=== PATIENT | female | born 1940 | race African-American/Black ===

== ENCOUNTER 2021-08-10 16:58 | Inpatient (IN) | payer MEDICARE ==
[~2021-08-10] VITALS: Ht 160 cm; Wt 44.8 kg
[2021-08-10] MEDS ORDERED: IV NORMAL SALINE 1000ML BAG 1,000 ML IV ONE (17:15)
--- NOTE | 2021-08-10 17:32 | PHYS DOC ---
Past Medical History Past Medical History: Bronchitis, Hypertension (SUSAN ALLRED APRN) Smoking Status: Never Smoker (SUSAN ALLRED APRN) General Adult EDM: Chief Complaint: WEAKNESS/GENERALIZED HPI: HPI: Patient is an 81-year-old female that presents today via [facility] for weakness. Patient states for about 1 week she has been having increased weakness. Patient states that she has had some nausea vomiting but unable to elaborate on that. Patient states that she denies chest pain she does have shortness of breath, does have some abdominal pain currently her oxygenation le molina is 88%, her heart rate is currently 132 sinus tach. Patient denies taking any anticoagulation therapy, she does states she takes an aspirin a day. Patient states she did have the Covid vaccine Monty & Monty but has not had any booster or influenza vaccine. Patient has never been to [facility]. (SUSAN ALLRED APRN) HPI: This patient was initially picked up by the nurse practitioner. I assumed care. The nurse practitioner had initially not ordered a portable chest x-ray or plain film, but rather ordered a CT angiogram of the chest abdomen pel pelvis secondary to the patient complaining of shortness of breath and having tachycardia. I personally took my own history, examined the patient myself. The patient reports at least 2 weeks of cough, yellow sputum, progressively worsening shortness of breath, wheezing. She denies hemoptysis. She denies any known sick contacts, denies travel history, denies recent hospitalization within the last 90 days. She reports that last year she received a Monty & Monty COVID vaccine, but she not received a booster. She smokes tobacco, though she reports that she has been trying to quit smoking, only over the last week or so. She is unaware of having had a previous chest x-ray, denies any known history of chronic pulmonary disease, though she does report that "I have bronchitis." She denies lower extremity pain or swelling. She denies any worsening dyspnea with exertion. She reports that she has previously used inhalers, but she has not been using them recently. She has had some generalized fatigue and malaise over the last few days. She has had subjective fevers and chills. (NALLELY ARCE DO) Review of Systems: Review of Systems: Constitutional: Denies fever or chills. [] Eyes: Denies change in visual acuity. [] HENT: Denies nasal congestion or sore throat. [] Respiratory: Shortness of air denies cough. [] Cardiovascular: Denies chest pain or edema. [] GI: Abdominal pain, nausea, vomiting denies bloody stools or diarrhea. [] : Denies dysuria. [] Musculoskeletal: Denies back pain or joint pain. [] Integument: Denies rash. [] Neurologic: Denies headache, focal weakness or sensory changes. [] Endocrine: Denies polyuria or polydipsia. [] Lymphatic: Denies swollen glands. [] Psychiatric: Denies depression or anxiety. [] (SUSAN ALLRED APRN) Heart Score: C/O Chest Pain: N/A Risk Factors: Risk Factors: DM, Current or recent (<one month) smoker, HTN, HLP, family history of CAD, obesity. Risk Scores: Score 0 - 3: 2.5% MACE over next 6 weeks - Discharge Home Score 4 - 6: 20.3% MACE over next 6 weeks - Admit for Clinical Observation Score 7 - 10: 72.7% MACE over next 6 weeks - Early Invasive Strategies (SUSAN ALLRED APRN) C/O Chest Pain: No (YAZMIN,NALLELY M DO) Current Medications: Current Medications Medications (Trade) Dose Ordered Sig/Leo Start Time Stop Time Status Last Admin Dose Admin Sodium Chloride 1,000 ml @ 999 mls/hr 1X ONCE 08/10/21 17:15 08/10/21 18:15 UNV (SUSAN ALLRED APRN) Physical Exam: PE: Constitutional: Well developed, well nourished, moderate distress, non-toxic appearance. [] HENT: Normocephalic, atraumatic, bilateral external ears normal, oropharynx moist, no oral exudates, nose normal. [] Eyes: PERRLA, EOMI, conjunctiva normal, no discharge. [] Neck: Normal range of motion, no tenderness, supple, no stridor. [] Cardiovascular: classroom monitor shows sinus tachycardia, no murmur Lungs & Thorax: Diminished breath sounds on the left, clear breath sounds on the right, increased work of breathing noted Abdomen: Bowel sounds normal, soft, no tenderness, no masses, no pulsatile masses. [] Skin: Warm, dry, no erythema, no rash. [] Back: No tenderness, no CVA tenderness. [] Extremities: No tenderness, no cyanosis, no clubbing, ROM intact, no edema, 1+ peripheral pulses Neurologic: Alert and oriented X 3, normal motor function, normal sensory function, no focal deficits noted. [] Psychologic: Affect normal, judgement normal, mood normal. [] (SUSAN ALLRED APRN) PE: On exam, the patient demonstrates mild to moderate respiratory distress, tachypnea. She is audibly wheezing. Lung exam shows markedly decreased/diminis hed breath sounds in the left chest. Diffuse expiratory wheezing bilaterally. No nasal flaring, no retractions. No cyanosis. She speaks in full and clear sentences. Heart demonstrates mild tachycardia in the low 110s, regular. +2 radial and +2 posterior tibial pulses bilaterally. No peripheral edema noted. No calf tenderness. Abdomen is soft, nondistended, nontender to palpation. No evidence of chest wall trauma or injury noted. Equal chest rise. Abdomen demonstrates no ascites or fluid wave. No contusions or abrasions of the chest, thorax or abdomen. (NALLELY ARCE DO) Current Patient Data: Labs: Laboratory Tests Test 08/10/21 18:25 White Blood Count 7.6 x10^3/uL Red Blood Count 3.72 x10^6/uL Hemoglobin 10.2 g/dL Hematocrit 32.0 % Mean Corpuscular Volume 86 fL Mean Corpuscular Hemoglobin 27 pg Mean Corpuscular Hemoglobin Concent 32 g/dL Red Cell Distribution Width 15.7 % Platelet Count 302 x10^3/uL Neutrophils (%) (Auto) 84 % Lymphocytes (%) (Auto) 2 % Monocytes (%) (Auto) 13 % Eosinophils (%) (Auto) 0 % Basophils (%) (Auto) 0 % Neutrophils # (Auto) 6.4 x10^3/uL Lymphocytes # (Auto) 0.2 x10^3/uL Monocytes # (Auto) 1.0 x10^3/uL Eosinophils # (Auto) 0.0 x10^3/uL Basophils # (Auto) 0.0 x10^3/uL Segmented Neutrophils % 84 % Band Neutrophils % 3 % Lymphocytes % 4 % Monocytes % 9 % Platelet Estimate Adequate Sodium Level 144 mmol/L Potassium Level 4.6 mmol/L Chloride Level 105 mmol/L Carbon Dioxide Level 25 mmol/L Anion Gap 14 Blood Urea Nitrogen 79 mg/dL Creatinine 1.7 mg/dL Estimated GFR (Cockcroft-Gault) 34.7 BUN/Creatinine Ratio 46 Glucose Level 129 mg/dL Lactic Acid Level 2.0 mmol/L Calcium Level 8.8 mg/dL Total Bilirubin 0.6 mg/dL Aspartate Amino Transf (AST/SGOT) 32 U/L Alanine Aminotransferase (ALT/SGPT) 36 U/L Alkaline Phosphatase 87 U/L Troponin I High Sensitivity 11 ng/L PL-Mhp-Y-Type Natriuretic Peptide 1464 pg/mL Total Protein 7.1 g/dL Albumin 2.6 g/dL Albumin/Globulin Ratio 0.6 Current Medications Medications (Trade) Dose Ordered Sig/Leo Route PRN Reason Start Time Stop Time Status Last Admin Dose Admin Sodium Chloride 1,000 ml @ 999 mls/hr 1X ONCE IV 08/10/21 17:15 08/10/21 18:15 DC 08/10/21 18:05 Methylprednisolone Sodium Succinate (SOLU-Medrol 125MG VIAL) 125 mg 1X ONCE IV 08/10/21 19:30 08/10/21 19:31 DC 08/10/21 19:32 Albuterol/ Ipratropium (Duoneb) 3 ml 1X ONCE NEB 08/10/21 19:30 08/10/21 19:31 DC Vital Signs Vital Signs: Vital Signs Date Time Temp Pulse Resp B/P (MAP) Pulse Ox O2 Delivery O2 Flow Rate FiO2 08/10/21 17:00 97.7 138 28 140/80 (100) 98 Nasal Cannula 2.0 97.7 (SERGEI ALLREDEN BULB WEEDER) EKG: EKG: [] (SUSAN ALLRED BULB WEEDER) EKG: EKG was interpreted by Dr. Walker at 1729 I reviewed the EKG myself as well Rhythm is sinus tachycardia Rate is 130 bpm marked artifact No obvious STEMI (NALLELY ARCE DO) Radiology/Procedures: Radiology/Procedures: [] (SUSAN ALLRED BULB WEEDER) Radiology/Procedures: IMAGING REPORT Signed PATIENT: RAUL ALLEN ACCOUNT: [id number] : 1940 LOCATION: [address] [place] [address] AGE: 81 SEX: F EXAM STATUS: ADM IN ORD. PHYSICIAN: NALLELY ARCE DO REASON: cough, dyspnea, wheezing PROCEDURE: PORTABLE CHEST 1V Exam: Chest one view INDICATION: Cough, dyspnea TECHNIQUE: Frontal view of the chest Comparisons: None FINDINGS: The cardiomediastinal silhouette and pulmonary vessels are within normal limits. Opacification of the left hemithorax. IMPRESSION: Opacification left hemithorax, likely related to large pleural effusion. Electronically signed by: Josefa Vicente MD (08/10/2021 10:12 PM) [facility] DICTATED and SIGNED BY: JOSEFA VICENTE MD DATE: 08/10/210 0 IMAGING REPORT Signed PATIENT: RAUL ALLEN ACCOUNT: [id number] : 1940 LOCATION: [address] [place] [address] AGE: 81 SEX: F EXAM STATUS: ADM IN ORD. PHYSICIAN: NALLELY ARCE DO REASON: large left pleural effusion, OMNI 300 60 ML IV PROCEDURE: CT CHEST W/CONTRAST Exam: CT of chest with contrast INDICATION: Large left pleural effusion TECHNIQUE: Sequential axial images through the chest obtained following the administration of 60 mL of Isovue-370 IV contrast. Sagittal and coronal reformatted images were reconstructed from the axial data and reviewed. 3-D reformatted images were reconstructed from the axial data and reviewed. Exposure: One or more of the following in the visualized dose reduction techniques were utilized for this examination: 1. Automated exposure control 2. Adjustment of the MA and/or KV according to patient size 3. Use of iterative of reconstructive technique Comparisons: Chest x-ray same day FINDINGS: Utilized portions of the thyroid are unremarkable. No enlarged mediastinal lymph nodes. Heart size is normal. No pericardial effusion. 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 Pulmonary artery is not enlarged. Airways are patent. There is a large left pleural effusion with complete atelectasis of the left lung. Cavitary lesion in the right upper lobe series 2 image 17 measuring 1.9 cm in long axis with asymmetrically thick rim of soft tissue. No internal fluid component is seen. Visualized upper abdomen is unremarkable. No suspicious osseous lesions or acute fractures. IMPRESSION: 1. Large left pleural effusion causing complete atelectasis of the left lung. 2. Cavitary lesion at the right upper lobe with peripheral soft tissue attenuation. This may represent emphysema with adjacent airspace disease versus cavitating infectious process. Attention on continued follow-up imaging is recommended Electronically signed by: Josefa Vicente MD (08/10/2021 9:15 PM) [facility] DICTATED and SIGNED BY: JOSEFA VICENTE MD DATE: 08/10/21 [id number] (NALLELY ARCE DO) Course & Med Decision Making: Course & Med Decision Making Pertinent Labs and Imaging studies reviewed. (See chart for details) 1956 I discussed this case with Dr. Arce and she has agreed to take over this patient's care at this time. (SUSAN ALLRED APRN) Course & Med Decision Making The patient is placed on supplemental oxygen. On nasal cannula oxygen, she is saturating in the mid 90s. DuoNeb is ordered, IV Solu-Medrol empirically ordered. Covid swab returned as positive. Blood cultures and lactate are ordered. I ordered a portable chest x-ray. There is significant atelectasis and large left-sided pleural effusion. I ordered a CT with contrast of the ch est. There is a large pulmonary lesion concerning for possible developing infectious process or malignancy. I do suspect high likelihood of malignant effusion. The patient reports feeling much better. She is resting comfortably tachypnea is improved, tachycardia is improved. She denies chest pain. I empirically ordered IV doxycycline for her. I explained that she needs to be admitted to the hospital, she will need to see pulmonology, possibly infectious disease. She will require thoracentesis and fluid sampling. She is not manifesting evidence of significant distress at this time, hemodynamically stable, no evidence of hypoxia with supplemental oxygen. She is comfortable with the plan of care. She is excepted for admission by her primary care doct or, Dr. Durbin. (NALLELY ARCE DO) Dragon Disclaimer: Dragon Disclaimer: This electronic medical record was generated, in whole or in part, using a voice recognition dictation system. (SUSAN ALLRED APRN) Departure Departure Impression: Primary Impression: Pleural effusion, left Additional Impressions: Mass of left lung COVID-19 Respiratory failure with hypoxia Qualified Codes: J96.91 - Respiratory failure, unspecified with hypoxia Disposition: ADMITTED INPATIENT Admitting Physician: Chitra Durbin (NALLELY ARCE DO) Condition: GUARDED SUSAN ALLRED APRN Aug 10, 2021 17:32 NALLELY ARCE DO Aug 10, 2021 21:21
[2021-08-10 18:37] LABS: BASO % 0 % (0-3); EOS % 0 % (0-3); HEMOGLOBIN 10.2 g/dL (12.0-15.5); LYMPH # 0.2 x10^3/uL (1.0-4.8); LYMPH % 2 % (24-48); MEAN CORPUSCULAR HEMOGLOBIN 27 pg (25-35); MEAN CORPUSCULAR HGB CONC 32 g/dL (31-37); MEAN CORPUSCULAR VOLUME 86 fL (79-100); MONO % 13 % (0-9); NEUT # 6.4 x10^3/uL (1.8-7.7); NEUT % 84 % (31-73); PLATELET COUNT 302 x10^3/uL (140-400); RED BLOOD COUNT 3.72 x10^6/uL (3.50-5.40); RED CELL DISTRIBUTION WIDTH 15.7 % (11.5-14.5); WHITE BLOOD COUNT 7.6 x10^3/uL (4.0-11.0)
[2021-08-10 18:52] LABS: CALCIUM 8.8 mg/dL (8.5-10.1); CREATININE 1.7 mg/dL (0.6-1.0); GFR 34.7; POTASSIUM 4.6 mmol/L (3.5-5.1)
[2021-08-10 19:06] LABS: ALBUMIN 2.6 g/dL (3.4-5.0); ALBUMIN/GLOBULIN RATIO 0.6 (1.0-1.7); TOTAL BILIRUBIN 0.6 mg/dL (0.2-1.0); TOTAL PROTEIN 7.1 g/dL (6.4-8.2)
[2021-08-10] MEDS ORDERED: methylPREDNISolone SOD SUCC PF 125 MG/2 ML VIAL. IV ONE (19:30)
[2021-08-10] MEDS ORDERED: IPRATRPIUM/ALBUTEROL 0.5/2.5MG 3 ML NEBU. NEB ONE (19:30)
[2021-08-10 19:37] LABS: % BANDS 3 % (0-9); % LYMPHS 4 % (24-48); % MONOS 9 % (0-10); % SEGS 84 % (35-66); PLT ESTIMATE ADEQUATE (ADEQUATE)
[2021-08-10 19:58] LABS: INFLUENZA A PATIENT NEGATIVE (NEGATIVE); INFLUENZA B PATIENT NEGATIVE (NEGATIVE)
[2021-08-10] MEDS ORDERED: IOHEXOL 300 MG/ML 100ML VIAL. IV ONE (21:00)
--- NOTE | 2021-08-10 21:18 | RAD ---
Exam: CT of chest with contrast INDICATION: Large left pleural effusion TECHNIQUE: Sequential axial images through the chest obtained following the administration of 60 mL o f Isovue-370 IV contrast. Sagittal and coronal reformatted images were reconstructed from the axial d vincent and reviewed. 3-D reformatted images were reconstructed from the axial data and reviewed. Exposure: One or more of the following in the visualized dose reduction techniques were utilized for this examination: 1. Automated exposure control 2. Adjustment of the MA and/or KV according to patient size 3. Use of iterative of reconstructive technique Comparisons: Chest x-ray same day FINDINGS: Utilized portions of the thyroid are unremarkable. No enlarged mediastinal lymph nodes. Heart size is normal. No pericardial effusion. Ectatic dilatation of the descending thoracic aorta me asuring up to 3.8 cm in diameter with ulcerated plaque circumferentially. Pulmonary artery is not enl arged. Airways are patent. There is a large left pleural effusion with complete atelectasis of the left lung . Cavitary lesion in the right upper lobe series 2 image 17 measuring 1.9 cm in long axis with asymme trically thick rim of soft tissue. No internal fluid component is seen. Visualized upper abdomen is unremarkable. No suspicious osseous lesions or acute fractures. IMPRESSION: 1. Large left pleural effusion causing complete atelectasis of the left lung. 2. Cavitary lesion at the right upper lobe with peripheral soft tissue attenuation. This may represe nt emphysema with adjacent airspace disease versus cavitating infectious process. Attention on contin ued follow-up imaging is recommended Electronically signed by: Josefa Bunch MD (08/10/2021 9:15 PM) [facility]
[2021-08-10 21:30] LABS: BILIRUBIN,URINE NEGATIVE (NEG); CLARITY,URINE CLEAR; COLOR,URINE YELLOW; PH,URINE 5.5 (<5.0-8.0); PROTEIN,URINE TRACE mg/dL (NEG-TRACE)
[2021-08-10 21:31] LABS: NITRITE,URINE NEGATIVE (NEG); UROBILINOGEN,URINE 0.2 mg/dL (0.2 mg/dL)
[2021-08-10 21:33] LABS: HYALINE CASTS, URINE FEW /HPF
[2021-08-10 21:34] LABS: GRANULAR CASTS,URINE OCCASIONAL /HPF
[2021-08-10 21:35] LABS: RBC,URINE 0 /HPF (0-2); WBC,URINE OCC /HPF (0-4)
[2021-08-10 21:36] LABS: BACTERIA,URINE FEW /HPF (0-FEW)
[2021-08-10 22:00] VITALS: BP 156/74
[2021-08-10] MEDS ORDERED: DOXYCYCLINE HYCLATE 100 MG in IV DEXTROSE 5% 100ML 100 ML IV ONE (22:00)
--- NOTE | 2021-08-10 22:15 | RAD ---
Exam: Chest one view INDICATION: Cough, dyspnea TECHNIQUE: Frontal view of the chest Comparisons: None FINDINGS: The cardiomediastinal silhouette and pulmonary vessels are within normal limits. Opacification of the left hemithorax. IMPRESSION: Opacification left hemithorax, likely related to large pleural effusion. Electronically signed by: Josefa Bunch MD (08/10/2021 10:12 PM) SERGIO
[2021-08-10] MEDS ORDERED: ACET500T33 PO (23:39)
[2021-08-10] MEDS ORDERED: ASPI-886 PO (23:40)
[2021-08-10] MEDS ORDERED: DIPH25CA58 PO (23:40)
[2021-08-11] MEDS ORDERED: OMEG1CAP68 PO (00:13)
[2021-08-11] MEDS ORDERED: ASCO500C PO (00:13)
[2021-08-11] MEDS: diphenhydrAMINE HCL 25 MG CAPSULE PO PRN ×2 (00:22→21:28)
[2021-08-11] MEDS: ACETAMINOPHEN 325 MG TABLET. PO PRN ×2 (00:22→21:28)
--- NOTE | 2021-08-11 01:40 | EKG ---
[facility] [address] [place] [address] Test Date: 2021-08-10 Test Time: 17:26:52 Pat Name: RAUL ALLEN Department: Room: [facility] Gender: F Climate Change Risk Assessor: : 1940 Requested By: SUSAN ALLRED Order Number: [id number] Reading MD: Damian Clements Measurements Intervals Cooter Rate: 130 P: -88 AK: 90 QRS: 39 QRSD: 80 T: 119 QT: 272 QTc: 406 Interpretive Statements SINUS TACHYCARDIA LEFT ATRIAL ABNORMALITY NON SPECIFIC ST-T WAVE CHANGES Electronically Signed On 08-12-2021 17:56:30 [employer] TEAM MEMBER by Damian Clements
--- NOTE | 2021-08-11 02:00 | NUR ---
The patient, RAUL ALLEN, 81 y/o, F admitted by ODETTE MILIAN MD, was given written information regarding hospital policies, unit procedures and mine surveyor HISTORY COMPLETED WELL CAN BE. CALLED HER DAUGHTER AND OBTAINED A SMALL PART OF HER HISTORY LIKE CURRENT ACTIVITY. MEDS NOT KNOWN. UP UNTIL THIS ILLNESS PT HAD BEEN DOING HER OWN THING. SHE DRIVES HERSELF AROUND. Valuables were checked and DOCUMENTED IN EMR. ALL SHE BROUGHT WAS A PAIR OF SOCKS..
[2021-08-11 03:26] VITALS: BP 96/64
[2021-08-11] MEDS ORDERED: ONDANSETRON PF 4 MG/2 ML VIAL. IVP PRN (06:30)
[2021-08-11 07:00] VITALS: BP 117/57
[2021-08-11] MEDS ORDERED: methylPREDNISolone SOD SUCC PF 40 MG/ML VIAL. IV ONE (08:00)
[2021-08-11] MEDS ORDERED: DEXAMETHASONE 4 MG TABLET PO SCH (08:00)
--- NOTE | 2021-08-11 08:27 | CONS ---
DATE OF CONSULTATION: 08/11/2021 REASON FOR CONSULTATION: I was asked to see this 81-year-old lady for abnormal chest x-ray. HISTORY OF PRESENT ILLNESS: She does have history of [id number] smoking, continues to smoke. She presented to Emergency Room via EMS for weakness. She is a poor historian. She has had weakness for the past week. She does have mild shortness of breath. She has a cough. She has had some nausea and vomiting. She denies chest pain. On 4 liters of oxygen, her O2 saturation is 100%. She is tired. She had Monty and Monty vaccine last year. She did not have booster. Her COVID-19 testing is positive. PAST MEDICAL HISTORY: COPD, hypertension. ALLERGIES: No known drug allergies. MEDICATIONS: The patient was given Solu-Medrol and doxycycline in the Emergency Room. SOCIAL HISTORY: History of [id number] smoking, continues to smoke. FAMILY HISTORY: Hypertension. REVIEW OF SYSTEMS: As mentioned as above, other systems otherwise negative. PHYSICAL EXAMINATION: GENERAL: This is a malnourished lady. She is not in distress. VITAL SIGNS: Her O2 saturation on 4 liters of oxygen is 100%, respiratory rate 16, heart rate 100, blood pressure 96/64, temperature 98.1. HEENT: Normocephalic, atraumatic. CARDIOVASCULAR: Regular rate and rhythm. CHEST: Inspection is normal. There is no accessory muscle use. ABDOMEN: There is no paradoxical abdominal motion. EXTREMITIES: There is no cyanosis. SKIN: There is no rash. NEUROLOGICAL: Alert. LABORATORY DATA: I reviewed the following lab data: CT of the chest showed a large left pleural effusion. There is a cavitary lesion, 1.9 cm in right upper lobe area, this may represent emphysema with adjacent airspace disease versus cavitary lesion. WBC 7.6, hemoglobin 10.2, platelet 302. COVID rapid testing positive. Influenza A and B negative. Sodium 144, potassium 4.6, chloride 105, CO2 of 25, BUN 79, creatinine 1.7. BNP 1464, total bilirubin 0.6, AST 32, ALT 36, alkaline phosphatase 87. IMPRESSION: 1. Acute hypoxemic respiratory failure, multifactorial in etiology. 2. Abnormal chest x-ray with large left pleural effusion. I suspect we are dealing with malignancy and this fluid is accumulated gradually as the patient is not in distress. 3. Right upper lobe lesion, emphysema with adjacent airspace disease versus cavitary lesion. 4. Chronic obstructive pulmonary disease with acute exacerbation. 5. Smoker. 6. COVID-19. 7. Hypertension. PLAN AND RECOMMENDATIONS: 1. Titrate FiO2 to keep O2 saturation 92%. 2. Start Solu-Medrol 40 mg IV every 8 hours. 3. Start Rocephin. 4. I will ask IR to place a chest tube, send pleural fluid for pH cytology, cell count, LDH, total protein, glucose, AFB smear with culture, fungal smear with culture, Gram stain and culture. 5. May repeat a CT of the chest after chest tube was placed. 6. Bronchodilator. 7. I have advised her to stop smoking forever. prognosis poor Thank you very much for allowing me to participate in care of this very nice lady. MIHAI DR: Chapis TID: [id number] JOHN
[2021-08-11] MEDS: cefTRIAXone IV Push 1 GM VIAL. IVP SCH (08:37)
[2021-08-11 11:00] VITALS: BP 142/74
--- NOTE | 2021-08-11 12:39 | PDOC ---
Provider Note Date of Service: DATE: 08/11/21 TIME: 12:37 Provider Note Pt seen .H&P dictated.# [id number]. spoke with pts daughter DPOA. poor prognosis. Justifications for Admission Other Justification ODETTE MILIAN MD Aug 11, 2021 12:39
[2021-08-11] MEDS: IV NORMAL SALINE 1000ML BAG 1,000 ML IV SCH (13:20)
[2021-08-11] MEDS: methylPREDNISolone SOD SUCC PF 40 MG/ML VIAL. IV SCH ×2 (14:29→19:29)
[2021-08-11 15:00] VITALS: BP 129/65
--- NOTE | 2021-08-11 15:20 | HP ---
DATE OF SERVICE: 08/11/2021 ADMIT DATE: 08/10/2021 MEDICAL HISTORY AND PHYSICAL REASON FOR ADMISSION TO THE HOSPITAL: Shortness of breath, large left pleural effusion. HISTORY OF PRESENT ILLNESS: The patient is an 81-year-old female. The patient has been not feeling well. She has been weak and she has been losing weight, was brought to the hospital. She was COVID positive. X-ray shows complete whiteout of the left lung, had a CT chest, which shows large pleural effusion, completely collapsed in the left lung. The patient was admitted to the hospital and Pulmonary was consulted. PAST MEDICAL HISTORY: As per the family, last time she was in the hospital was at 3-4 years ago when she broke her hip. Family also said that they found a lump in the breast and then she refused further investigation and treatment, this was 1 year ago. She has a history of COPD, hypertension. ALLERGIES: No known drug allergies. SOCIAL HISTORY: Sixty-pack years, continues to smoke. Denies alcohol. Lives at home. FAMILY HISTORY: Unremarkable and the patient had one J and J vaccination a month ago for COVID. REVIEW OF SYMPTOMS: Feels weak, tired, short of breath. MEDICATIONS AT HOME: Tylenol, aspirin, Benadryl, vitamin C, fish oil, mostly gbxr-zfi-aadhezi medicines. PHYSICAL EXAMINATION: GENERAL: The patient is cachectic. Weight 45 kg, BMI 17. VITAL SIGNS: At the time of exam shows temperature 98, pulse 138, respirations 28, blood pressure 140/80, 98% on 2 liters. HEENT: Head is atraumatic. Pupils equal. Oral cavity, dentures. NECK: Supple. CHEST: Symmetrical. LUNGS: Diminished breath sounds, left lung. CARDIOVASCULAR: S1, S2. ABDOMEN: Soft. No mass palpable. EXTERNAL GENITALIA: No Jackson. RECTUM: Deferred. EXTREMITIES: No calf tenderness, no edema. NEUROLOGIC: No focal deficits. Moving all extremities. LABORATORY DATA: Shows a white count of 7, hemoglobin 10, platelets are 302. Electrolytes show sodium 144, potassium 4.6, chloride 105, bicarbonate 25, BUN 79, creatinine 1.7, glucose 129. LFTs normal. BNP 1464. Urine negative. Serology: COVID test positive. Influenza negative. Chest x-ray shows opacification of the left hemithorax and CT of the chest shows a large left pleural effusion with complete atelectasis of the left lung, some cavitary lesion at the right upper lobe. FINAL IMPRESSION: 1. Large pleural effusion, most probably underlying lung cancer. 2. Some cavitary lesion in the right upper lobe. 3. COVID positive, only got 1 J and J a month ago. 4. Chronic obstructive pulmonary disease and smoker, 60-pack years. 5. Family says she had a breast lump and they did not want to pursue further investigations, that could be also maybe the source of malignant pleural effusion. PLAN: At this time, Pulmonary is consulted. Interventional Radiology is consulted. Needs a chest tube. Send fluid for cytology, cultures. In the meantime, broad-spectrum antibiotic, Rocephin and Solu-Medrol. Discussed with the patient's daughter. The patient's daughter expressed that she did not want much things done because of her age, refused treatment for breast lump in the past and they wanted to talk about themselves about code status. ANTONIETA DR: Adiel TID: [id number]
--- NOTE | 2021-08-11 16:31 | NUR ---
SPOKE WITH INTERVENTIONAL RADIOLOGIST BY PHONE. HE FEELS CHEST TUBE CAN WAIT UNTIL FRIDAY MORNING. HE STATES THAT IF CONDITION WORSENS, HE IS WILLING TO PLACE IT SOONER.
[2021-08-11 18:39] VITALS: BP 145/80
[2021-08-11 23:05] VITALS: BP 140/73
[2021-08-12] VITALS (9 sets, daily range): BP systolic 82–148; BP diastolic 51–79
[2021-08-12] MEDS: IV NORMAL SALINE 1000ML BAG 1,000 ML IV SCH ×3 (02:20→21:37)
[2021-08-12] MEDS: methylPREDNISolone SOD SUCC PF 40 MG/ML VIAL. IV SCH ×3 (05:40→21:35)
--- NOTE | 2021-08-12 07:31 | PDOC ---
PULMONARY PROGRESS NOTES DATE: 08/12/21 TIME: 07:29 Subjective on 02 3lpm is tired Vitals Vital Signs Date Time Temp Pulse Resp B/P (MAP) Pulse Ox O2 Delivery O2 Flow Rate FiO2 08/12/21 06:30 97.2 112 22 129/59 (82) 98 Nasal Cannula 3.0 97.2 ROS: No Nausea General: Alert Lungs: Other (l diminished bs percussion dull ) Cardiovascular: S1, S2 Abdomen: Soft Neuro Exam: Alert Skin: Warm Labs Laboratory Tests Test 08/10/21 18:25 08/10/21 19:17 08/10/21 21:22 White Blood Count 7.6 x10^3/uL (4.0-11.0) Red Blood Count 3.72 x10^6/uL (3.50-5.40) Hemoglobin 10.2 g/dL (12.0-15.5) Hematocrit 32.0 % (36.0-47.0) Mean Corpuscular Volume 86 fL (79-100) Mean Corpuscular Hemoglobin 27 pg (25-35) Mean Corpuscular Hemoglobin Concent 32 g/dL (31-37) Red Cell Distribution Width 15.7 % (11.5-14.5) Platelet Count 302 x10^3/uL (140-400) Neutrophils (%) (Auto) 84 % (31-73) Lymphocytes (%) (Auto) 2 % (24-48) Monocytes (%) (Auto) 13 % (0-9) Eosinophils (%) (Auto) 0 % (0-3) Basophils (%) (Auto) 0 % (0-3) Neutrophils # (Auto) 6.4 x10^3/uL (1.8-7.7) Lymphocytes # (Auto) 0.2 x10^3/uL (1.0-4.8) Monocytes # (Auto) 1.0 x10^3/uL (0.0-1.1) Eosinophils # (Auto) 0.0 x10^3/uL (0.0-0.7) Basophils # (Auto) 0.0 x10^3/uL (0.0-0.2) Segmented Neutrophils % 84 % (35-66) Band Neutrophils % 3 % (0-9) Lymphocytes % 4 % (24-48) Monocytes % 9 % (0-10) Platelet Estimate Adequate (ADEQUATE) Sodium Level 144 mmol/L (136-145) Potassium Level 4.6 mmol/L (3.5-5.1) Chloride Level 105 mmol/L (98-107) Carbon Dioxide Level 25 mmol/L (21-32) Anion Gap 14 (6-14) Blood Urea Nitrogen 79 mg/dL (7-20) Creatinine 1.7 mg/dL (0.6-1.0) Estimated GFR (Cockcroft-Gault) 34.7 BUN/Creatinine Ratio 46 (6-20) Glucose Level 129 mg/dL (70-99) Lactic Acid Level 2.0 mmol/L (0.4-2.0) Calcium Level 8.8 mg/dL (8.5-10.1) Total Bilirubin 0.6 mg/dL (0.2-1.0) Aspartate Amino Transf (AST/SGOT) 32 U/L (15-37) Alanine Aminotransferase (ALT/SGPT) 36 U/L (14-59) Alkaline Phosphatase 87 U/L (46-116) Troponin I High Sensitivity 11 ng/L (4-50) RW-Qgr-N-Type Natriuretic Peptide 1464 pg/mL (0-449) Total Protein 7.1 g/dL (6.4-8.2) Albumin 2.6 g/dL (3.4-5.0) Albumin/Globulin Ratio 0.6 (1.0-1.7) Influenza Type A Antigen Negative (NEGATIVE) Influenza Type B Antigen Negative (NEGATIVE) SARS-CoV-2 Antigen (Rapid) Positive (NEGATIVE) Urine Collection Type U cath Urine Color Yellow Urine Clarity Clear Urine pH 5.5 (<5.0-8.0) Urine Specific [place] 1.025 (1.000-1.030) Urine Protein Trace mg/dL (NEG-TRACE) Urine Glucose (UA) Negative mg/dL (NEG) Urine Ketones (Stick) Negative mg/dL (NEG) Urine Blood Negative (NEG) Urine Nitrite Negative (NEG) Urine Bilirubin Negative (NEG) Urine Urobilinogen Dipstick 0.2 mg/dL (0.2 mg/dL) Urine Leukocyte Esterase Negative (NEG) Urine RBC 0 /HPF (0-2) Urine WBC Occ /HPF (0-4) Urine Renal Epithelial Cells Few /LPF Urine Bacteria Few /HPF (0-FEW) Urine Hyaline Casts Few /HPF Urine Granular Casts Occasional /HPF Urine Mucus Mod /LPF Medications Active Scripts Medications Dose Route/Sig Max Daily Dose Days Date Category Fish Oil 500 Mg Softgel ([place]-3/Dha/Epa/Fish Oil) 1 Each Capsule 1 Cap PO DAILY 30 08/11/21 Reported Vitamin C (Ascorbic Acid) 500 Mg Capsule.er 500 Mg PO DAILY 08/11/21 Reported Aspirin Ec (Aspirin) 81 Mg Tablet.dr 81 Mg PO DAILY08 08/10/21 Reported Benadryl (Diphenhydramine Hcl) 25 Mg Capsule 1 Cap PO QHS 30 08/10/21 Reported Tylenol Extra Strength (Acetaminophen) 500 Mg Tablet 500 Mg PO PRN Q4HRS PRN 08/10/21 Reported Impression . IMPRESSION: 1. Acute hypoxemic respiratory failure, multifactorial in etiology. 2. Abnormal chest x-ray with large left pleural effusion. I suspect we are dealing with malignancy and this fluid is accumulated gradually as the patient is not in distress. 3. Right upper lobe lesion, emphysema with adjacent airspace disease versus cavitary lesion. 4. Chronic obstructive pulmonary disease with acute exacerbation. 5. Smoker. 6. COVID-19 testing +. 7. Hypertension. Plan . PLAN AND RECOMMENDATIONS: 1. Titrate FiO2 to keep O2 saturation 90%. 2. Solu-Medrol 40 mg IV every 8 hours. 3. Rocephin. 4. IR consulted to place a chest tube, send pleural fluid for pH cytology, cell count, LDH, total protein, glucose, AFB smear with culture, fungal smear with culture, Gram stain and culture. 5. repeat a CT of the chest after chest tube was placed. 6. Bronchodilator. 7. stop smoking forever. prognosis poor GAYLA ROJAS MD Aug 12, 2021 07:31
[2021-08-12 09:26] LABS: CALCIUM 9.2 mg/dL (8.5-10.1); CREATININE 1.9 mg/dL (0.6-1.0); GFR 30.5
[2021-08-12] MEDS: cefTRIAXone IV Push 1 GM VIAL. IVP SCH (09:26)
[2021-08-12 09:30] LABS: TOTAL PROTEIN 7.5 g/dL (6.4-8.2)
--- NOTE | 2021-08-12 09:58 | PDOC ---
IM PROGRESS NOTES- Subjective Subjective Complaints of pain. She is a poor historian. Unable to do full systems review. Objective Vitals/I&O Vital Signs Date Time Temp Pulse Resp B/P (MAP) Pulse Ox O2 Delivery O2 Flow Rate FiO2 08/12/21 06:30 97.2 112 22 129/59 (82) 98 Nasal Cannula 3.0 97.2 I & O 08/11/21 08/11/21 08/12/21 15:00 23:00 07:00 Intake Total 0 ml 100 ml 50 ml Output Total 200 ml 1050 ml Balance -200 ml 100 ml -1000 ml Physical Exam Physical Exam General Appearance - alert and in mild distress She is thin, forgetful and chronically ill. Chest - decreased breath sounds at bases, coarse breath sounds Heart - S1 and S2 normal Abdomen - soft, non tender Neurological - alert and forgetful Musculoskeletal - generalized weakness Extremities - no edema Labs Laboratory Tests Test 08/12/21 08:20 Sodium Level 144 mmol/L (136-145) Potassium Level 5.0 mmol/L (3.5-5.1) Chloride Level 107 mmol/L (98-107) Carbon Dioxide Level 25 mmol/L (21-32) Anion Gap 12 (6-14) Blood Urea Nitrogen 100 mg/dL (7-20) H Creatinine 1.9 mg/dL (0.6-1.0) H Estimated GFR (Cockcroft-Gault) 30.5 Glucose Level 156 mg/dL (70-99) H Calcium Level 9.2 mg/dL (8.5-10.1) Lactate Dehydrogenase 157 U/L (81-234) Total Protein 7.5 g/dL (6.4-8.2) Laboratory Tests 08/12/21 08:20 Meds Current Medications Medications (Trade) Dose Ordered Sig/Leo Route PRN Reason Start Time Stop Time Status Last Admin Dose Admin Methylprednisolone Sodium Succinate (SOLU-Medrol 40MG VIAL) 40 mg Q8HRS IV 08/11/21 14:00 08/12/21 05:40 Sodium Chloride 1,000 ml @ 75 mls/hr [id number] IV 08/11/21 13:00 08/12/21 02:20 Assessment Assessment 1. Large pleural effusion, most probably underlying lung cancer. 2. Some cavitary lesion in the right upper lobe. 3. COVID positive, only got 1 J and J a month ago. 4. Chronic obstructive pulmonary disease and smoker, 60-pack years. 5. Family says she had a breast lump and they did not want to pursue further investigations, that could be also maybe the source of malignant pleural effusion. PLAN: At this time, Pulmonary is consulted. Interventional Radiology is consulted. Needs a chest tube. Send fluid for cytology, cultures. In the meantime, broad-spectrum antibiotic, Rocephin and Solu-Medrol. Discussed with the patient's daughter. The patient's daughter expressed that she did not want much things done because of her age, refused treatment for breast lump in the past and they wanted to talk about themselves about code status. Check labs in a.m. Acute renal failure-BUN is 100, creatinine 1.9. Increase normal saline 200 c c/h. Consult Dr. Pope for nephrology evaluation and management. Recheck labs in a.m. Prognosis of this patient is very poor due to her multiple medical problems. Start DVT prophylaxis with subcu heparin. Plan Plan For more details regarding further plans, please refer to the orders. Justifications for Admission Other Justification ISABELLE SU MD Aug 12, 2021 09:58
[2021-08-12] MEDS: HEPARIN for SUB-Q USE 5,000 UNIT/ML VIAL. SQ SCH ×2 (10:36→21:36)
[2021-08-12] MEDS: ACETAMINOPHEN 325 MG TABLET. PO PRN (10:37)
[2021-08-12] MEDS: INSULIN LISPRO 300 UNITS/3 ML VIAL. SQ SCH ×2 (11:30→16:30)
--- NOTE | 2021-08-12 11:42 | NUR ---
PT REPORTED HEADACHE, REQUESTED PAIN MEDICATION. OFFERED TYLENOL, DECLINED. EDUCATED THAT IN ORDER TO MAKE A CASE FOR NEEDING SOMETHING STRONGER, WOULD NEED TO TAKE THIS DOSE, AND NOTE LACK OF IMPROVEMENT. PT CONTINUES TO DECLINE AT THIS TIME.
[2021-08-12 12:04] LABS: BILIRUBIN,URINE NEGATIVE (NEG); CLARITY,URINE CLEAR; COLOR,URINE YELLOW; NITRITE,URINE NEGATIVE (NEG); PH,URINE 5.5 (<5.0-8.0); PROTEIN,URINE TRACE mg/dL (NEG-TRACE); UROBILINOGEN,URINE 0.2 mg/dL (0.2 mg/dL)
[2021-08-12 12:05] LABS: BACTERIA,URINE MODERATE /HPF (0-FEW); HYALINE CASTS, URINE OCCASIONAL /HPF
[2021-08-12 12:06] LABS: AMORPHOUS SEDIMENT,UR PRESENT /HPF
--- NOTE | 2021-08-12 12:13 | NUR ---
PT HAS VERY POOR APPETITE. SHOWS NO INTEREST IN EATING LUNCH PROVIDED, NOR WILL TAKE ANY ADDITIONAL SNACKS OFFERED BY NURSING. INSULIN HELD AT THIS TIME 2/2 PT NOT EATING.
--- NOTE | 2021-08-12 13:46 | PDOC2 ---
CONSULT Date of Consult Date of Consult DATE: 08/12/21 TIME: 13:43 Reason for Consult Reason for Consult: Acute Renal failure Source Source: Chart review History of Present Illness Reason for Visit: Patient is an 81-year-old female admitted with c/o not been not feeling well, Shortness of breath, She has been weak and she has been losing weight, No F/C. Denies N/V . No Urinary complaints Found to be COVID positive. X-ray shows complete whiteout of the left lung, had a CT chest, which shows large pleural effusion, completely collapsed in the left lung. Past Medical History Past Medical History As per the family, last time she was in the hospital was at 3-4 years ago when she broke her hip. Family also said that they found a lump in the breast and then she refused further investigation and treatment, this was 1 year ago. She has a history of COPD, hypertension. Family History Family History Non Contributory Social History Social History Sixty-pack years, continues to smoke. Denies alcohol. Lives at home. Current Problem List Problem List Problems Medical Problems: (1) COVID-19 Status: Acute (2) Mass of left lung Status: Acute (3) Pleural effusion, left Status: Acute (4) Respiratory failure with hypoxia Status: Acute Current Medications Current Medications Current Medications Sodium Chloride 1,000 ml @ 999 mls/hr 1X ONCE IV Last administered on 08/10/21at 18:05; Start 08/10/21 at 17:15; Stop 08/10/21 at 18:15; Status DC Methylprednisolone Sodium Succinate (SOLU-Medrol 125MG VIAL) 125 mg 1X ONCE IV Last administered on 08/10/21at 19:32; Start 08/10/21 at 19:30; Stop 08/10/21 at 19:31; Status DC Albuterol/ Ipratropium (Duoneb) 3 ml 1X ONCE NEB Last administered on 08/10/21at 19:30; Start 08/10/21 at 19:30; Stop 08/10/21 at 19:31; Status DC Iohexol (Omnipaque 300 Mg/ml) 60 ml 1X ONCE IV Last administered on 08/10/21at 20:58; Start 08/10/21 at 21:00; Stop 08/10/21 at 21:01; Status DC Doxycycline Hyclate 100 mg/ Dextrose 100 ml @ 50 mls/hr 1X ONCE IV Last administered on 08/10/21at 23:02; Start 08/10/21 at 22:00; Stop 08/10/21 at 23:59; Status DC Acetaminophen (Tylenol) 650 mg PRN Q6HRS PRN PO MILD PAIN / TEMP > 100.3'F Last administered on 08/11/21at 21:28; Start 08/11/21 at 00:00 Diphenhydramine HCl (Benadryl) 25 mg PRN QHS PRN PO INSOMNIA Last administered on 08/11/21at 21:28; Start 08/11/21 at 00:00 Ondansetron HCl (Zofran) 4 mg PRN Q8HRS PRN IVP NAUSEA/VOMITING 1ST CHOICE; Start 08/11/21 at 06:30; Stop 08/12/21 at 06:29; Status DC Dexamethasone (Decadron) 6 mg DAILYWBKFT PO ; Start 08/11/21 at 08:00; Stop 08/11/21 at 07:23; Status DC Methylprednisolone Sodium Succinate (SOLU-Medrol 40MG VIAL) 40 mg Q8HRS IV Last administered on 08/12/21at 05:40; Start 08/11/21 at 14:00 Methylprednisolone Sodium Succinate (SOLU-Medrol 40MG VIAL) 40 mg 1X ONCE IV Last administered on 08/11/21at 08:37; Start 08/11/21 at 08:00; Stop 08/11/21 at 08:01; Status DC Ceftriaxone Sodium (Rocephin) 1 gm Q24H IVP Last administered on 08/12/21at 09:26; Start 08/11/21 at 09:00 Sodium Chloride 1,000 ml @ 100 mls/hr Q10H IV Last administered on 08/12/21at 02:20; Start 08/11/21 at 13:00 Insulin Human Lispro (HumaLOG) 0-8 UNITS TIDBFRMEAL SQ ; Start 08/12/21 at 11:30 Heparin Sodium (Porcine) (Heparin Sodium) 5,000 unit Q12HR SQ Last administered on 08/12/21at 10:36; Start 08/12/21 at 11:00 Active Scripts Active Reported Fish Oil 500 Mg Softgel ([place]-3/Dha/Epa/Fish Oil) 1 Each Capsule 1 Cap PO DAILY 30 Days Vitamin C (Ascorbic Acid) 500 Mg Capsule.er 500 Mg PO DAILY Aspirin Ec (Aspirin) 81 Mg Tablet.dr 81 Mg PO DAILY08 Benadryl (Diphenhydramine Hcl) 25 Mg Capsule 1 Cap PO QHS 30 Days Tylenol Extra Strength (Acetaminophen) 500 Mg Tablet 500 Mg PO PRN Q4HRS PRN Allergies Allergies: Coded Allergies: No Known Drug Allergies (Unverified , 08/10/21) ROS Review of System As per HPI, rest of the ROS is negative Physical Exam Physical Exam GENERAL: cachectic HEENT: OM mildly dry NECK: Supple. LUNGS: Diminished breath sounds left lung. CARDIOVASCULAR: S1, S2. ABDOMEN: Soft. Not tender EXTREMITIES: no edema. NEUROLOGIC: No focal deficits. Moving all extremities No [place], No CVA r SP tenderness Vital Signs Vital Signs Date Time Temp Pulse Resp B/P (MAP) Pulse Ox O2 Delivery O2 Flow Rate FiO2 08/12/21 11:00 98.3 120 19 148/71 (96) 92 Nasal Cannula 3.0 98.3 Assessment & Plan LEONEL - ATN/ Non Oliguric , baseline renal function unknown to me . BUN high - steroids probably contributing, E-lytes stable . Supportive care, Maintain Hydration . Avoid Nephrotoxins , strict I/O . Bladder scan prn Acute hypoxemic respiratory failure- On o2 by NC Large pleural effusion, probably underlying lung cancer- Plan for Chest tube per pulmonary Cavitary lesion in the right upper lobe. COVID 19 positive, only got 1 dose of J and J a month ago. Chronic obstructive pulmonary disease and smoker, 60-pack years. Hx of breast lump and she did not want to pursue further investigations, that could be also maybe the source of malignant pleural effusion. Poor prognosis Labs Labs Laboratory Tests Test 08/10/21 18:25 08/10/21 19:17 08/10/21 21:22 08/12/21 08:20 White Blood Count 7.6 x10^3/uL (4.0-11.0) Red Blood Count 3.72 x10^6/uL (3.50-5.40) Hemoglobin 10.2 g/dL (12.0-15.5) Hematocrit 32.0 % (36.0-47.0) Mean Corpuscular Volume 86 fL (79-100) Mean Corpuscular Hemoglobin 27 pg (25-35) Mean Corpuscular Hemoglobin Concent 32 g/dL (31-37) Red Cell Distribution Width 15.7 % (11.5-14.5) Platelet Count 302 x10^3/uL (140-400) Neutrophils (%) (Auto) 84 % (31-73) Lymphocytes (%) (Auto) 2 % (24-48) Monocytes (%) (Auto) 13 % (0-9) Eosinophils (%) (Auto) 0 % (0-3) Basophils (%) (Auto) 0 % (0-3) Neutrophils # (Auto) 6.4 x10^3/uL (1.8-7.7) Lymphocytes # (Auto) 0.2 x10^3/uL (1.0-4.8) Monocytes # (Auto) 1.0 x10^3/uL (0.0-1.1) Eosinophils # (Auto) 0.0 x10^3/uL (0.0-0.7) Basophils # (Auto) 0.0 x10^3/uL (0.0-0.2) Segmented Neutrophils % 84 % (35-66) Band Neutrophils % 3 % (0-9) Lymphocytes % 4 % (24-48) Monocytes % 9 % (0-10) Platelet Estimate Adequate (ADEQUATE) Sodium Level 144 mmol/L (136-145) 144 mmol/L (136-145) Potassium Level 4.6 mmol/L (3.5-5.1) 5.0 mmol/L (3.5-5.1) Chloride Level 105 mmol/L (98-107) 107 mmol/L (98-107) Carbon Dioxide Level 25 mmol/L (21-32) 25 mmol/L (21-32) Anion Gap 14 (6-14) 12 (6-14) Blood Urea Nitrogen 79 mg/dL (7-20) 100 mg/dL (7-20) Creatinine 1.7 mg/dL (0.6-1.0) 1.9 mg/dL (0.6-1.0) Estimated GFR (Cockcroft-Gault) 34.7 30.5 BUN/Creatinine Ratio 46 (6-20) Glucose Level 129 mg/dL (70-99) 156 mg/dL (70-99) Lactic Acid Level 2.0 mmol/L (0.4-2.0) Calcium Level 8.8 mg/dL (8.5-10.1) 9.2 mg/dL (8.5-10.1) Total Bilirubin 0.6 mg/dL (0.2-1.0) Aspartate Amino Transf (AST/SGOT) 32 U/L (15-37) Alanine Aminotransferase (ALT/SGPT) 36 U/L (14-59) Alkaline Phosphatase 87 U/L (46-116) Troponin I High Sensitivity 11 ng/L (4-50) ME-Jzs-Y-Type Natriuretic Peptide 1464 pg/mL (0-449) Total Protein 7.1 g/dL (6.4-8.2) 7.5 g/dL (6.4-8.2) Albumin 2.6 g/dL (3.4-5.0) Albumin/Globulin Ratio 0.6 (1.0-1.7) Influenza Type A Antigen Negative (NEGATIVE) Influenza Type B Antigen Negative (NEGATIVE) SARS-CoV-2 Antigen (Rapid) Positive (NEGATIVE) Urine Collection Type U cath Urine Color Yellow Urine Clarity Clear Urine pH 5.5 (<5.0-8.0) Urine Specific [place] 1.025 (1.000-1.030) Urine Protein Trace mg/dL (NEG-TRACE) Urine Glucose (UA) Negative mg/dL (NEG) Urine Ketones (Stick) Negative mg/dL (NEG) Urine Blood Negative (NEG) Urine Nitrite Negative (NEG) Urine Bilirubin Negative (NEG) Urine Urobilinogen Dipstick 0.2 mg/dL (0.2 mg/dL) Urine Leukocyte Esterase Negative (NEG) Urine RBC 0 /HPF (0-2) Urine WBC Occ /HPF (0-4) Urine Renal Epithelial Cells Few /LPF Urine Bacteria Few /HPF (0-FEW) Urine Hyaline Casts Few /HPF Urine Granular Casts Occasional /HPF Urine Mucus Mod /LPF Lactate Dehydrogenase 157 U/L (81-234) Test 08/12/21 11:34 08/12/21 12:09 Urine Collection Type Unknown Urine Color Yellow Urine Clarity Clear Urine pH 5.5 (<5.0-8.0) Urine Specific [place] 1.025 (1.000-1.030) Urine Protein Trace mg/dL (NEG-TRACE) Urine Glucose (UA) Negative mg/dL (NEG) Urine Ketones (Stick) Negative mg/dL (NEG) Urine Blood Small (NEG) Urine Nitrite Negative (NEG) Urine Bilirubin Negative (NEG) Urine Urobilinogen Dipstick 0.2 mg/dL (0.2 mg/dL) Urine Leukocyte Esterase Trace (NEG) Urine RBC 3-5 /HPF (0-2) Urine WBC 5-10 /HPF (0-4) Urine Squamous Epithelial Cells Many /LPF Urine Amorphous Sediment Present /HPF Urine Bacteria Moderate /HPF (0-FEW) Urine Hyaline Casts Occasional /HPF Glucose (Fingerstick) 159 mg/dL (70-99) Laboratory Tests Test 08/12/21 08:20 08/12/21 11:34 08/12/21 12:09 Sodium Level 144 mmol/L (136-145) Potassium Level 5.0 mmol/L (3.5-5.1) Chloride Level 107 mmol/L (98-107) Carbon Dioxide Level 25 mmol/L (21-32) Anion Gap 12 (6-14) Blood Urea Nitrogen 100 mg/dL (7-20) Creatinine 1.9 mg/dL (0.6-1.0) Estimated GFR (Cockcroft-Gault) 30.5 Glucose Level 156 mg/dL (70-99) Calcium Level 9.2 mg/dL (8.5-10.1) Lactate Dehydrogenase 157 U/L (81-234) Total Protein 7.5 g/dL (6.4-8.2) Urine Collection Type Unknown Urine Color Yellow Urine Clarity Clear Urine pH 5.5 (<5.0-8.0) Urine Specific [place] 1.025 (1.000-1.030) Urine Protein Trace mg/dL (NEG-TRACE) Urine Glucose (UA) Negative mg/dL (NEG) Urine Ketones (Stick) Negative mg/dL (NEG) Urine Blood Small (NEG) Urine Nitrite Negative (NEG) Urine Bilirubin Negative (NEG) Urine Urobilinogen Dipstick 0.2 mg/dL (0.2 mg/dL) Urine Leukocyte Esterase Trace (NEG) Urine RBC 3-5 /HPF (0-2) Urine WBC 5-10 /HPF (0-4) Urine Squamous Epithelial Cells Many /LPF Urine Amorphous Sediment Present /HPF Urine Bacteria Moderate /HPF (0-FEW) Urine Hyaline Casts Occasional /HPF Glucose (Fingerstick) 159 mg/dL (70-99) Review All relevant outside records, renal labs, imaging studies, telemetry/EKG's were reviewed. Images Images Exam: Chest one view INDICATION: Cough, dyspnea TECHNIQUE: Frontal view of the chest Comparisons: None FINDINGS: The cardiomediastinal silhouette and pulmonary vessels are within normal limits. Opacification of the left hemithorax. IMPRESSION: Opacification left hemithorax, likely related to large pleural effusion. Exam: CT of chest with contrast INDICATION: Large left pleural effusion TECHNIQUE: Sequential axial images through the chest obtained following the administration of 60 mL of Isovue-370 IV contrast. Sagittal and coronal reformatted images were reconstructed from the axial data and reviewed. 3-D reformatted images were reconstructed from the axial data and reviewed. Exposure: One or more of the following in the visualized dose reduction techniques were utilized for this examination: 1. Automated exposure control 2. Adjustment of the MA and/or KV according to patient size 3. Use of iterative of reconstructive technique Comparisons: Chest x-ray same day FINDINGS: Utilized portions of the thyroid are unremarkable. No enlarged mediastinal lymph nodes. Heart size is normal. No pericardial effusion. Ectatic dilatation of the descending thoracic aorta measuring up to 3.8 cm in diameter with ulcerated plaque circumferentially. Pulmonary artery is not enlarged. Airways are patent. There is a large left pleural effusion with complete ate lectasis of the left lung. Cavitary lesion in the right upper lobe series 2 image 17 measuring 1.9 cm in long axis with asymmetrically thick rim of soft tissue. No internal fluid component is seen. Visualized upper abdomen is unremarkable. No suspicious osseous lesions or acute fractures. IMPRESSION: 1. Large left pleural effusion causing complete atelectasis of the left lung. 2. Cavitary lesion at the right upper lobe with peripheral soft tissue attenuation. This may represent emphysema with adjacent airspace disease versus cavitating infectious process. Attention on continued follow-up imaging is recommended JODI ESPINOZA MD Aug 12, 2021 13:46
--- NOTE | 2021-08-12 21:41 | RAD ---
XR CHEST 1V Clinical History: Reason: change in respir pattern / Spl. Instructions: / History: Technique: AP view of the chest was obtained at 08/12/2021 9:36 PM. Comparison: August 10, 2021. Findings: There is opacification of the left hemithorax. There is deviation of the heart and mediastinal conten ts to the right. Pulmonary vessels appear normal. This reticular opacities on the right which are lik cary chronic pulmonary fibrosis. The heart size is difficult to assess. Impression: Opacification of the left hemithorax is likely largely due to a large effusion. No change. Electronically signed by: Luis F Ramesh III, MD (08/12/2021 9:39 PM) [facility]
[2021-08-12 21:45] LABS: BASE EXCESS ABG -10 mmol/L (-3-3); HCO3 ABG 21 mmol/L (21-28); PO2 ABG 109 mmHg (65-108); SAT O2 ABG 96 % (92-99)
[2021-08-12 21:46] LABS: PCO2 ABG 78 mmHg (35-46)
[2021-08-12 21:47] LABS: FIO2 ABG 100
--- NOTE | 2021-08-12 22:03 | NUR ---
shift leader RN was pulling meds when hot metal charger called attention to pt. Per hot metal charger, pt's O2 was reading 52% and pt was exhibiting irregular pattern of breathing. Upon re-assessing pt, it was noted that breath sounds were absent on the left side and breathing pattern was almost agonal. Rapid response called at 2015, pt placed on NRB and then ambu-bag use initiated by RT. ABG obtained and results called to Dr. Nick at 2037. Orders obtained for transfer to ICU and initiation of biPAP. While ambu bag was in use, pt became more active, eye opening, moving extremities. Pt's family called and updated on pt condition and transfer to ICU. night RN, ICU hot metal charger, and RT transferred pt to room 113, nurse exchange report given at bedside. care transferred.
--- NOTE | 2021-08-12 22:06 | NUR ---
This nurse responded to a rapid response called on this patient at 2023 related to decrease in LOC, shallow respirations and unable to get an accurate O2 sat reading on monitor. Upon arrival patient lethargic but opens eyes to sternal rub. Respirations 12 and shallow on 100% NRB. Left side very diminished. Unable to get an O2 sat reading. Patient bagged with Ambu bag and ABG obtained. Dr. vazquez called with change in patient condition and ABG results. New orders received. Patient transferred to ICU for Bipap.
[2021-08-12] MEDS ORDERED: ATROPINE 0.5 MG/5 ML DISP.SYRINGE. IV PRN (22:30)
[2021-08-12] MEDS ORDERED: IV NORMAL SALINE 500ML BAG 500 ML IV PRN (22:30)
[2021-08-12] MEDS ORDERED: DEXMEDETOMIDINE 400 MCG in IV NORMAL SALINE 100ML 96 ML IV PRN (22:30)
--- NOTE | 2021-08-12 22:51 | NUR ---
Pt transferred to room [address] [place] [address] abed at 2100. Pt placed on bipap by RT. Respirations are even with a rate around 25. Unable to brass pickler O2 sat consistently but when it does brass pickler it reads 95-100%. Pt very restless and continuously moving in bed. Family notified of condition change and move to ICU. Family expresses wishes to intubate pt if need be.
[2021-08-13] VITALS (24 sets, daily range): BP systolic 94–149; BP diastolic 48–103
[2021-08-13 01:24] LABS: HCO3 ABG 20 mmol/L (21-28); PCO2 ABG 59 mmHg (35-46); PO2 ABG 141 mmHg (65-108)
[2021-08-13 01:25] LABS: BASE EXCESS ABG -9 mmol/L (-3-3)
[2021-08-13 01:26] LABS: SAT O2 ABG 98 % (92-99)
[2021-08-13 01:33] LABS: FIO2 ABG 100 18/6 18 100%
[2021-08-13] MEDS: methylPREDNISolone SOD SUCC PF 40 MG/ML VIAL. IV SCH ×3 (05:43→21:34)
[2021-08-13 06:06] LABS: BASO % 0 % (0-3); EOS % 0 % (0-3); HEMATOCRIT 33.3 % (36.0-47.0); HEMOGLOBIN 9.8 g/dL (12.0-15.5); LYMPH # 0.1 x10^3/uL (1.0-4.8); LYMPH % 1 % (24-48); MEAN CORPUSCULAR HEMOGLOBIN 26 pg (25-35); MEAN CORPUSCULAR HGB CONC 29 g/dL (31-37); MEAN CORPUSCULAR VOLUME 90 fL (79-100); MONO # 0.8 x10^3/uL (0.0-1.1); MONO % 4 % (0-9); NEUT # 16.9 x10^3/uL (1.8-7.7); NEUT % 95 % (31-73); PLATELET COUNT 265 x10^3/uL (140-400); RED BLOOD COUNT 3.71 x10^6/uL (3.50-5.40); WHITE BLOOD COUNT 17.8 x10^3/uL (4.0-11.0)
[2021-08-13 06:20] LABS: ALBUMIN 2.4 g/dL (3.4-5.0); ALBUMIN/GLOBULIN RATIO 0.5 (1.0-1.7); CALCIUM 8.4 mg/dL (8.5-10.1); CREATININE 2.5 mg/dL (0.6-1.0); GFR 22.3; POTASSIUM 5.7 mmol/L (3.5-5.1); TOTAL BILIRUBIN 0.6 mg/dL (0.2-1.0)
[2021-08-13] MEDS: INSULIN LISPRO 300 UNITS/3 ML VIAL. SQ SCH ×3 (07:30→16:30)
[2021-08-13 08:34] LABS: BASE EXCESS ABG -9 mmol/L (-3-3); HCO3 ABG 20 mmol/L (21-28); PCO2 ABG 58 mmHg (35-46); PO2 ABG 81 mmHg (65-108); SAT O2 ABG 93 % (92-99)
[2021-08-13 08:35] LABS: FIO2 ABG 60
--- NOTE | 2021-08-13 08:58 | PDOC ---
PULMONARY PROGRESS NOTES DATE: 08/13/21 TIME: 08:57 Subjective Patient currently on BiPAP Undergoing chest tube placement Vitals Vital Signs Date Time Temp Pulse Resp B/P (MAP) Pulse Ox O2 Delivery O2 Flow Rate FiO2 08/13/21 08:14 98 BiPAP/CPAP 08/13/21 08:00 97.3 114 118/60 (79) 97.3 08/13/21 06:00 20 08/13/21 04:00 15.0 Comments Unable to obtain, currently on BiPAP Cardiovascular: S1, S2 Abdomen: Soft Extremities: Other (Edema) Skin: Warm Labs Laboratory Tests Test 08/12/21 08:20 08/12/21 08:26 08/12/21 11:34 08/12/21 12:09 Sodium Level 144 mmol/L (136-145) Potassium Level 5.0 mmol/L (3.5-5.1) Chloride Level 107 mmol/L (98-107) Carbon Dioxide Level 25 mmol/L (21-32) Anion Gap 12 (6-14) Blood Urea Nitrogen 100 mg/dL (7-20) Creatinine 1.9 mg/dL (0.6-1.0) Estimated GFR (Cockcroft-Gault) 30.5 Glucose Level 156 mg/dL (70-99) Calcium Level 9.2 mg/dL (8.5-10.1) Lactate Dehydrogenase 157 U/L (81-234) Total Protein 7.5 g/dL (6.4-8.2) O2 Saturation 96 % (92-99) Arterial Blood pH 7.04 (7.35-7.45) Arterial Blood pCO2 at Patient Temp 78 mmHg (35-46) Arterial Blood pO2 at Patient Temp 109 mmHg (65-108) Arterial Blood HCO3 21 mmol/L (21-28) Arterial Blood Base Excess -10 mmol/L (-3-3) FiO2 100 Urine Collection Type Unknown Urine Color Yellow Urine Clarity Clear Urine pH 5.5 (<5.0-8.0) Urine Specific [place] 1.025 (1.000-1.030) Urine Protein Trace mg/dL (NEG-TRACE) Urine Glucose (UA) Negative mg/dL (NEG) Urine Ketones (Stick) Negative mg/dL (NEG) Urine Blood Small (NEG) Urine Nitrite Negative (NEG) Urine Bilirubin Negative (NEG) Urine Urobilinogen Dipstick 0.2 mg/dL (0.2 mg/dL) Urine Leukocyte Esterase Trace (NEG) Urine RBC 3-5 /HPF (0-2) Urine WBC 5-10 /HPF (0-4) Urine Squamous Epithelial Cells Many /LPF Urine Amorphous Sediment Present /HPF Urine Bacteria Moderate /HPF (0-FEW) Urine Hyaline Casts Occasional /HPF Glucose (Fingerstick) 159 mg/dL (70-99) Test 08/12/21 17:09 08/13/21 00:05 08/13/21 05:10 08/13/21 08:00 Glucose (Fingerstick) 148 mg/dL (70-99) O2 Saturation 98 % (92-99) 93 % (92-99) Arterial Blood pH 7.15 (7.35-7.45) 7.15 (7.35-7.45) Arterial Blood pCO2 at Patient Temp 59 mmHg (35-46) 58 mmHg (35-46) Arterial Blood pO2 at Patient Temp 141 mmHg (65-108) 81 mmHg (65-108) Arterial Blood HCO3 20 mmol/L (21-28) 20 mmol/L (21-28) Arterial Blood Base Excess -9 mmol/L (-3-3) -9 mmol/L (-3-3) FiO2 100 18/6 18 100% 60 White Blood Count 17.8 x10^3/uL (4.0-11.0) Red Blood Count 3.71 x10^6/uL (3.50-5.40) Hemoglobin 9.8 g/dL (12.0-15.5) Hematocrit 33.3 % (36.0-47.0) Mean Corpuscular Volume 90 fL (79-100) Mean Corpuscular Hemoglobin 26 pg (25-35) Mean Corpuscular Hemoglobin Concent 29 g/dL (31-37) Red Cell Distribution Width 16.0 % (11.5-14.5) Platelet Count 265 x10^3/uL (140-400) Neutrophils (%) (Auto) 95 % (31-73) Lymphocytes (%) (Auto) 1 % (24-48) Monocytes (%) (Auto) 4 % (0-9) Eosinophils (%) (Auto) 0 % (0-3) Basophils (%) (Auto) 0 % (0-3) Neutrophils # (Auto) 16.9 x10^3/uL (1.8-7.7) Lymphocytes # (Auto) 0.1 x10^3/uL (1.0-4.8) Monocytes # (Auto) 0.8 x10^3/uL (0.0-1.1) Eosinophils # (Auto) 0.0 x10^3/uL (0.0-0.7) Basophils # (Auto) 0.0 x10^3/uL (0.0-0.2) Sodium Level 151 mmol/L (136-145) Potassium Level 5.7 mmol/L (3.5-5.1) Chloride Level 112 mmol/L (98-107) Carbon Dioxide Level 22 mmol/L (21-32) Anion Gap 17 (6-14) Blood Urea Nitrogen 118 mg/dL (7-20) Creatinine 2.5 mg/dL (0.6-1.0) Estimated GFR (Cockcroft-Gault) 22.3 BUN/Creatinine Ratio 47 (6-20) Glucose Level 134 mg/dL (70-99) Calcium Level 8.4 mg/dL (8.5-10.1) Total Bilirubin 0.6 mg/dL (0.2-1.0) Aspartate Amino Transf (AST/SGOT) 1374 U/L (15-37) Alanine Aminotransferase (ALT/SGPT) 925 U/L (14-59) Alkaline Phosphatase 66 U/L (46-116) Total Protein 7.0 g/dL (6.4-8.2) Albumin 2.4 g/dL (3.4-5.0) Albumin/Globulin Ratio 0.5 (1.0-1.7) Laboratory Tests Test 08/12/21 11:34 08/12/21 12:09 08/12/21 17:09 08/13/21 00:05 Urine Collection Type Unknown Urine Color Yellow Urine Clarity Clear Urine pH 5.5 (<5.0-8.0) Urine Specific [place] 1.025 (1.000-1.030) Urine Protein Trace mg/dL (NEG-TRACE) Urine Glucose (UA) Negative mg/dL (NEG) Urine Ketones (Stick) Negative mg/dL (NEG) Urine Blood Small (NEG) Urine Nitrite Negative (NEG) Urine Bilirubin Negative (NEG) Urine Urobilinogen Dipstick 0.2 mg/dL (0.2 mg/dL) Urine Leukocyte Esterase Trace (NEG) Urine RBC 3-5 /HPF (0-2) Urine WBC 5-10 /HPF (0-4) Urine Squamous Epithelial Cells Many /LPF Urine Amorphous Sediment Present /HPF Urine Bacteria Moderate /HPF (0-FEW) Urine Hyaline Casts Occasional /HPF Glucose (Fingerstick) 159 mg/dL (70-99) 148 mg/dL (70-99) O2 Saturation 98 % (92-99) Arterial Blood pH 7.15 (7.35-7.45) Arterial Blood pCO2 at Patient Temp 59 mmHg (35-46) Arterial Blood pO2 at Patient Temp 141 mmHg (65-108) Arterial Blood HCO3 20 mmol/L (21-28) Arterial Blood Base Excess -9 mmol/L (-3-3) FiO2 100 18/6 18 100% Test 08/13/21 05:10 08/13/21 08:00 White Blood Count 17.8 x10^3/uL (4.0-11.0) Red Blood Count 3.71 x10^6/uL (3.50-5.40) Hemoglobin 9.8 g/dL (12.0-15.5) Hematocrit 33.3 % (36.0-47.0) Mean Corpuscular Volume 90 fL (79-100) Mean Corpuscular Hemoglobin 26 pg (25-35) Mean Corpuscular Hemoglobin Concent 29 g/dL (31-37) Red Cell Distribution Width 16.0 % (11.5-14.5) Platelet Count 265 x10^3/uL (140-400) Neutrophils (%) (Auto) 95 % (31-73) Lymphocytes (%) (Auto) 1 % (24-48) Monocytes (%) (Auto) 4 % (0-9) Eosinophils (%) (Auto) 0 % (0-3) Basophils (%) (Auto) 0 % (0-3) Neutrophils # (Auto) 16.9 x10^3/uL (1.8-7.7) Lymphocytes # (Auto) 0.1 x10^3/uL (1.0-4.8) Monocytes # (Auto) 0.8 x10^3/uL (0.0-1.1) Eosinophils # (Auto) 0.0 x10^3/uL (0.0-0.7) Basophils # (Auto) 0.0 x10^3/uL (0.0-0.2) Sodium Level 151 mmol/L (136-145) Potassium Level 5.7 mmol/L (3.5-5.1) Chloride Level 112 mmol/L (98-107) Carbon Dioxide Level 22 mmol/L (21-32) Anion Gap 17 (6-14) Blood Urea Nitrogen 118 mg/dL (7-20) Creatinine 2.5 mg/dL (0.6-1.0) Estimated GFR (Cockcroft-Gault) 22.3 BUN/Creatinine Ratio 47 (6-20) Glucose Level 134 mg/dL (70-99) Calcium Level 8.4 mg/dL (8.5-10.1) Total Bilirubin 0.6 mg/dL (0.2-1.0) Aspartate Amino Transf (AST/SGOT) 1374 U/L (15-37) Alanine Aminotransferase (ALT/SGPT) 925 U/L (14-59) Alkaline Phosphatase 66 U/L (46-116) Total Protein 7.0 g/dL (6.4-8.2) Albumin 2.4 g/dL (3.4-5.0) Albumin/Globulin Ratio 0.5 (1.0-1.7) O2 Saturation 93 % (92-99) Arterial Blood pH 7.15 (7.35-7.45) Arterial Blood pCO2 at Patient Temp 58 mmHg (35-46) Arterial Blood pO2 at Patient Temp 81 mmHg (65-108) Arterial Blood HCO3 20 mmol/L (21-28) Arterial Blood Base Excess -9 mmol/L (-3-3) FiO2 60 Medications Active Scripts Medications Dose Route/Sig Max Daily Dose Days Date Category Fish Oil 500 Mg Softgel (Alburtis-3/Dha/Epa/Fish Oil) 1 Each Capsule 1 Cap PO DAILY 30 08/11/21 Reported Vitamin C (Ascorbic Acid) 500 Mg Capsule.er 500 Mg PO DAILY 08/11/21 Reported Aspirin Ec (Aspirin) 81 Mg Tablet.dr 81 Mg PO DAILY08 08/10/21 Reported Benadryl (Diphenhydramine Hcl) 25 Mg Capsule 1 Cap PO QHS 30 08/10/21 Reported Tylenol Extra Strength (Acetaminophen) 500 Mg Tablet 500 Mg PO PRN Q4HRS PRN 08/10/21 Reported Impression . IMPRESSION: 1. Acute hypoxemic respiratory failure, multifactorial in etiology. 2. Abnormal chest x-ray with large left pleural effusion. Status post thoracentesis 3. Right upper lobe lesion, cavitary lesion possible malignancy 4. Chronic obstructive pulmonary disease with acute exacerbation. 5. Smoker. 6. COVID-19 testing +. 7. Hypertension. 8. Acute renal failure 9. Positive for SARS-CoV-2 possible COVID-19 viral pneumonia Plan . Updated 08/13 Family wishes to be aggressive with hemodialysis intubation if needed Oncology has been consulted, patient with a history of breast lump declined work-up in the past Follow up on thoracentesis analysis Empiric antibiotics Follow nephrology input As needed sedation Overall prognosis is poor, CCT 30 minutes discussed with RT and RN PLAN AND RECOMMENDATIONS: 1. Titrate FiO2 to keep O2 saturation 90%. 2. Solu-Medrol 40 mg IV every 8 hours. 3. Rocephin. 4. IR consulted to place a chest tube, send pleural fluid for pH cytology, cell count, LDH, total protein, glucose, AFB smear with culture, fungal smear with culture, Gram stain and culture. 5. repeat a CT of the chest after chest tube was placed. 6. Bronchodilator. 7. stop smoking forever. prognosis poor DARRICK BROWN MD Aug 13, 2021 08:58
--- NOTE | 2021-08-13 09:20 | PDOC ---
PROGRESS NOTES Date of Service: DATE: 08/13/21 TIME: 09:15 Subjective Subjective Pt moved to ICU, on BIPAP Objective Objective Vital Signs Date Time Temp Pulse Resp B/P (MAP) Pulse Ox O2 Delivery O2 Flow Rate FiO2 08/13/21 08:14 98 BiPAP/CPAP 08/13/21 08:00 97.3 114 118/60 (79) 97.3 08/13/21 06:00 20 08/13/21 04:00 15.0 Intake and Output 08/13/21 07:00 Intake Total 830 ml Output Total 330 ml Balance 500 ml Intake Oral 0 ml IV Total 830 ml Output Urine Total 330 ml Physical Exam Abdomen: Soft Heart: Other (tachycardia) Extremities: No cyanosis General: moderate distress Lungs: Other (dec blood flow) Neck: No JVD Skin: No breakdown Diagnosis Problem List Problems Medical Problems: (1) COVID-19 Status: Acute (2) Mass of left lung Status: Acute (3) Pleural effusion, left Status: Acute (4) Respiratory failure with hypoxia Status: Acute Assessment Assessment 1. Large pleural effusion, most probably underlying lung cancer. 2. Some cavitary lesion in the right upper lobe. 3. COVID positive, only got 1 J and J a month ago. 4. Chronic obstructive pulmonary disease and smoker, 60-pack years. 5. Family says she had a breast lump and they did not want to pursue further investigations, that could be also maybe the source of malignant pleural effusion. PLAN: hypoxia with met acidosis Ac kidney failure,bun 120 cr 2.5, renal consult schocked liver LFT in 1000 range . large pleural effusion,needing chest tube. Ph 7.01. poor prognosis will consult oncology also. spoke with RN central line today.. Critical care 32 mts coordinating care. At this time, Pulmonary is consulted. Interventional Radiology is consulted. Needs a chest tube. Send fluid for cytology, cultures. In the meantime, broad-spectrum antibiotic, Rocephin and Solu-Medrol. Discussed with the patient's daughter. The patient's daughter expressed that she did not want much things done because of her age, refused treatment for breast lump in the past and they wanted to talk about themselves about code status. Check labs in a.m. Acute renal failure-BUN is 100, creatinine 1.9. Increase normal saline 200 cc/h. Consult Dr. Pope for nephrology evaluation and management. Recheck labs in a.m. Prognosis of this patient is very poor due to her multiple medical problems. Start DVT prophylaxis with subcu heparin. Plan Plan of Care Problems Medical Problems: (1) COVID-19 Status: Acute (2) Mass of left lung Status: Acute (3) Pleural effusion, left Status: Acute (4) Respiratory failure with hypoxia Status: Acute Comment Review of Relevant I have reviewed the following items ambrocio (where applicable) has been applied. Labs Laboratory Tests Test 08/12/21 11:34 08/12/21 12:09 08/12/21 17:09 08/13/21 00:05 Urine Collection Type Unknown Urine Color Yellow Urine Clarity Clear Urine pH 5.5 (<5.0-8.0) Urine Specific [place] 1.025 (1.000-1.030) Urine Protein Trace mg/dL (NEG-TRACE) Urine Glucose (UA) Negative mg/dL (NEG) Urine Ketones (Stick) Negative mg/dL (NEG) Urine Blood Small (NEG) Urine Nitrite Negative (NEG) Urine Bilirubin Negative (NEG) Urine Urobilinogen Dipstick 0.2 mg/dL (0.2 mg/dL) Urine Leukocyte Esterase Trace (NEG) Urine RBC 3-5 /HPF (0-2) Urine WBC 5-10 /HPF (0-4) Urine Squamous Epithelial Cells Many /LPF Urine Amorphous Sediment Present /HPF Urine Bacteria Moderate /HPF (0-FEW) Urine Hyaline Casts Occasional /HPF Glucose (Fingerstick) 159 mg/dL (70-99) 148 mg/dL (70-99) O2 Saturation 98 % (92-99) Arterial Blood pH 7.15 (7.35-7.45) Arterial Blood pCO2 at Patient Temp 59 mmHg (35-46) Arterial Blood pO2 at Patient Temp 141 mmHg (65-108) Arterial Blood HCO3 20 mmol/L (21-28) Arterial Blood Base Excess -9 mmol/L (-3-3) FiO2 100 18/6 18 100% Test 08/13/21 05:10 08/13/21 08:00 White Blood Count 17.8 x10^3/uL (4.0-11.0) Red Blood Count 3.71 x10^6/uL (3.50-5.40) Hemoglobin 9.8 g/dL (12.0-15.5) Hematocrit 33.3 % (36.0-47.0) Mean Corpuscular Volume 90 fL (79-100) Mean Corpuscular Hemoglobin 26 pg (25-35) Mean Corpuscular Hemoglobin Concent 29 g/dL (31-37) Red Cell Distribution Width 16.0 % (11.5-14.5) Platelet Count 265 x10^3/uL (140-400) Neutrophils (%) (Auto) 95 % (31-73) Lymphocytes (%) (Auto) 1 % (24-48) Monocytes (%) (Auto) 4 % (0-9) Eosinophils (%) (Auto) 0 % (0-3) Basophils (%) (Auto) 0 % (0-3) Neutrophils # (Auto) 16.9 x10^3/uL (1.8-7.7) Lymphocytes # (Auto) 0.1 x10^3/uL (1.0-4.8) Monocytes # (Auto) 0.8 x10^3/uL (0.0-1.1) Eosinophils # (Auto) 0.0 x10^3/uL (0.0-0.7) Basophils # (Auto) 0.0 x10^3/uL (0.0-0.2) Sodium Level 151 mmol/L (136-145) Potassium Level 5.7 mmol/L (3.5-5.1) Chloride Level 112 mmol/L (98-107) Carbon Dioxide Level 22 mmol/L (21-32) Anion Gap 17 (6-14) Blood Urea Nitrogen 118 mg/dL (7-20) Creatinine 2.5 mg/dL (0.6-1.0) Estimated GFR (Cockcroft-Gault) 22.3 BUN/Creatinine Ratio 47 (6-20) Glucose Level 134 mg/dL (70-99) Calcium Level 8.4 mg/dL (8.5-10.1) Total Bilirubin 0.6 mg/dL (0.2-1.0) Aspartate Amino Transf (AST/SGOT) 1374 U/L (15-37) Alanine Aminotransferase (ALT/SGPT) 925 U/L (14-59) Alkaline Phosphatase 66 U/L (46-116) Total Protein 7.0 g/dL (6.4-8.2) Albumin 2.4 g/dL (3.4-5.0) Albumin/Globulin Ratio 0.5 (1.0-1.7) O2 Saturation 93 % (92-99) Arterial Blood pH 7.15 (7.35-7.45) Arterial Blood pCO2 at Patient Temp 58 mmHg (35-46) Arterial Blood pO2 at Patient Temp 81 mmHg (65-108) Arterial Blood HCO3 20 mmol/L (21-28) Arterial Blood Base Excess -9 mmol/L (-3-3) FiO2 60 Microbiology 08/10/21 Blood Culture - Preliminary, Resulted NO GROWTH AFTER 2 DAYS Medications Current Medications Atropine Sulfate (ATROPINE 0.5mg SYRINGE) 0.5 mg PRN Q5MIN PRN IV SEE COMMENTS; Start 08/12/21 at 22:30 Dexmedetomidine HCl 400 mcg/ Sodium Chloride 100 ml @ 2.345 mls/ hr CONT PRN IV PER PROTOCOL; Start 08/12/21 at 22:30 Heparin Sodium (Porcine) (Heparin Sodium) 5,000 unit Q12HR SQ Last administered on 08/12/21at 21:36; Start 08/12/21 at 11:00 Insulin Human Lispro (HumaLOG) 0-8 UNITS TIDBFRMEAL SQ ; Start 08/12/21 at 11:30 Sodium Chloride 500 ml @ 500 mls/hr 1X PRN PRN IV SEE COMMENTS; Start 08/12/21 at 22:30 Vitals/I & O Vital Sign - Last 24 Hours 08/12/21 08/12/21 08/12/21 08/12/21 11:00 15:00 18:43 19:50 Temp 98.3 98.0 96.2 98.3 98.0 96.2 Pulse 120 122 120 Resp 19 20 20 B/P (MAP) 148/71 (96) 144/66 (92) 125/62 (83) Pulse Ox 92 92 97 O2 Delivery Nasal Cannula Nasal Cannula Nasal Cannula Nasal Cannula O2 Flow Rate 3.0 3.0 4.0 3.0 08/12/21 08/12/21 08/12/21 08/12/21 20:10 20:26 21:00 21:10 Temp 97.5 97.5 Pulse 120 Resp 22 B/P (MAP) O2 Delivery Non-Rebreather Bag Valve Mask BiPAP/CPAP BiPAP/CPAP O2 Flow Rate 15.0 15.0 08/12/21 08/12/21 08/12/21 08/12/21 21:15 21:15 21:30 22:00 Pulse 122 118 121 Resp B/P (MAP) 82/52 (62) 99/51 (67) 115/56 (75) O2 Delivery BiPAP/CPAP Bi-pap BiPAP/CPAP BiPAP/CPAP 08/12/21 08/13/21 08/13/21 08/13/21 23:00 00:00 00:00 00:20 Temp 97.3 97.3 Pulse 119 115 Resp B/P (MAP) 117/54 (75) 118/55 (76) Pulse Ox 95 100 95 O2 Delivery BiPAP/CPAP BiPAP/CPAP BiPAP/CPAP O2 Flow Rate 15.0 08/13/21 08/13/21 08/13/21 08/13/21 01:00 02:00 03:00 03:45 Pulse 117 116 122 Resp B/P (MAP) 104/59 (74) 115/63 (80) 114/74 (87) Pulse Ox 100 98 98 96 O2 Delivery BiPAP/CPAP BiPAP/CPAP BiPAP/CPAP BiPAP/CPAP 08/13/21 08/13/21 08/13/21 08/13/21 04:00 04:00 05:00 06:00 Temp 97.5 97.5 Pulse 118 118 118 Resp B/P (MAP) 123/67 (85) 116/57 (76) 124/64 (84) Pulse Ox 98 97 97 O2 Delivery BiPAP/CPAP BiPAP/CPAP BiPAP/CPAP O2 Flow Rate 15.0 08/13/21 08/13/21 08/13/21 07:00 08:00 08:14 Temp 97.3 97.3 Pulse 116 114 B/P (MAP) 101/76 (84) 118/60 (79) Pulse Ox 94 86 98 O2 Delivery BiPAP/CPAP BiPAP/CPAP BiPAP/CPAP Intake and Output 08/12/21 08/12/21 08/13/21 15:00 23:00 07:00 Intake Total 0 ml 0 ml 830 ml Output Total 150 ml 180 ml Balance 0 ml -150 ml 650 ml Justifications for Admission Other Justification ODETTE MILIAN MD Aug 13, 2021 09:20
--- NOTE | 2021-08-13 11:38 | PDOC ---
Renal-Progress Notes Subjective Notes Notes NONE ON THE VENT History of Present Illness Hx of present illness ON THE VENT Vitals Vitals Vital Signs Date Time Temp Pulse Resp B/P (MAP) Pulse Ox O2 Delivery O2 Flow Rate FiO2 08/13/21 08:14 98 BiPAP/CPAP 08/13/21 08:00 97.3 114 118/60 (79) 97.3 08/13/21 06:00 20 08/13/21 04:00 15.0 Weight Weight [ ] I.O. Intake and Output Intake and Output 08/13/21 07:00 Intake Total 830 ml Output Total 330 ml Balance 500 ml Intake Oral 0 ml IV Total 830 ml Output Urine Total 330 ml Labs Labs Laboratory Tests Test 08/12/21 11:34 08/12/21 12:09 08/12/21 17:09 08/13/21 00:05 Urine Collection Type Unknown Urine Color Yellow Urine Clarity Clear Urine pH 5.5 (<5.0-8.0) Urine Specific [place] 1.025 (1.000-1.030) Urine Protein Trace mg/dL (NEG-TRACE) Urine Glucose (UA) Negative mg/dL (NEG) Urine Ketones (Stick) Negative mg/dL (NEG) Urine Blood Small (NEG) Urine Nitrite Negative (NEG) Urine Bilirubin Negative (NEG) Urine Urobilinogen Dipstick 0.2 mg/dL (0.2 mg/dL) Urine Leukocyte Esterase Trace (NEG) Urine RBC 3-5 /HPF (0-2) Urine WBC 5-10 /HPF (0-4) Urine Squamous Epithelial Cells Many /LPF Urine Amorphous Sediment Present /HPF Urine Bacteria Moderate /HPF (0-FEW) Urine Hyaline Casts Occasional /HPF Glucose (Fingerstick) 159 mg/dL (70-99) 148 mg/dL (70-99) O2 Saturation 98 % (92-99) Arterial Blood pH 7.15 (7.35-7.45) Arterial Blood pCO2 at Patient Temp 59 mmHg (35-46) Arterial Blood pO2 at Patient Temp 141 mmHg (65-108) Arterial Blood HCO3 20 mmol/L (21-28) Arterial Blood Base Excess -9 mmol/L (-3-3) FiO2 100 18/6 18 100% Test 08/13/21 05:10 08/13/21 08:00 White Blood Count 17.8 x10^3/uL (4.0-11.0) Red Blood Count 3.71 x10^6/uL (3.50-5.40) Hemoglobin 9.8 g/dL (12.0-15.5) Hematocrit 33.3 % (36.0-47.0) Mean Corpuscular Volume 90 fL (79-100) Mean Corpuscular Hemoglobin 26 pg (25-35) Mean Corpuscular Hemoglobin Concent 29 g/dL (31-37) Red Cell Distribution Width 16.0 % (11.5-14.5) Platelet Count 265 x10^3/uL (140-400) Neutrophils (%) (Auto) 95 % (31-73) Lymphocytes (%) (Auto) 1 % (24-48) Monocytes (%) (Auto) 4 % (0-9) Eosinophils (%) (Auto) 0 % (0-3) Basophils (%) (Auto) 0 % (0-3) Neutrophils # (Auto) 16.9 x10^3/uL (1.8-7.7) Lymphocytes # (Auto) 0.1 x10^3/uL (1.0-4.8) Monocytes # (Auto) 0.8 x10^3/uL (0.0-1.1) Eosinophils # (Auto) 0.0 x10^3/uL (0.0-0.7) Basophils # (Auto) 0.0 x10^3/uL (0.0-0.2) Sodium Level 151 mmol/L (136-145) Potassium Level 5.7 mmol/L (3.5-5.1) Chloride Level 112 mmol/L (98-107) Carbon Dioxide Level 22 mmol/L (21-32) Anion Gap 17 (6-14) Blood Urea Nitrogen 118 mg/dL (7-20) Creatinine 2.5 mg/dL (0.6-1.0) Estimated GFR (Cockcroft-Gault) 22.3 BUN/Creatinine Ratio 47 (6-20) Glucose Level 134 mg/dL (70-99) Calcium Level 8.4 mg/dL (8.5-10.1) Total Bilirubin 0.6 mg/dL (0.2-1.0) Aspartate Amino Transf (AST/SGOT) 1374 U/L (15-37) Alanine Aminotransferase (ALT/SGPT) 925 U/L (14-59) Alkaline Phosphatase 66 U/L (46-116) Total Protein 7.0 g/dL (6.4-8.2) Albumin 2.4 g/dL (3.4-5.0) Albumin/Globulin Ratio 0.5 (1.0-1.7) O2 Saturation 93 % (92-99) Arterial Blood pH 7.15 (7.35-7.45) Arterial Blood pCO2 at Patient Temp 58 mmHg (35-46) Arterial Blood pO2 at Patient Temp 81 mmHg (65-108) Arterial Blood HCO3 20 mmol/L (21-28) Arterial Blood Base Excess -9 mmol/L (-3-3) FiO2 60 Micro Micro Microbiology 08/10/21 Blood Culture - Preliminary, Resulted NO GROWTH AFTER 2 DAYS Review of Systems Constitutional: yes: unresponsive Physical Exam General Appearance: no apparent distress Skin: warm Respiratory: decreased breath sounds, other (NO AIR FLOW LEFT SIDE) Heart: S1S2 Abdomen: bowel sounds present Genitourinary: bladder flat Extremities: pulses present, atrophy Neurology: other (SEDATED) Assessment Assessment IMP [id number] HYPERKALEMIA HYPERNATREMIA MET AND RESP ACIDOSIS ACUTE HYPOXIC RESP FAILURE LARGE LEFT PLEURAL EFFUSION RIGHT UPPER LOVER CAVITARY LESION COPD WITH AECOPD COVID 19 POS ELEVATED LFT'S LEUCOCYTOSIS-DEMARGINATION MOST LIKELY PLAN VENT SUPPORT INCREASE MV IF POSSIBLE HCO3 GTT ANTIBIOTICS NEEDS THORACENTESIS PROGNOSIS VERY POOR D/W DAUGHTER THE NEED FOR HD IF TO CONTINUE WITH AGGRESSIVE CARE RECOMMENDED TO DAUGHTER YANG WITHDRAWAL OF CARE AND NO DIALYSIS SHE IS PLANNING ON D/W HER SIBLINGS AND WILL GET BACK TO [place] SEAN MARTINS MD Aug 13, 2021 11:38
[2021-08-13] MEDS ORDERED: SODIUM BICARBONATE VIAL 150 MEQ in IV DEXTROSE 5% 1,000 ML IV ONE (12:00)
[2021-08-13] MEDS: cefTRIAXone IV Push 1 GM VIAL. IVP SCH (12:34)
[2021-08-13] MEDS: HEPARIN for SUB-Q USE 5,000 UNIT/ML VIAL. SQ SCH ×2 (12:35→21:35)
[2021-08-13] MEDS ORDERED: DIALYSIS PATIENT. MC PRN (12:45)
[2021-08-13] MEDS ORDERED: HEPARIN for IV BOLUS 10,000 UNIT/10 ML VIAL. ONE (13:18)
--- NOTE | 2021-08-13 15:13 | RAD ---
Portable chest x-ray compared to similar exam dated 08/12/2021 for status post line placement. FINDINGS: There is a new left basilar chest tube. There is partial reexpansion of left lung, though l arge pleural effusion remains. New patchy perihilar and right lower lung infiltrates. Right IJ centra l line and temporary hemodialysis catheters are both new and appropriately positioned suitable for us e. Dense atherosclerotic calcification of the aorta. Osteopenia. IMPRESSION: 1. Large left pleural effusion with interval placement of chest tube and partial reexpansion of the l hugo. 2. New perihilar and right lower lobe parenchymal infiltrates. 3. Right IJ central line and temporary hemodialysis catheters appropriately positioned suitable for u se. Electronically signed by: Sushant Taylor MD (08/13/2021 3:10 PM) [id number]
--- NOTE | 2021-08-13 15:16 | RAD ---
Procedure: Ultrasound-guided right IJ temporary hemodialysis catheter placement, ultrasound-guided ri ght IJ central line placement, and ultrasound-guided left chest tube placement. Clinical Indication: covid positive, large left pleural effusion Sedation: None Antibiotics: None Sterility: All elements of maximal sterile barrier technique including the use of a cap, mask, steril e gown, sterile gloves, large sterile sheet, appropriate hand hygiene, and 2% chlorhexidine for cutan eous antisepsis (or acceptable alternative antiseptic per current guidelines) were followed for this procedure. Consent: The procedure was explained in its entirety to the patient or the patients designated repres entative by a member of the treatment team, including a discussion of the risks, benefits and commonl y accepted alternatives to the procedure, as well as the expected consequences of not performing the procedure. Discussion of the risks included, but was not limited to, those that are most frequent an d those that are rare but possibly severe or life-threatening, as well as the possibility of unforese en complications. Time Out: Immediately prior to initiation a procedural pause was conducted in the presence of the mem bers of the treatment team to verify correct patient identity, correct procedure, correct side if richard licable, correct patient position, availability of specialized equipment, review of patients allergie s, and assessment of current level of consciousness and arousability. Technique and Findings: Following informed consent, the patient was prepped and draped in usual steri le fashion. Ultrasound interrogation of the right neck revealed patency and compressibility of the ri ght internal jugular vein. A hardcopy ultrasound image was recorded as a 21-gauge micropuncture needl e was used to gain access to this vein. The needle was exchanged over wire for a 20 cm temporary hemo dialysis catheter. Manual flow rates were assessed and found be excellent. Both lumens were flushed, packed with heparin, capped, and the catheter was sutured the skin. Ultrasound interrogation of the r ight neck above the level of the temporary hemodialysis catheter was then performed and demonstrated patency and compressibility of this high internal jugular vein. A hardcopy ultrasound image was recor ded once again as a 21-gauge micropuncture needle was used to gain access to this vein in any locatio n. The needle was exchanged over wire for a triple lumen central line. All 3 lm flush and aspirated w ith ease. This catheter was sutured the skin and capped. Attention was then turned to the left chest wall, which was prepped and draped in usual sterile fashi on. Ultrasound interrogation revealed a large left pleural effusion. 1 percent lidocaine was used to achieve local anesthesia. A hardcopy ultrasound image was recorded as an 18-gauge sheath needle was a dvanced into the pleural space. The sheath was exchanged over wire for a 14 Kinyarwanda pigtail drainage c atheter which was sutured the skin and placed to Pleur-evac drainage. Specimen of 80 cc of maday bloo d was sent for microbiologic analysis. Complications: No immediate Impression: 1. Ultrasound-guided right temporal hemodialysis catheter placement. 2. Ultrasound-guided right IJ central line placement. 3. Ultrasound-guided left chest tube placement. Electronically signed by: Sushant Taylor MD (08/13/2021 3:14 PM) [id number]
[2021-08-13] MEDS ORDERED: ALBUMIN HUMAN 25% 100 ML IV ONE (15:30)
--- NOTE | 2021-08-13 16:04 | NUR ---
SS following for discharge planning. SS reviewed pt chart and discussed with pt RN. Pt is from home and is currently on the BIPAP at 60%. COVID19 positive. Pt on Levophed and Bicarb drip. Pt on IV Rocephin and IV Solu-Medrol. Chest tube in place. Pt's family wanting full aggressive care. Pt had dialysis cath placed today. Hemodialysis today. Not stable. SS will continue to follow for discharge planning.
[2021-08-13] MEDS ORDERED: IV NORMAL SALINE 500ML BAG 500 ML IV PRN (16:15)
[2021-08-13] MEDS ORDERED: ATROPINE 0.5 MG/5 ML DISP.SYRINGE. IV PRN (16:15)
--- NOTE | 2021-08-13 19:44 | NUR ---
[id number] Conversation w daughter Arlene -patient status. Permission for chest tube placement and placement of TLC obtained. Patient w periods of restlessness alternating w periods sleep. Dr Pope in -spoke to daughter ;guarded prognosis. Informed of renal Fx; dialysis as option . Daughter to call back "after family discussion.". Decision to do everything including CPR,intubation as well as dialysis. IR informed of additional line placement as well as family decision for dialysis.Dr Pope informed RN of pending 3 H run.. Low dose levo started at beginning of dialysis. 0.2 Kg removal only. Communication w 3 different family members concerning status. Calmer after start low dose precedex. HR slowed to 90s around 1800 tonight from 110-118. Sat improved. Continue POC
[2021-08-13 20:29] LABS: BF CLARITY TURBID; BF COLOR RED; BF SOURCE PLEURAL
[2021-08-13 20:30] LABS: BF RBC COUNT 427301 /cmm (Not Established); BF WBC COUNT 1399 /cmm (Not Established)
[2021-08-13 20:31] LABS: BF MON % 20 %; BF PMN % 36 %
[2021-08-13 20:38] LABS: BF OTHER % 44 %
[2021-08-14] VITALS (31 sets, daily range): BP systolic 76–163; BP diastolic 44–85
[2021-08-14] MEDS: NOREPINEPHRINE VIAL 8 MG in IV DEXTROSE 5% 250 ML IV PRN (02:27)
[2021-08-14] MEDS: DEXMEDETOMIDINE 400 MCG in IV NORMAL SALINE 100ML 96 ML IV PRN (02:28)
[2021-08-14] MEDS: methylPREDNISolone SOD SUCC PF 40 MG/ML VIAL. IV SCH ×3 (05:39→21:48)
[2021-08-14 06:01] LABS: BASO # 0.1 x10^3/uL (0.0-0.2); BASO % 0 % (0-3); EOS % 0 % (0-3); HEMATOCRIT 23.6 % (36.0-47.0); HEMOGLOBIN 7.4 g/dL (12.0-15.5); LYMPH # 0.1 x10^3/uL (1.0-4.8); LYMPH % 0 % (24-48); MEAN CORPUSCULAR HEMOGLOBIN 26 pg (25-35); MEAN CORPUSCULAR HGB CONC 31 g/dL (31-37); MEAN CORPUSCULAR VOLUME 83 fL (79-100); MONO # 0.4 x10^3/uL (0.0-1.1); MONO % 3 % (0-9); NEUT # 12.5 x10^3/uL (1.8-7.7); NEUT % 96 % (31-73); PLATELET COUNT 129 x10^3/uL (140-400); RED BLOOD COUNT 2.85 x10^6/uL (3.50-5.40); RED CELL DISTRIBUTION WIDTH 15.3 % (11.5-14.5)
[2021-08-14 06:17] LABS: CALCIUM 7.3 mg/dL (8.5-10.1); CREATININE 1.8 mg/dL (0.6-1.0); GFR 32.5; MAGNESIUM 2.4 mg/dL (1.8-2.4); PHOSPHORUS 4.7 mg/dL (2.6-4.7); POTASSIUM 4.2 mmol/L (3.5-5.1)
[2021-08-14] MEDS: INSULIN LISPRO 300 UNITS/3 ML VIAL. SQ SCH ×3 (07:30→16:30)
[2021-08-14 08:20] LABS: BASE EXCESS ABG 10 mmol/L (-3-3); HCO3 ABG 37 mmol/L (21-28); PO2 ABG 142 mmHg (65-108); SAT O2 ABG 98 % (92-99)
[2021-08-14 08:43] LABS: PCO2 ABG 68 mmHg (35-46)
[2021-08-14 08:44] LABS: FIO2 ABG 60% 18/6 R 24
--- NOTE | 2021-08-14 09:39 | PDOC ---
PROGRESS NOTES Date of Service: DATE: 08/14/21 TIME: 09:39 Subjective Subjective seen in ICU, on BIPAP Objective Objective Vital Signs Date Time Temp Pulse Resp B/P (MAP) Pulse Ox O2 Delivery O2 Flow Rate FiO2 08/14/21 07:28 100 BiPAP/CPAP 08/14/21 06:00 76 23 104/55 (71) 08/14/21 04:00 98.2 98.2 Intake and Output 08/14/21 07:00 Intake Total 1278 ml Output Total 3050 ml Balance -1772 ml Intake Oral 0 ml IV Total 1278 ml Output Urine Total 1050 ml Chest Tube Drainage Total 2000 ml Physical Exam Abdomen: Soft Heart: Other (tachycardia) Extremities: No cyanosis General: moderate distress Lungs: Other (dec blood flow) Neck: No JVD Skin: No breakdown COMMENT golf ball seize rt breast lump,?cancer Diagnosis Problem List Problems Medical Problems: (1) COVID-19 Status: Acute (2) Mass of left lung Status: Acute (3) Pleural effusion, left Status: Acute (4) Respiratory failure with hypoxia Status: Acute Assessment Assessment 1. Large pleural effusion, most probably underlying lung cancer. 2. Some cavitary lesion in the right upper lobe. 3. COVID positive, only got 1 J and J a month ago. 4. Chronic obstructive pulmonary disease and smoker, 60-pack years. 5. Family says she had a breast lump and they did not want to pursue further investigations, that could be also maybe the source of malignant pleural effusion. PLAN:spoke with pts daughter,wishes DNR hypoxia with met acidosis on BIPAP Ac kidney failure ,started on emergency dialysis schocked liver LFT in 1000 range . large pleural effusion, left chest tube.2L drianed spoke with Pulmonary poor prognosis will consult oncology also. spoke with RN central line placed. Critical care 30 mts coordinating care. At this time, Pulmonary is consulted. Interventional Radiology is consulted. Needs a chest tube. Send fluid for cytology, cultures. In the meantime, broad-spectrum antibiotic, Rocephin and Solu-Medrol. Discussed with the patient's daughter. The patient's daughter expressed that she did not want much things done because of her age, refused treatment for breast lump in the past and they wanted to talk about themselves about code status. Check labs in a.m. Acute renal failure-BUN is 100, creatinine 1.9. Increase normal saline 200 cc/h. Consult Dr. Pope for nephrology evaluation and management. Recheck labs in a.m. Prognosis of this patient is very poor due to her multiple medical problems. Start DVT prophylaxis with subcu heparin. Plan Plan of Care Problems Medical Problems: (1) COVID-19 Status: Acute (2) Mass of left lung Status: Acute (3) Pleural effusion, left Status: Acute (4) Respiratory failure with hypoxia Status: Acute Comment Review of Relevant I have reviewed the following items ambrocio (where applicable) has been applied. Labs Laboratory Tests Test 08/13/21 14:45 08/13/21 17:03 08/14/21 05:40 08/14/21 08:10 Body Fluid Source Pleural Body Fluid Color Red Body Fluid Clarity Turbid Body Fluid pH 6.97 Body Fluid Nucleated Cells 1399 /cmm (Not Established) Body Fluid Mononuclear WBCs (%) 20 % Body Fluid Polymorphonuclear Cells 36 % Body Fluid Total RBCs Counted 547160 /cmm (Not Body Fluid Other Cells (%) 44 % Glucose (Fingerstick) 120 mg/dL (70-99) White Blood Count 13.0 x10^3/uL (4.0-11.0) Red Blood Count 2.85 x10^6/uL (3.50-5.40) Hemoglobin 7.4 g/dL (12.0-15.5) Hematocrit 23.6 % (36.0-47.0) Mean Corpuscular Volume 83 fL (79-100) Mean Corpuscular Hemoglobin 26 pg (25-35) Mean Corpuscular Hemoglobin Concent 31 g/dL (31-37) Red Cell Distribution Width 15.3 % (11.5-14.5) Platelet Count 129 x10^3/uL (140-400) Neutrophils (%) (Auto) 96 % (31-73) Lymphocytes (%) (Auto) 0 % (24-48) Monocytes (%) (Auto) 3 % (0-9) Eosinophils (%) (Auto) 0 % (0-3) Basophils (%) (Auto) 0 % (0-3) Neutrophils # (Auto) 12.5 x10^3/uL (1.8-7.7) Lymphocytes # (Auto) 0.1 x10^3/uL (1.0-4.8) Monocytes # (Auto) 0.4 x10^3/uL (0.0-1.1) Eosinophils # (Auto) 0.0 x10^3/uL (0.0-0.7) Basophils # (Auto) 0.1 x10^3/uL (0.0-0.2) Sodium Level 137 mmol/L (136-145) Potassium Level 4.2 mmol/L (3.5-5.1) Chloride Level 97 mmol/L (98-107) Carbon Dioxide Level 37 mmol/L (21-32) Anion Gap 3 (6-14) Blood Urea Nitrogen 57 mg/dL (7-20) Creatinine 1.8 mg/dL (0.6-1.0) Estimated GFR (Cockcroft-Gault) 32.5 Glucose Level 206 mg/dL (70-99) Calcium Level 7.3 mg/dL (8.5-10.1) Phosphorus Level 4.7 mg/dL (2.6-4.7) Magnesium Level 2.4 mg/dL (1.8-2.4) O2 Saturation 98 % (92-99) Arterial Blood pH 7.36 (7.35-7.45) Arterial Blood pCO2 at Patient Temp 68 mmHg (35-46) Arterial Blood pO2 at Patient Temp 142 mmHg (65-108) Arterial Blood HCO3 37 mmol/L (21-28) Arterial Blood Base Excess 10 mmol/L (-3-3) FiO2 60% 18/6 r 24 Test 08/14/21 08:33 Glucose (Fingerstick) 174 mg/dL (70-99) Microbiology 08/12/21 Urine Culture - Final, Complete 08/10/21 Blood Culture - Preliminary, Resulted NO GROWTH AFTER 3 DAYS Medications Current Medications Albumin Human 100 ml @ 0 mls/hr PRN Q1HR ONCE IV Last administered on 08/13/21at 16:05; Start 08/13/21 at 15:30; Stop 08/13/21 at 15:33; Status DC Atropine Sulfate (ATROPINE 0.5mg SYRINGE) 0.5 mg PRN Q5MIN PRN IV SEE COMMENTS; Start 08/13/21 at 16:15 Dexmedetomidine HCl 400 mcg/ Sodium Chloride 100 ml @ 2.29 mls/hr CONT PRN IV PER PROTOCOL Last administered on 08/14/21at 02:28; Start 08/13/21 at 16:15 Heparin Sodium (Porcine) (Heparin Sodium) 2,500 unit 1X ONCE INT CAT Last administered on 08/13/21at 15:12; Start 08/13/21 at 15:00; Stop 08/13/21 at 15:01; Status DC Heparin Sodium (Porcine) (Heparin Sodium) 10,000 unit STK-MED ONCE .ROUTE ; Start 08/13/21 at 13:18; Stop 08/13/21 at 13:18; Status DC Info (PHARMACY MONITORING -- do not chart) 1 each PRN DAILY PRN MC SEE COMMENTS; Start 08/13/21 at 12:45 Norepinephrine Bitartrate 8 mg/ Dextrose 258 ml @ 8.862 mls/ hr CONT PRN IV PER PROTOCOL Last administered on 08/14/21at 02:27; Start 08/13/21 at 15:30 Sodium Bicarbonate 150 meq/Dextrose 1,150 ml @ 100 mls/hr 1X ONCE IV Last administered on 08/13/21at 12:35; Start 08/13/21 at 12:00; Stop 08/13/21 at 23:29; Status DC Sodium Chloride 500 ml @ 500 mls/hr 1X PRN PRN IV SEE COMMENTS; Start 08/13/21 at 16:15 Vitals/I & O Vital Sign - Last 24 Hours 08/13/21 08/13/21 08/13/21 08/13/21 10:00 11:00 12:00 12:24 Temp 98.0 98.0 Pulse 112 112 110 Resp 24 26 25 B/P (MAP) 123/60 (81) 129/52 (77) 117/62 (80) Pulse Ox 92 92 93 97 O2 Delivery BiPAP/CPAP BiPAP/CPAP BiPAP/CPAP BiPAP/CPAP 08/13/21 08/13/21 08/13/21 08/13/21 13:00 13:53 14:00 15:00 Pulse 108 106 104 Resp 26 B/P (MAP) 149/54 (85) 133/54 (80) 134/48 (76) Pulse Ox 99 92 93 93 O2 Delivery BiPAP/CPAP BiPAP/CPAP BiPAP/CPAP BiPAP/CPAP 08/13/21 08/13/21 08/13/21 08/13/21 15:45 16:00 17:10 18:00 Temp 98.1 98.1 Pulse 116 103 Resp 20 B/P (MAP) 134/103 (113) 94/51 (65) 112/56 (74) Pulse Ox 95 100 100 100 O2 Delivery BiPAP/CPAP BiPAP/CPAP BiPAP/CPAP BiPAP/CPAP 08/13/21 08/13/21 08/13/21 08/13/21 19:00 20:00 20:00 20:00 Temp 98.2 98.2 Pulse 94 98 Resp 16 18 B/P (MAP) 112/58 (76) 103/49 (67) Pulse Ox 100 100 100 O2 Delivery BiPAP/CPAP BiPAP/CPAP BiPAP/CPAP Bi-pap 08/13/21 08/13/21 08/13/21 08/14/21 21:00 22:00 23:00 00:00 Temp 98.5 98.5 Pulse 90 92 86 98 Resp 16 18 20 18 B/P (MAP) 101/59 (73) 100/48 (65) 103/50 (67) 103/49 (67) Pulse Ox 100 99 99 100 O2 Delivery BiPAP/CPAP BiPAP/CPAP BiPAP/CPAP BiPAP/CPAP 08/14/21 08/14/21 08/14/21 08/14/21 00:00 01:00 02:00 03:00 Pulse 83 87 87 Resp 20 24 24 B/P (MAP) 119/56 (77) 120/53 (75) 120/54 (76) Pulse Ox 100 99 100 99 O2 Delivery BiPAP/CPAP BiPAP/CPAP BiPAP/CPAP BiPAP/CPAP 08/14/21 08/14/21 08/14/21 08/14/21 04:00 04:00 05:00 06:00 Temp 98.2 98.2 Pulse 87 78 76 Resp 24 23 23 B/P (MAP) 128/58 (81) 116/54 (74) 104/55 (71) Pulse Ox 100 99 100 100 O2 Delivery BiPAP/CPAP BiPAP/CPAP BiPAP/CPAP BiPAP/CPAP 08/14/21 07:28 Pulse Ox 100 O2 Delivery BiPAP/CPAP Intake and Output 08/13/21 08/13/21 08/14/21 15:00 23:00 07:00 Intake Total 549 ml 503 ml 226 ml Output Total 2550 ml 300 ml 200 ml Balance -2001 ml 203 ml 26 ml Justifications for Admission Other Justification Nutrition Consultation Dietary Evaluation: Recommendations by RD: Dietary education by RD, Increase Calorie Intake, Protein supplementation Comments: REC regular diet sending Nepro oral nutrition supplements Expected Outcomes/Goals: improved po intake Malnutrition Findings: Muscle Mass (Severe): Severe Depletion Body Fat Depletion (Non Severe: Mod to Severe Weight Status: Underweight ODETTE MILIAN MD Aug 14, 2021 09:39
--- NOTE | 2021-08-14 10:22 | PDOC ---
PULMONARY PROGRESS NOTES DATE: 08/14/21 TIME: 10:18 Subjective Patient currently on BiPAP. 60% FiO2. Low-dose Levophed. Left chest tube placement Vitals Vital Signs Date Time Temp Pulse Resp B/P (MAP) Pulse Ox O2 Delivery O2 Flow Rate FiO2 08/14/21 07:28 100 BiPAP/CPAP 08/14/21 06:00 76 23 104/55 (71) 08/14/21 04:00 98.2 98.2 Comments Unable to obtain, currently on BiPAP Cardiovascular: S1, S2 Abdomen: Soft Extremities: Other (Edema) Skin: Warm Labs Laboratory Tests Test 08/12/21 11:34 08/12/21 12:09 08/12/21 17:09 08/13/21 00:05 Urine Collection Type Unknown Urine Color Yellow Urine Clarity Clear Urine pH 5.5 (<5.0-8.0) Urine Specific [place] 1.025 (1.000-1.030) Urine Protein Trace mg/dL (NEG-TRACE) Urine Glucose (UA) Negative mg/dL (NEG) Urine Ketones (Stick) Negative mg/dL (NEG) Urine Blood Small (NEG) Urine Nitrite Negative (NEG) Urine Bilirubin Negative (NEG) Urine Urobilinogen Dipstick 0.2 mg/dL (0.2 mg/dL) Urine Leukocyte Esterase Trace (NEG) Urine RBC 3-5 /HPF (0-2) Urine WBC 5-10 /HPF (0-4) Urine Squamous Epithelial Cells Many /LPF Urine Amorphous Sediment Present /HPF Urine Bacteria Moderate /HPF (0-FEW) Urine Hyaline Casts Occasional /HPF Glucose (Fingerstick) 159 mg/dL (70-99) 148 mg/dL (70-99) O2 Saturation 98 % (92-99) Arterial Blood pH 7.15 (7.35-7.45) Arterial Blood pCO2 at Patient Temp 59 mmHg (35-46) Arterial Blood pO2 at Patient Temp 141 mmHg (65-108) Arterial Blood HCO3 20 mmol/L (21-28) Arterial Blood Base Excess -9 mmol/L (-3-3) FiO2 100 18/6 18 100% Test 08/13/21 05:10 08/13/21 08:00 08/13/21 14:45 08/13/21 17:03 White Blood Count 17.8 x10^3/uL (4.0-11.0) Red Blood Count 3.71 x10^6/uL (3.50-5.40) Hemoglobin 9.8 g/dL (12.0-15.5) Hematocrit 33.3 % (36.0-47.0) Mean Corpuscular Volume 90 fL (79-100) Mean Corpuscular Hemoglobin 26 pg (25-35) Mean Corpuscular Hemoglobin Concent 29 g/dL (31-37) Red Cell Distribution Width 16.0 % (11.5-14.5) Platelet Count 265 x10^3/uL (140-400) Neutrophils (%) (Auto) 95 % (31-73) Lymphocytes (%) (Auto) 1 % (24-48) Monocytes (%) (Auto) 4 % (0-9) Eosinophils (%) (Auto) 0 % (0-3) Basophils (%) (Auto) 0 % (0-3) Neutrophils # (Auto) 16.9 x10^3/uL (1.8-7.7) Lymphocytes # (Auto) 0.1 x10^3/uL (1.0-4.8) Monocytes # (Auto) 0.8 x10^3/uL (0.0-1.1) Eosinophils # (Auto) 0.0 x10^3/uL (0.0-0.7) Basophils # (Auto) 0.0 x10^3/uL (0.0-0.2) Sodium Level 151 mmol/L (136-145) Potassium Level 5.7 mmol/L (3.5-5.1) Chloride Level 112 mmol/L (98-107) Carbon Dioxide Level 22 mmol/L (21-32) Anion Gap 17 (6-14) Blood Urea Nitrogen 118 mg/dL (7-20) Creatinine 2.5 mg/dL (0.6-1.0) Estimated GFR (Cockcroft-Gault) 22.3 BUN/Creatinine Ratio 47 (6-20) Glucose Level 134 mg/dL (70-99) Calcium Level 8.4 mg/dL (8.5-10.1) Total Bilirubin 0.6 mg/dL (0.2-1.0) Aspartate Amino Transf (AST/SGOT) 1374 U/L (15-37) Alanine Aminotransferase (ALT/SGPT) 925 U/L (14-59) Alkaline Phosphatase 66 U/L (46-116) Total Protein 7.0 g/dL (6.4-8.2) Albumin 2.4 g/dL (3.4-5.0) Albumin/Globulin Ratio 0.5 (1.0-1.7) Hepatitis B Surface Antigen Nonreactive (Nonreactive) Hepatitis B Surface Antibody Nonreactive O2 Saturation 93 % (92-99) Arterial Blood pH 7.15 (7.35-7.45) Arterial Blood pCO2 at Patient Temp 58 mmHg (35-46) Arterial Blood pO2 at Patient Temp 81 mmHg (65-108) Arterial Blood HCO3 20 mmol/L (21-28) Arterial Blood Base Excess -9 mmol/L (-3-3) FiO2 60 Body Fluid Source Pleural Body Fluid Color Red Body Fluid Clarity Turbid Body Fluid pH 6.97 Body Fluid Nucleated Cells 1399 /cmm (Not Established) Body Fluid Mononuclear WBCs (%) 20 % Body Fluid Polymorphonuclear Cells 36 % Body Fluid Total RBCs Counted 642338 /cmm (Not Body Fluid Other Cells (%) 44 % Glucose (Fingerstick) 120 mg/dL (70-99) Test 08/14/21 05:40 08/14/21 08:10 08/14/21 08:33 White Blood Count 13.0 x10^3/uL (4.0-11.0) Red Blood Count 2.85 x10^6/uL (3.50-5.40) Hemoglobin 7.4 g/dL (12.0-15.5) Hematocrit 23.6 % (36.0-47.0) Mean Corpuscular Volume 83 fL (79-100) Mean Corpuscular Hemoglobin 26 pg (25-35) Mean Corpuscular Hemoglobin Concent 31 g/dL (31-37) Red Cell Distribution Width 15.3 % (11.5-14.5) Platelet Count 129 x10^3/uL (140-400) Neutrophils (%) (Auto) 96 % (31-73) Lymphocytes (%) (Auto) 0 % (24-48) Monocytes (%) (Auto) 3 % (0-9) Eosinophils (%) (Auto) 0 % (0-3) Basophils (%) (Auto) 0 % (0-3) Neutrophils # (Auto) 12.5 x10^3/uL (1.8-7.7) Lymphocytes # (Auto) 0.1 x10^3/uL (1.0-4.8) Monocytes # (Auto) 0.4 x10^3/uL (0.0-1.1) Eosinophils # (Auto) 0.0 x10^3/uL (0.0-0.7) Basophils # (Auto) 0.1 x10^3/uL (0.0-0.2) Sodium Level 137 mmol/L (136-145) Potassium Level 4.2 mmol/L (3.5-5.1) Chloride Level 97 mmol/L (98-107) Carbon Dioxide Level 37 mmol/L (21-32) Anion Gap 3 (6-14) Blood Urea Nitrogen 57 mg/dL (7-20) Creatinine 1.8 mg/dL (0.6-1.0) Estimated GFR (Cockcroft-Gault) 32.5 Glucose Level 206 mg/dL (70-99) Calcium Level 7.3 mg/dL (8.5-10.1) Phosphorus Level 4.7 mg/dL (2.6-4.7) Magnesium Level 2.4 mg/dL (1.8-2.4) O2 Saturation 98 % (92-99) Arterial Blood pH 7.36 (7.35-7.45) Arterial Blood pCO2 at Patient Temp 68 mmHg (35-46) Arterial Blood pO2 at Patient Temp 142 mmHg (65-108) Arterial Blood HCO3 37 mmol/L (21-28) Arterial Blood Base Excess 10 mmol/L (-3-3) FiO2 60% 18/6 r 24 Glucose (Fingerstick) 174 mg/dL (70-99) Laboratory Tests Test 08/13/21 14:45 08/13/21 17:03 08/14/21 05:40 08/14/21 08:10 Body Fluid Source Pleural Body Fluid Color Red Body Fluid Clarity Turbid Body Fluid pH 6.97 Body Fluid Nucleated Cells 1399 /cmm (Not Established) Body Fluid Mononuclear WBCs (%) 20 % Body Fluid Polymorphonuclear Cells 36 % Body Fluid Total RBCs Counted 407493 /cmm (Not Body Fluid Other Cells (%) 44 % Glucose (Fingerstick) 120 mg/dL (70-99) White Blood Count 13.0 x10^3/uL (4.0-11.0) Red Blood Count 2.85 x10^6/uL (3.50-5.40) Hemoglobin 7.4 g/dL (12.0-15.5) Hematocrit 23.6 % (36.0-47.0) Mean Corpuscular Volume 83 fL (79-100) Mean Corpuscular Hemoglobin 26 pg (25-35) Mean Corpuscular Hemoglobin Concent 31 g/dL (31-37) Red Cell Distribution Width 15.3 % (11.5-14.5) Platelet Count 129 x10^3/uL (140-400) Neutrophils (%) (Auto) 96 % (31-73) Lymphocytes (%) (Auto) 0 % (24-48) Monocytes (%) (Auto) 3 % (0-9) Eosinophils (%) (Auto) 0 % (0-3) Basophils (%) (Auto) 0 % (0-3) Neutrophils # (Auto) 12.5 x10^3/uL (1.8-7.7) Lymphocytes # (Auto) 0.1 x10^3/uL (1.0-4.8) Monocytes # (Auto) 0.4 x10^3/uL (0.0-1.1) Eosinophils # (Auto) 0.0 x10^3/uL (0.0-0.7) Basophils # (Auto) 0.1 x10^3/uL (0.0-0.2) Sodium Level 137 mmol/L (136-145) Potassium Level 4.2 mmol/L (3.5-5.1) Chloride Level 97 mmol/L (98-107) Carbon Dioxide Level 37 mmol/L (21-32) Anion Gap 3 (6-14) Blood Urea Nitrogen 57 mg/dL (7-20) Creatinine 1.8 mg/dL (0.6-1.0) Estimated GFR (Cockcroft-Gault) 32.5 Glucose Level 206 mg/dL (70-99) Calcium Level 7.3 mg/dL (8.5-10.1) Phosphorus Level 4.7 mg/dL (2.6-4.7) Magnesium Level 2.4 mg/dL (1.8-2.4) O2 Saturation 98 % (92-99) Arterial Blood pH 7.36 (7.35-7.45) Arterial Blood pCO2 at Patient Temp 68 mmHg (35-46) Arterial Blood pO2 at Patient Temp 142 mmHg (65-108) Arterial Blood HCO3 37 mmol/L (21-28) Arterial Blood Base Excess 10 mmol/L (-3-3) FiO2 60% 18 r 24 Test 08/14/21 08:33 Glucose (Fingerstick) 174 mg/dL (70-99) Medications Active Scripts Medications Dose Route/Sig Max Daily Dose Days Date Category Fish Oil 500 Mg Softgel ([place]-3/Dha/Epa/Fish Oil) 1 Each Capsule 1 Cap PO DAILY 30 08/11/21 Reported Vitamin C (Ascorbic Acid) 500 Mg Capsule.er 500 Mg PO DAILY 08/11/21 Reported Aspirin Ec (Aspirin) 81 Mg Tablet.dr 81 Mg PO DAILY08 08/10/21 Reported Benadryl (Diphenhydramine Hcl) 25 Mg Capsule 1 Cap PO QHS 30 08/10/21 Reported Tylenol Extra Strength (Acetaminophen) 500 Mg Tablet 500 Mg PO PRN Q4HRS PRN 08/10/21 Reported Comments Chest x-ray reviewed 08/13/2021. Partially loculated left upper and left lower lobe effusions. Chest tube is in place. Impression . IMPRESSION: 1. Acute hypoxemic respiratory failure, multifactorial in etiology. 2. Abnormal chest x-ray with large left pleural effusion. Status post thoracentesis. Awaiting analysis especially cytology. 3. Right upper lobe lesion, cavitary lesion possible malignancy 4. Chronic obstructive pulmonary disease with acute exacerbation. 5. Smoker. 6. COVID-19 testing +. 7. Hypertension. 8. Acute renal failure 9. Positive for SARS-CoV-2 possible COVID-19 viral pneumonia 10. History of breast lump. Did not had any work-up in the past due to her refusal. Could be another source of primary malignancy if pleural effusion is malignant Plan . Updated 08/14/2021 Family wishes to be aggressive with hemodialysis intubation if needed Oncology has been consulted, patient with a history of breast lump declined work-up in the past Follow up on thoracentesis analysis. Continue chest tube to suction. Follow-up chest x-ray. Empiric antibiotics Follow nephrology input As needed Precedex. Overall prognosis is poor, CCT 30 minutes discussed with RT and RN Updated 08/13 Family wishes to be aggressive with hemodialysis intubation if needed Oncology has been consulted, patient with a history of breast lump declined work-up in the past Follow up on thoracentesis analysis Empiric antibiotics Follow nephrology input As needed sedation Overall prognosis is poor, CCT 30 minutes discussed with RT and RN PLAN AND RECOMMENDATIONS: 1. Titrate FiO2 to keep O2 saturation 90%. 2. Solu-Medrol 40 mg IV every 8 hours. 3. Rocephin. 4. IR consulted to place a chest tube, send pleural fluid for pH cytology, cell count, LDH, total protein, glucose, AFB smear with culture, fungal smear with culture, Gram stain and culture. 5. repeat a CT of the chest after chest tube was placed. 6. Bronchodilator. 7. stop smoking forever. prognosis poor LYNDSAY BOBO MD Aug 14, 2021 10:22
--- NOTE | 2021-08-14 11:24 | PDOC ---
Renal-Progress Notes Subjective Notes Notes NONE History of Present Illness Hx of present illness CONFUSED Vitals Vitals Vital Signs Date Time Temp Pulse Resp B/P (MAP) Pulse Ox O2 Delivery O2 Flow Rate FiO2 08/14/21 07:28 100 BiPAP/CPAP 08/14/21 06:00 76 23 104/55 (71) 08/14/21 04:00 98.2 98.2 Weight Weight [ ] I.O. Intake and Output Intake and Output 08/14/21 07:00 Intake Total 1278 ml Output Total 3050 ml Balance -1772 ml Intake Oral 0 ml IV Total 1278 ml Output Urine Total 1050 ml Chest Tube Drainage Total 2000 ml Labs Labs Laboratory Tests Test 08/13/21 14:45 08/13/21 17:03 08/14/21 05:40 08/14/21 08:10 Body Fluid Source Pleural Body Fluid Color Red Body Fluid Clarity Turbid Body Fluid pH 6.97 Body Fluid Nucleated Cells 1399 /cmm (Not Established) Body Fluid Mononuclear WBCs (%) 20 % Body Fluid Polymorphonuclear Cells 36 % Body Fluid Total RBCs Counted 118352 /cmm (Not Body Fluid Other Cells (%) 44 % Glucose (Fingerstick) 120 mg/dL (70-99) White Blood Count 13.0 x10^3/uL (4.0-11.0) Red Blood Count 2.85 x10^6/uL (3.50-5.40) Hemoglobin 7.4 g/dL (12.0-15.5) Hematocrit 23.6 % (36.0-47.0) Mean Corpuscular Volume 83 fL (79-100) Mean Corpuscular Hemoglobin 26 pg (25-35) Mean Corpuscular Hemoglobin Concent 31 g/dL (31-37) Red Cell Distribution Width 15.3 % (11.5-14.5) Platelet Count 129 x10^3/uL (140-400) Neutrophils (%) (Auto) 96 % (31-73) Lymphocytes (%) (Auto) 0 % (24-48) Monocytes (%) (Auto) 3 % (0-9) Eosinophils (%) (Auto) 0 % (0-3) Basophils (%) (Auto) 0 % (0-3) Neutrophils # (Auto) 12.5 x10^3/uL (1.8-7.7) Lymphocytes # (Auto) 0.1 x10^3/uL (1.0-4.8) Monocytes # (Auto) 0.4 x10^3/uL (0.0-1.1) Eosinophils # (Auto) 0.0 x10^3/uL (0.0-0.7) Basophils # (Auto) 0.1 x10^3/uL (0.0-0.2) Sodium Level 137 mmol/L (136-145) Potassium Level 4.2 mmol/L (3.5-5.1) Chloride Level 97 mmol/L (98-107) Carbon Dioxide Level 37 mmol/L (21-32) Anion Gap 3 (6-14) Blood Urea Nitrogen 57 mg/dL (7-20) Creatinine 1.8 mg/dL (0.6-1.0) Estimated GFR (Cockcroft-Gault) 32.5 Glucose Level 206 mg/dL (70-99) Calcium Level 7.3 mg/dL (8.5-10.1) Phosphorus Level 4.7 mg/dL (2.6-4.7) Magnesium Level 2.4 mg/dL (1.8-2.4) O2 Saturation 98 % (92-99) Arterial Blood pH 7.36 (7.35-7.45) Arterial Blood pCO2 at Patient Temp 68 mmHg (35-46) Arterial Blood pO2 at Patient Temp 142 mmHg (65-108) Arterial Blood HCO3 37 mmol/L (21-28) Arterial Blood Base Excess 10 mmol/L (-3-3) FiO2 60% 18/6 r 24 Test 08/14/21 08:33 Glucose (Fingerstick) 174 mg/dL (70-99) Micro Micro Microbiology 08/12/21 Urine Culture - Final, Complete 08/10/21 Blood Culture - Preliminary, Resulted NO GROWTH AFTER 3 DAYS Review of Systems Constitutional: yes: unresponsive Physical Exam General Appearance: no apparent distress Skin: warm Respiratory: decreased breath sounds, other (NO AIR FLOW LEFT SIDE) Heart: S1S2 Abdomen: bowel sounds present Genitourinary: bladder flat Extremities: pulses present, atrophy Neurology: other (SEDATED) Assessment Assessment IMP [id number] HYPERKALEMIA HYPERNATREMIA MET AND RESP ACIDOSIS WITH SIGNIFICANT HYPERCARBIA ACUTE HYPOXIC RESP FAILURE LARGE LEFT PLEURAL EFFUSION RIGHT UPPER LOVER CAVITARY LESION COPD WITH AECOPD COVID 19 POS ELEVATED LFT'S LEUCOCYTOSIS-DEMARGINATION MOST LIKELY PLAN LUNG SUPPORT OFF IVF ANTIBIOTICS PROGNOSIS VERY POOR FAMILY WANTED FULL AGGRESSIVE CARE HD STARTED YESTERDAY HD AGAIN TODAY UF IF TOLERATED SEAN CORDOBA MD Aug 14, 2021 11:24
[2021-08-14] MEDS ORDERED: ALBUMIN HUMAN 25% 200 ML IV PRN (12:00)
[2021-08-14] MEDS ORDERED: DIALYSIS PATIENT. MC PRN ×2 (12:00)
[2021-08-14] MEDS ORDERED: IV NORMAL SALINE 1000ML BAG 1,000 ML IV PRN ×2 (12:00)
[2021-08-14] MEDS: cefTRIAXone IV Push 1 GM VIAL. IVP SCH (12:47)
[2021-08-14] MEDS: HEPARIN for SUB-Q USE 5,000 UNIT/ML VIAL. SQ SCH ×2 (12:55→21:49)
--- NOTE | 2021-08-14 15:55 | NUR ---
SS following up with discharge planning. SS reviewed pt chart and discussed with pt RN. Pt is currently on the BIPAP at 40%. COVID19 positive. Pt on Heparin, Levophed and Precedex. Pt on IV Rocephin and IV Solu-Medrol. Chest tube in place. Hemodialysis. DNR now. Not stable. SS will continue to follow for discharge planning.
[2021-08-15] VITALS (24 sets, daily range): BP systolic 49–153; BP diastolic 49–82
[2021-08-15] MEDS: NOREPINEPHRINE VIAL 8 MG in IV DEXTROSE 5% 250 ML IV PRN (00:31)
[2021-08-15] MEDS: methylPREDNISolone SOD SUCC PF 40 MG/ML VIAL. IV SCH ×3 (05:36→22:36)
[2021-08-15 06:15] LABS: BASO % 0 % (0-3); EOS % 0 % (0-3); HEMATOCRIT 24.3 % (36.0-47.0); HEMOGLOBIN 7.4 g/dL (12.0-15.5); LYMPH # 0.1 x10^3/uL (1.0-4.8); LYMPH % 1 % (24-48); MEAN CORPUSCULAR HEMOGLOBIN 27 pg (25-35); MEAN CORPUSCULAR HGB CONC 31 g/dL (31-37); MEAN CORPUSCULAR VOLUME 88 fL (79-100); MONO # 0.4 x10^3/uL (0.0-1.1); MONO % 4 % (0-9); NEUT # 10.5 x10^3/uL (1.8-7.7); NEUT % 96 % (31-73); PLATELET COUNT 105 x10^3/uL (140-400); RED BLOOD COUNT 2.76 x10^6/uL (3.50-5.40); RED CELL DISTRIBUTION WIDTH 15.6 % (11.5-14.5)
[2021-08-15 06:39] LABS: CALCIUM 7.9 mg/dL (8.5-10.1); CREATININE 1.2 mg/dL (0.6-1.0); GFR 51.9; POTASSIUM 4.1 mmol/L (3.5-5.1)
[2021-08-15] MEDS ORDERED: DIALYSIS PATIENT. MC PRN (07:15)
[2021-08-15] MEDS ORDERED: IV NORMAL SALINE 1000ML BAG 1,000 ML IV PRN ×2 (07:15)
[2021-08-15] MEDS: INSULIN LISPRO 300 UNITS/3 ML VIAL. SQ SCH ×3 (07:30→16:30)
[2021-08-15 08:21] LABS: HCO3 ABG 30 mmol/L (21-28); PCO2 ABG 44 mmHg (35-46); PO2 ABG 66 mmHg (65-108)
[2021-08-15 08:22] LABS: BASE EXCESS ABG 6 mmol/L (-3-3); FIO2 ABG 40; SAT O2 ABG 92 % (92-99)
--- NOTE | 2021-08-15 08:37 | RAD ---
XR CHEST 1V History: Effusion. Comparison: Chest x-ray 08/13/2021. CT chest 08/10/2021. Technique: Portable AP chest radiograph. FINDINGS/ IMPRESSION: Tubes and lines: Right internal jugular central venous catheter and a large bore right internal jugul ar dialysis catheter with tips projecting at the right atrium. Left lower thorax pigtail pleural cath eter. Lungs and pleura: Significant interval improvement in left pleural effusion now moderate in size. Imp roved left lung aeration. Persistent diffuse bilateral lung opacities may represent multifocal infect ion and/or edema. Right upper lobe cavitary lesion not well visualized. Cardiac silhouette and pulmonary vasculature: Calcified aorta. Prominent heart size. Indistinct/obscu red pulmonary vasculature Osseous structures and other: Unchanged. Electronically signed by: Jerzy Aguilar MD (08/15/2021 8:34 AM) [id number]
--- NOTE | 2021-08-15 08:56 | PDOC ---
PROGRESS NOTES Date of Service: DATE: 08/15/21 TIME: 08:53 Subjective Subjective seen in ICU on bipap Objective Objective Vital Signs Date Time Temp Pulse Resp B/P (MAP) Pulse Ox O2 Delivery O2 Flow Rate FiO2 08/15/21 07:35 100 BiPAP/CPAP 08/15/21 06:00 86 26 123/54 08/15/21 04:00 97.4 97.4 Intake and Output 08/15/21 07:00 Intake Total 511 ml Output Total 220 ml Balance 291 ml Intake Oral 0 ml IV Total 511 ml Output Urine Total 220 ml Chest Tube Drainage Total 0 ml Physical Exam Abdomen: Soft Heart: Other (tachycardia) Extremities: No cyanosis General: moderate distress Lungs: Other (dec blood flow) Neck: No JVD Skin: No breakdown COMMENT golf ball seize rt breast lump,?cancer Diagnosis Problem List Problems Medical Problems: (1) COVID-19 Status: Acute (2) Mass of left lung Status: Acute (3) Pleural effusion, left Status: Acute (4) Respiratory failure with hypoxia Status: Acute Assessment Assessment 1. Large pleural effusion, most probably underlying lung cancer. 2. Some cavitary lesion in the right upper lobe. 3. COVID positive, only got 1 J and J a month ago. 4. Chronic obstructive pulmonary disease and smoker, 60-pack years. 5. Family says she had a breast lump and they did not want to pursue further investigations, that could be also maybe the source of malignant pleural effusion. PLAN: TPN for nutrition try nasal cannula spoke with pts daughter,wishes DNR ,code status changed to DNR hypoxia with met acidosis on BIPAP Ac kidney failure ,started on emergency dialysis,day #2 yesterday schocked liver LFT in 1000 range . large pleural effusion, left chest tube.2L drianed,chest tube spoke with Pulmonary poor prognosis will consult oncology also. spoke with RN central line placed. Critical care 31 mts coordinating care. At this time, Pulmonary is consulted. Interventional Radiology is consulted. Needs a chest tube. Send fluid for cytology, cultures. In the meantime, broad-spectrum antibiotic, Rocephin and Solu-Medrol. Discussed with the patient's daughter. The patient's daughter expressed that she did not want much things done because of her age, refused treatment for breast lump in the past and they wanted to talk about themselves about code status. Check labs in a.m. Acute renal failure-BUN is 100, creatinine 1.9. Increase normal saline 200 cc/h. Consult Dr. Pope for nephrology evaluation and management. Recheck labs in a.m. Prognosis of this patient is very poor due to her multiple medical problems. Start DVT prophylaxis with subcu heparin. Plan Plan of Care Problems Medical Problems: (1) COVID-19 Status: Acute (2) Mass of left lung Status: Acute (3) Pleural effusion, left Status: Acute (4) Respiratory failure with hypoxia Status: Acute Comment Review of Relevant I have reviewed the following items ambrocio (where applicable) has been applied. Labs Laboratory Tests Test 08/14/21 12:48 08/14/21 16:39 08/14/21 21:55 08/15/21 05:50 Glucose (Fingerstick) 131 mg/dL (70-99) 107 mg/dL (70-99) 98 mg/dL (70-99) White Blood Count 11.0 x10^3/uL (4.0-11.0) Red Blood Count 2.76 x10^6/uL (3.50-5.40) Hemoglobin 7.4 g/dL (12.0-15.5) Hematocrit 24.3 % (36.0-47.0) Mean Corpuscular Volume 88 fL (79-100) Mean Corpuscular Hemoglobin 27 pg (25-35) Mean Corpuscular Hemoglobin Concent 31 g/dL (31-37) Red Cell Distribution Width 15.6 % (11.5-14.5) Platelet Count 105 x10^3/uL (140-400) Neutrophils (%) (Auto) 96 % (31-73) Lymphocytes (%) (Auto) 1 % (24-48) Monocytes (%) (Auto) 4 % (0-9) Eosinophils (%) (Auto) 0 % (0-3) Basophils (%) (Auto) 0 % (0-3) Neutrophils # (Auto) 10.5 x10^3/uL (1.8-7.7) Lymphocytes # (Auto) 0.1 x10^3/uL (1.0-4.8) Monocytes # (Auto) 0.4 x10^3/uL (0.0-1.1) Eosinophils # (Auto) 0.0 x10^3/uL (0.0-0.7) Basophils # (Auto) 0.0 x10^3/uL (0.0-0.2) Sodium Level 142 mmol/L (136-145) Potassium Level 4.1 mmol/L (3.5-5.1) Chloride Level 102 mmol/L (98-107) Carbon Dioxide Level 30 mmol/L (21-32) Anion Gap 10 (6-14) Blood Urea Nitrogen 35 mg/dL (7-20) Creatinine 1.2 mg/dL (0.6-1.0) Estimated GFR (Cockcroft-Gault) 51.9 Glucose Level 118 mg/dL (70-99) Calcium Level 7.9 mg/dL (8.5-10.1) Test 08/15/21 08:10 O2 Saturation 92 % (92-99) Arterial Blood pH 7.46 (7.35-7.45) Arterial Blood pCO2 at Patient Temp 44 mmHg (35-46) Arterial Blood pO2 at Patient Temp 66 mmHg (65-108) Arterial Blood HCO3 30 mmol/L (21-28) Arterial Blood Base Excess 6 mmol/L (-3-3) FiO2 40 Microbiology 08/13/21 Gram Stain - Final, Resulted 08/13/21 Aerobic and Anaerobic Culture - Preliminary, Resulted 08/12/21 Urine Culture - Final, Complete 08/10/21 Blood Culture - Preliminary, Resulted NO GROWTH AFTER 4 DAYS Medications Current Medications Albumin Human 200 ml @ 200 mls/hr 1X PRN PRN IV Hypotension; Start 08/14/21 at 12:00; Stop 08/14/21 at 17:59; Status DC Info (PHARMACY MONITORING -- do not chart) 1 each PRN DAILY PRN MC SEE COMMENTS; Start 08/14/21 at 12:00 Info (PHARMACY MONITORING -- do not chart) 1 each PRN DAILY PRN MC SEE COMMENTS; Start 08/14/21 at 12:00; Status UNV Info (PHARMACY MONITORING -- do not chart) 1 each PRN DAILY PRN MC SEE COMMENTS; Start 08/15/21 at 07:15 Sodium Chloride 1,000 ml @ 400 mls/hr Q2H30M PRN IV PATENCY; Start 08/14/21 at 12:00; Stop 08/14/21 at 23:59; Status DC Sodium Chloride 1,000 ml @ 400 mls/hr Q2H30M PRN IV PATENCY; Start 08/15/21 at 07:15; Stop 08/15/21 at 19:14 Sodium Chloride 1,000 ml @ 1,000 mls/hr Q1H PRN IV hypotension; Start 08/14/21 at 12:00; Stop 08/14/21 at 17:59; Status DC Sodium Chloride 1,000 ml @ 1,000 mls/hr Q1H PRN IV hypotension; Start 08/15/21 at 07:15; Stop 08/15/21 at 13:14 Vitals/I & O Vital Sign - Last 24 Hours 08/14/21 08/14/21 08/14/21 08/14/21 09:00 10:00 11:00 12:00 Temp 97.3 97.3 Pulse 84 86 76 82 Resp 30 B/P (MAP) 132/63 147/61 107/44 129/55 Pulse Ox 100 100 100 100 O2 Delivery BiPAP/CPAP BiPAP/CPAP BiPAP/CPAP BiPAP/CPAP 08/14/21 08/14/21 08/14/21 08/14/21 12:14 13:00 14:00 15:00 Pulse 72 76 72 B/P (MAP) 123/54 138/85 116/59 Pulse Ox 100 100 100 94 O2 Delivery BiPAP/CPAP BiPAP/CPAP BiPAP/CPAP 08/14/21 08/14/21 08/14/21 08/14/21 15:57 16:00 16:15 16:45 Temp 97.0 97.0 Pulse 72 76 74 B/P (MAP) 122/63 119/60 95/52 Pulse Ox 100 100 100 88 O2 Delivery BiPAP/CPAP BiPAP/CPAP BiPAP/CPAP BiPAP/CPAP 08/14/21 08/14/21 08/14/21 08/14/21 17:00 17:15 17:30 17:50 Pulse 75 86 76 100 B/P (MAP) 116/58 92/52 90/51 85/55 Pulse Ox 97 95 92 91 O2 Delivery BiPAP/CPAP BiPAP/CPAP BiPAP/CPAP BiPAP/CPAP 08/14/21 08/14/21 08/14/21 08/14/21 18:00 18:10 18:20 19:00 Pulse 80 78 80 B/P (MAP) 76/53 82/53 141/75 163/74 Pulse Ox 87 96 95 100 O2 Delivery BiPAP/CPAP BiPAP/CPAP BiPAP/CPAP BiPAP/CPAP 08/14/21 08/14/21 08/14/21 08/14/21 20:00 20:00 20:38 21:00 Temp 97.7 97.7 Pulse 84 78 B/P (MAP) 144/65 147/61 Pulse Ox 100 100 98 O2 Delivery Bi-pap BiPAP/CPAP BiPAP/CPAP BiPAP/CPAP 08/14/21 08/14/21 08/15/21 08/15/21 22:00 23:00 00:01 00:20 Temp 97.8 97.8 Pulse 94 80 84 B/P (MAP) 119/58 144/63 124/64 Pulse Ox 94 100 100 100 O2 Delivery BiPAP/CPAP BiPAP/CPAP BiPAP/CPAP BiPAP/CPAP 08/15/21 08/15/21 08/15/21 08/15/21 01:00 02:00 03:00 04:00 Temp 97.4 97.4 Pulse 84 76 74 86 Resp 24 21 23 B/P (MAP) 135/59 131/68 140/65 142/72 Pulse Ox 100 100 100 100 O2 Delivery BiPAP/CPAP BiPAP/CPAP BiPAP/CPAP BiPAP/CPAP 08/15/21 08/15/21 08/15/21 08/15/21 04:12 05:00 06:00 07:35 Pulse 84 86 Resp 24 26 B/P (MAP) 140/67 123/54 Pulse Ox 100 100 100 100 O2 Delivery BiPAP/CPAP BiPAP/CPAP BiPAP/CPAP BiPAP/CPAP Intake and Output 08/14/21 08/14/21 08/15/21 15:00 23:00 07:00 Intake Total 431 ml 80 ml Output Total 40 ml 5 ml 175 ml Balance -40 ml 426 ml -95 ml Justifications for Admission Other Justification Nutrition Consultation Dietary Evaluation: Recommendations by RD: Dietary education by RD, Increase Calorie Intake, Protein supplementation Comments: REC regular diet sending Nepro oral nutrition supplements Expected Outcomes/Goals: improved po intake Malnutrition Findings: Muscle Mass (Severe): Severe Depletion Body Fat Depletion (Non Severe: Mod to Severe Weight Status: Underweight ODETTE MILIAN MD Aug 15, 2021 08:56
--- NOTE | 2021-08-15 10:46 | PDOC ---
Renal-Progress Notes Subjective Notes Notes CONFUSED History of Present Illness Hx of present illness NO IMPROVEMENT NOTED Vitals Vitals Vital Signs Date Time Temp Pulse Resp B/P (MAP) Pulse Ox O2 Delivery O2 Flow Rate FiO2 08/15/21 08:00 Bi-pap 08/15/21 07:35 100 08/15/21 06:00 86 26 123/54 08/15/21 04:00 97.4 97.4 Weight Weight [ ] I.O. Intake and Output Intake and Output 08/15/21 07:00 Intake Total 511 ml Output Total 220 ml Balance 291 ml Intake Oral 0 ml IV Total 511 ml Output Urine Total 220 ml Chest Tube Drainage Total 0 ml Labs Labs Laboratory Tests Test 08/14/21 12:48 08/14/21 16:39 08/14/21 21:55 08/15/21 05:50 Glucose (Fingerstick) 131 mg/dL (70-99) 107 mg/dL (70-99) 98 mg/dL (70-99) White Blood Count 11.0 x10^3/uL (4.0-11.0) Red Blood Count 2.76 x10^6/uL (3.50-5.40) Hemoglobin 7.4 g/dL (12.0-15.5) Hematocrit 24.3 % (36.0-47.0) Mean Corpuscular Volume 88 fL (79-100) Mean Corpuscular Hemoglobin 27 pg (25-35) Mean Corpuscular Hemoglobin Concent 31 g/dL (31-37) Red Cell Distribution Width 15.6 % (11.5-14.5) Platelet Count 105 x10^3/uL (140-400) Neutrophils (%) (Auto) 96 % (31-73) Lymphocytes (%) (Auto) 1 % (24-48) Monocytes (%) (Auto) 4 % (0-9) Eosinophils (%) (Auto) 0 % (0-3) Basophils (%) (Auto) 0 % (0-3) Neutrophils # (Auto) 10.5 x10^3/uL (1.8-7.7) Lymphocytes # (Auto) 0.1 x10^3/uL (1.0-4.8) Monocytes # (Auto) 0.4 x10^3/uL (0.0-1.1) Eosinophils # (Auto) 0.0 x10^3/uL (0.0-0.7) Basophils # (Auto) 0.0 x10^3/uL (0.0-0.2) Sodium Level 142 mmol/L (136-145) Potassium Level 4.1 mmol/L (3.5-5.1) Chloride Level 102 mmol/L (98-107) Carbon Dioxide Level 30 mmol/L (21-32) Anion Gap 10 (6-14) Blood Urea Nitrogen 35 mg/dL (7-20) Creatinine 1.2 mg/dL (0.6-1.0) Estimated GFR (Cockcroft-Gault) 51.9 Glucose Level 118 mg/dL (70-99) Calcium Level 7.9 mg/dL (8.5-10.1) Test 08/15/21 08:10 O2 Saturation 92 % (92-99) Arterial Blood pH 7.46 (7.35-7.45) Arterial Blood pCO2 at Patient Temp 44 mmHg (35-46) Arterial Blood pO2 at Patient Temp 66 mmHg (65-108) Arterial Blood HCO3 30 mmol/L (21-28) Arterial Blood Base Excess 6 mmol/L (-3-3) FiO2 40 Micro Micro Microbiology 08/13/21 Gram Stain - Final, Resulted 08/13/21 Aerobic and Anaerobic Culture - Preliminary, Resulted 08/12/21 Urine Culture - Final, Complete 08/10/21 Blood Culture - Preliminary, Resulted NO GROWTH AFTER 4 DAYS Review of Systems Constitutional: yes: unresponsive Physical Exam General Appearance: no apparent distress Skin: warm Respiratory: decreased breath sounds, other (NO AIR FLOW LEFT SIDE) Heart: S1S2 Abdomen: bowel sounds present Genitourinary: bladder flat Extremities: pulses present, atrophy Neurology: other (SEDATED) Assessment Assessment IMP [id number] HYPERKALEMIA HYPERNATREMIA MET AND RESP ACIDOSIS WITH SIGNIFICANT HYPERCARBIA ACUTE HYPOXIC RESP FAILURE LARGE LEFT PLEURAL EFFUSION RIGHT UPPER LOVER CAVITARY LESION COPD WITH AECOPD COVID 19 POS ELEVATED LFT'S LEUCOCYTOSIS-DEMARGINATION MOST LIKELY PLAN LUNG SUPPORT OFF IVF ANTIBIOTICS PROGNOSIS VERY POOR FAMILY WANTED FULL AGGRESSIVE CARE HD TODAY UF MINIMAL TPN TO START CONTINUE TO ENC FAMILY TO WITHDRAW SUPPORT UPDATED DAUGHTER SEAN MORIN MD Aug 15, 2021 10:46
[2021-08-15] MEDS: cefTRIAXone IV Push 1 GM VIAL. IVP SCH (10:56)
[2021-08-15] MEDS: HEPARIN for SUB-Q USE 5,000 UNIT/ML VIAL. SQ SCH ×2 (10:57→22:39)
--- NOTE | 2021-08-15 11:07 | PDOC ---
PULMONARY PROGRESS NOTES DATE: 08/15/21 TIME: 11:04 Subjective Patient currently on BiPAP. 40% FiO2. Low-dose Levophed. Left chest tube placement/100 cc came out since last night. Vitals Vital Signs Date Time Temp Pulse Resp B/P (MAP) Pulse Ox O2 Delivery O2 Flow Rate FiO2 08/15/21 10:48 100 High Flow Nasal Cannula 5.0 08/15/21 06:00 86 26 123/54 08/15/21 04:00 97.4 97.4 Comments Unable to obtain, currently on BiPAP Cardiovascular: S1, S2 Abdomen: Soft Extremities: Other (Edema) Skin: Warm Labs Laboratory Tests Test 08/13/21 14:45 08/13/21 17:03 08/14/21 05:40 08/14/21 08:10 Body Fluid Source Pleural Body Fluid Color Red Body Fluid Clarity Turbid Body Fluid pH 6.97 Body Fluid Nucleated Cells 1399 /cmm (Not Established) Body Fluid Mononuclear WBCs (%) 20 % Body Fluid Polymorphonuclear Cells 36 % Body Fluid Total RBCs Counted 198200 /cmm (Not Body Fluid Other Cells (%) 44 % Body Fluid Glucose 71 mg/dL (.) Body Fluid Total Protein 5.4 g/dL (.) Body Fluid Lactate Dehydrogenase 1306 IU/L (.) Glucose (Fingerstick) 120 mg/dL (70-99) White Blood Count 13.0 x10^3/uL (4.0-11.0) Red Blood Count 2.85 x10^6/uL (3.50-5.40) Hemoglobin 7.4 g/dL (12.0-15.5) Hematocrit 23.6 % (36.0-47.0) Mean Corpuscular Volume 83 fL (79-100) Mean Corpuscular Hemoglobin 26 pg (25-35) Mean Corpuscular Hemoglobin Concent 31 g/dL (31-37) Red Cell Distribution Width 15.3 % (11.5-14.5) Platelet Count 129 x10^3/uL (140-400) Neutrophils (%) (Auto) 96 % (31-73) Lymphocytes (%) (Auto) 0 % (24-48) Monocytes (%) (Auto) 3 % (0-9) Eosinophils (%) (Auto) 0 % (0-3) Basophils (%) (Auto) 0 % (0-3) Neutrophils # (Auto) 12.5 x10^3/uL (1.8-7.7) Lymphocytes # (Auto) 0.1 x10^3/uL (1.0-4.8) Monocytes # (Auto) 0.4 x10^3/uL (0.0-1.1) Eosinophils # (Auto) 0.0 x10^3/uL (0.0-0.7) Basophils # (Auto) 0.1 x10^3/uL (0.0-0.2) Sodium Level 137 mmol/L (136-145) Potassium Level 4.2 mmol/L (3.5-5.1) Chloride Level 97 mmol/L (98-107) Carbon Dioxide Level 37 mmol/L (21-32) Anion Gap 3 (6-14) Blood Urea Nitrogen 57 mg/dL (7-20) Creatinine 1.8 mg/dL (0.6-1.0) Estimated GFR (Cockcroft-Gault) 32.5 Glucose Level 206 mg/dL (70-99) Calcium Level 7.3 mg/dL (8.5-10.1) Phosphorus Level 4.7 mg/dL (2.6-4.7) Magnesium Level 2.4 mg/dL (1.8-2.4) O2 Saturation 98 % (92-99) Arterial Blood pH 7.36 (7.35-7.45) Arterial Blood pCO2 at Patient Temp 68 mmHg (35-46) Arterial Blood pO2 at Patient Temp 142 mmHg (65-108) Arterial Blood HCO3 37 mmol/L (21-28) Arterial Blood Base Excess 10 mmol/L (-3-3) FiO2 60% 18/6 r 24 Test 08/14/21 08:33 08/14/21 12:48 08/14/21 16:39 08/14/21 21:55 Glucose (Fingerstick) 174 mg/dL (70-99) 131 mg/dL (70-99) 107 mg/dL (70-99) 98 mg/dL (70-99) Test 08/15/21 05:50 08/15/21 08:10 White Blood Count 11.0 x10^3/uL (4.0-11.0) Red Blood Count 2.76 x10^6/uL (3.50-5.40) Hemoglobin 7.4 g/dL (12.0-15.5) Hematocrit 24.3 % (36.0-47.0) Mean Corpuscular Volume 88 fL (79-100) Mean Corpuscular Hemoglobin 27 pg (25-35) Mean Corpuscular Hemoglobin Concent 31 g/dL (31-37) Red Cell Distribution Width 15.6 % (11.5-14.5) Platelet Count 105 x10^3/uL (140-400) Neutrophils (%) (Auto) 96 % (31-73) Lymphocytes (%) (Auto) 1 % (24-48) Monocytes (%) (Auto) 4 % (0-9) Eosinophils (%) (Auto) 0 % (0-3) Basophils (%) (Auto) 0 % (0-3) Neutrophils # (Auto) 10.5 x10^3/uL (1.8-7.7) Lymphocytes # (Auto) 0.1 x10^3/uL (1.0-4.8) Monocytes # (Auto) 0.4 x10^3/uL (0.0-1.1) Eosinophils # (Auto) 0.0 x10^3/uL (0.0-0.7) Basophils # (Auto) 0.0 x10^3/uL (0.0-0.2) Sodium Level 142 mmol/L (136-145) Potassium Level 4.1 mmol/L (3.5-5.1) Chloride Level 102 mmol/L (98-107) Carbon Dioxide Level 30 mmol/L (21-32) Anion Gap 10 (6-14) Blood Urea Nitrogen 35 mg/dL (7-20) Creatinine 1.2 mg/dL (0.6-1.0) Estimated GFR (Cockcroft-Gault) 51.9 Glucose Level 118 mg/dL (70-99) Calcium Level 7.9 mg/dL (8.5-10.1) O2 Saturation 92 % (92-99) Arterial Blood pH 7.46 (7.35-7.45) Arterial Blood pCO2 at Patient Temp 44 mmHg (35-46) Arterial Blood pO2 at Patient Temp 66 mmHg (65-108) Arterial Blood HCO3 30 mmol/L (21-28) Arterial Blood Base Excess 6 mmol/L (-3-3) FiO2 40 Laboratory Tests Test 3/1/22 12:48 08/14/21 16:39 08/14/21 21:55 08/15/21 05:50 Glucose (Fingerstick) 131 mg/dL (70-99) 107 mg/dL (70-99) 98 mg/dL (70-99) White Blood Count 11.0 x10^3/uL (4.0-11.0) Red Blood Count 2.76 x10^6/uL (3.50-5.40) Hemoglobin 7.4 g/dL (12.0-15.5) Hematocrit 24.3 % (36.0-47.0) Mean Corpuscular Volume 88 fL (79-100) Mean Corpuscular Hemoglobin 27 pg (25-35) Mean Corpuscular Hemoglobin Concent 31 g/dL (31-37) Red Cell Distribution Width 15.6 % (11.5-14.5) Platelet Count 105 x10^3/uL (140-400) Neutrophils (%) (Auto) 96 % (31-73) Lymphocytes (%) (Auto) 1 % (24-48) Monocytes (%) (Auto) 4 % (0-9) Eosinophils (%) (Auto) 0 % (0-3) Basophils (%) (Auto) 0 % (0-3) Neutrophils # (Auto) 10.5 x10^3/uL (1.8-7.7) Lymphocytes # (Auto) 0.1 x10^3/uL (1.0-4.8) Monocytes # (Auto) 0.4 x10^3/uL (0.0-1.1) Eosinophils # (Auto) 0.0 x10^3/uL (0.0-0.7) Basophils # (Auto) 0.0 x10^3/uL (0.0-0.2) Sodium Level 142 mmol/L (136-145) Potassium Level 4.1 mmol/L (3.5-5.1) Chloride Level 102 mmol/L (98-107) Carbon Dioxide Level 30 mmol/L (21-32) Anion Gap 10 (6-14) Blood Urea Nitrogen 35 mg/dL (7-20) Creatinine 1.2 mg/dL (0.6-1.0) Estimated GFR (Cockcroft-Gault) 51.9 Glucose Level 118 mg/dL (70-99) Calcium Level 7.9 mg/dL (8.5-10.1) Test 08/15/21 08:10 O2 Saturation 92 % (92-99) Arterial Blood pH 7.46 (7.35-7.45) Arterial Blood pCO2 at Patient Temp 44 mmHg (35-46) Arterial Blood pO2 at Patient Temp 66 mmHg (65-108) Arterial Blood HCO3 30 mmol/L (21-28) Arterial Blood Base Excess 6 mmol/L (-3-3) FiO2 40 Medications Active Scripts Medications Dose Route/Sig Max Daily Dose Days Date Category Fish Oil 500 Mg Softgel ([place]-3/Dha/Epa/Fish Oil) 1 Each Capsule 1 Cap PO DAILY 30 08/11/21 Reported Vitamin C (Ascorbic Acid) 500 Mg Capsule.er 500 Mg PO DAILY 08/11/21 Reported Aspirin Ec (Aspirin) 81 Mg Tablet.dr 81 Mg PO DAILY08 08/10/21 Reported Benadryl (Diphenhydramine Hcl) 25 Mg Capsule 1 Cap PO QHS 30 08/10/21 Reported Tylenol Extra Strength (Acetaminophen) 500 Mg Tablet 500 Mg PO PRN Q4HRS PRN 08/10/21 Reported Comments Chest x-ray reviewed dated 08/15/2021. There is significant improvement in left lung pleural effusion. Chest x-ray reviewed 08/13/2021. Partially loculated left upper and left lower lobe effusions. Chest tube is in place. Impression . IMPRESSION: 1. Acute hypoxemic respiratory failure, multifactorial in etiology. 2. Abnormal chest x-ray with large left pleural effusion. Status post thoracentesis. Awaiting analysis especially cytology. 3. Right upper lobe lesion, cavitary lesion possible malignancy 4. Chronic obstructive pulmonary disease with acute exacerbation. 5. Smoker. 6. COVID-19 testing +. 7. Hypertension. 8. Acute renal failure 9. Positive for SARS-CoV-2 possible COVID-19 viral pneumonia 10. History of breast lump. Did not had any work-up in the past due to her refusal. Could be another source of primary malignancy if pleural effusion is malignant Plan . Updated 08/15 Patient has been on BiPAP. We will try high flow cannula. I expect oxygenation to improve since chest x-ray showing reduction in pleural effusion. Oncology has been consulted, patient with a history of breast lump declined work-up in the past Follow up on thoracentesis analysis. Continue chest tube to suction. Follow-up chest x-ray. Empiric antibiotics Follow nephrology input As needed Precedex. Overall prognosis is poor, Await pleural fluid cytology. If malignancy is confirmed would require additional work-up to look for primary Updated 08/14/2021 Family wishes to be aggressive with hemodialysis intubation if needed Oncology has been consulted, patient with a history of breast lump declined work-up in the past Follow up on thoracentesis analysis. Continue chest tube to suction. Follow-up chest x-ray. Empiric antibiotics Follow nephrology input As needed Precedex. Overall prognosis is poor, CCT 30 minutes discussed with RT and RN Updated 08/13 Family wishes to be aggressive with hemodialysis intubation if needed Oncology has been consulted, patient with a history of breast lump declined work-up in the past Follow up on thoracentesis analysis Empiric antibiotics Follow nephrology input As needed sedation Overall prognosis is poor, CCT 30 minutes discussed with RT and RN PLAN AND RECOMMENDATIONS: 1. Titrate FiO2 to keep O2 saturation 90%. 2. Solu-Medrol 40 mg IV every 8 hours. 3. Rocephin. 4. IR consulted to place a chest tube, send pleural fluid for pH cytology, cell count, LDH, total protein, glucose, AFB smear with culture, fungal smear with culture, Gram stain and culture. 5. repeat a CT of the chest after chest tube was placed. 6. Bronchodilator. 7. stop smoking forever. prognosis poor LYNDSAY BOBO MD Aug 15, 2021 11:07
[2021-08-15] MEDS ORDERED: AMPICILLIN SODIUM 1 GM in IV NORMAL SALINE 50ML 50 ML IV SCH (13:00)
[2021-08-15] MEDS: TPN PER PHARMACY MC PRN ×2 (13:28→13:48)
--- NOTE | 2021-08-15 13:46 | NUR ---
Pharmacy TPN Dosing Note S: RAUL ALLEN is a 81 year old F Currently receiving Central Continuous TPN started 08/15/21 B:Pertinent PMH: ? Height: 5 feet, 3 inches Weight: 45.2 kg Current diet: REGULAR LABS: Sodium: 142 Potassium: 4.1 Chloride: 102 Calcium: 7.9 Corrected Calcium: 9.18 Magnesium: 2.4 CO2: 30 SCr: 1.2 Glucose: 118 Albumin: 2.4 AST: 1374 ALT: 925 TPN FORMULA: TPN TYPE: Central Continuous AMINO ACIDS: 60 gm DEXTROSE: 195 gm LIPIDS: 20 gm SODIUM CHLORIDE: 60 mEq SODIUM ACETATE: mEq SODIUM PHOSPHATE: mmol POTASSIUM CHLORIDE: 40 mEq POTASSIUM ACETATE: mEq POTASSIUM PHOSPHATE: 3.4 mmol MAGNESIUM: 5 mEq CALCIUM: 5 mEq INSULIN: units MULTIPLE VITAMIN: 10 ml TRACE ELEMENTS: 1 ml ml(s) TPN PLAN: Start central standard tpn with custom lytes. Lipids add on MWF due to national shortage. BMP, Mg, Phos in am R: Begin TPN as ordered Will monitor electrolytes, glucose, and tolerance to TPN. NORMA POWELL, [facility], 08/15/21 [id number]
--- NOTE | 2021-08-15 15:35 | NUR ---
SS following up with discharge planning. SS reviewed pt chart and discussed with pt RN. Pt is currently requiring oxygen at four liters nasal canula. COVID19 positive. Chest tube in place. Pt on IV Solu-Medrol, IV Rocephin, Heparin Sub Q. DNR. TPN to start tonight. Per RN, pt is restless and has mitts. Hemodialysis. Not stable. SS will continue to follow for discharge planning.
--- NOTE | 2021-08-15 15:56 | NUR ---
Wound Care Wound care consult for wound on back. Pt has a large, suspicious lesion on central back that is dark pigmented and papular. No open areas noted. OWund care will sign off at this time. Reconsult if new wounds develop
--- NOTE | 2021-08-15 17:07 | PATHOLOGY ---
Note [facility] Accession Number: [id number] TESTS RESULT FLAG UNITS REF RANGE LAB Clinician Provided Cytology Information No. of containers..01 Other (Miscellaneous) Source: [A] 01 LEFT PLEURAL FLUID DIAGNOSIS: [A] 02 LEFT PLEURAL FLUID POSITIVE FOR MALIGNANT CELLS. ADENOCARCINOMA IS PRESENT. This case is co-reviewed by . Signed out by: 02 Joo Mena MD, Pathologist NPI- [id number] Performed by: Charlotte Philip, Rescue Boat Operator ([facility]) Gross description: 01 30ML, BLOODY RED, CLOUDY /LCS 08/14/2021 1635 Local FLAG LEGEND: L-Low Normal,H-High Normal,LL-Alert Low,HH-Alert High <-Panic Low,>-Panic High,A-Abnormal,AA-Critical Abnormal Performed at: 01 [facility] [address] [place] [address] Carlos Larson MD, 02 [facility] [address] Joo Mena MD, Specimen Comment: A courtesy copy of this report has been sent to [phone], [phone] Specimen Comment: [id number], Specimen Comment: Report sent to , DR BROWN / DR MILIAN Performed at: 01 [facility] [place] [address], [place], [place] [id number] MD Carlos Larson MD Phone: [phone]
[2021-08-15] MEDS: DEXMEDETOMIDINE 400 MCG in IV NORMAL SALINE 100ML 96 ML IV PRN (21:13)
[2021-08-15] MEDS ORDERED: TOTAL PARENTERAL NUTRITION IV SCH ×2 (22:00)
[2021-08-15] MEDS ORDERED: DEXTROSE 70% IV SCH ×2 (22:00)
[2021-08-15] MEDS ORDERED: AMINO ACID IV SCH ×2 (22:00)
[2021-08-15] MEDS ORDERED: [UNRECOGNIZED DRUG - OTHER] IV SCH (22:00)
[2021-08-15] MEDS ORDERED: [UNRECOGNIZED DRUG - OTHER] IV SCH (22:00)
[2021-08-16] VITALS (10 sets, daily range): BP systolic 99–169; BP diastolic 42–70
--- NOTE | 2021-08-16 05:04 | NUR ---
Patient's O2 sat decreased to 74%, Bipap increased to 100%, call to RT. Amairani from RT came and assessed Patient Patient increased to 98% on !00%, Amairani decreased Bipap to 80%. Patient resting O2 sat at 98%.
[2021-08-16] MEDS: methylPREDNISolone SOD SUCC PF 40 MG/ML VIAL. IV SCH ×3 (05:31→21:57)
[2021-08-16 06:30] LABS: ALBUMIN 2.7 g/dL (3.4-5.0); CALCIUM 8.2 mg/dL (8.5-10.1); CREATININE 1.1 mg/dL (0.6-1.0); DIRECT BILIRUBIN 0.3 mg/dL (0.0-0.2); GFR 57.4; MAGNESIUM 2.5 mg/dL (1.8-2.4); PHOSPHORUS 4.5 mg/dL (2.6-4.7); POTASSIUM 4.3 mmol/L (3.5-5.1); TOTAL BILIRUBIN 0.7 mg/dL (0.2-1.0); TOTAL PROTEIN 6.4 g/dL (6.4-8.2)
--- NOTE | 2021-08-16 08:12 | RAD ---
XR CHEST 1V History: Effusion Comparison: 08/15/2021 Technique: Portable AP chest radiograph. FINDINGS/ IMPRESSION: Tubes and lines: 2 right internal jugular central venous catheters with tips projecting at the right atrium. Lower left pigtail pleural drainage catheter unchanged. Lungs and pleura: Rotated positioning. [id number] left effusion persists. No pneumothorax. Dif fuse bilateral airspace opacities stable to minimally increased based on differences in positioning. Cardiac silhouette and pulmonary vasculature: Unchanged prominent cardiac silhouette and obscured/ind istinct pulmonary vasculature. Osseous structures and other: Unchanged. Electronically signed by: Jerzy Aguilar MD (08/16/2021 8:10 AM) [id number]
--- NOTE | 2021-08-16 08:47 | PDOC2 ---
CONSULT Date of Consult Date of Consult DATE: 08/16/21 TIME: 08:31 Reason for Consult Reason for Consult: Malignant pleural effusion Referring Physician Referring Physician: Dr. Durbin Identification/Chief Complaint Chief Complaint COVID-19 Source Source: Chart review History of Present Illness Reason for Visit: Julianna Castro is a 81-year-old female who has been admitted to [facility] with acute respiratory failure and COVID-19 infection. She received further evaluation with CT chest which showed a large left pleural effusion causing complete atelectasis of the left lung. CT also showed cavitary lesion at the right upper lobe with peripheral soft tissue attenuation. This was felt to represent emphysema with adjacent airspace disease versus cavitating infectious process. She received thoracentesis and cytology showed malignant cells suggestive of adenocarcinoma. Patient reportedly had a breast mass which was not evaluated. Clinical status has deteriorated since her hospitalization. She is currently on 100% FiO2. Pulmonology has been consulted. Hospital course has been complicated by LEONEL. Current Problem List Problem List Problems Medical Problems: (1) COVID-19 Status: Acute (2) Mass of left lung Status: Acute (3) Pleural effusion, left Status: Acute (4) Respiratory failure with hypoxia Status: Acute Current Medications Current Medications Current Medications Sodium Chloride 1,000 ml @ 999 mls/hr 1X ONCE IV Last administered on 08/10/21at 18:05; Start 08/10/21 at 17:15; Stop 08/10/21 at 18:15; Status DC Methylprednisolone Sodium Succinate (SOLU-Medrol 125MG VIAL) 125 mg 1X ONCE IV Last administered on 08/10/21at 19:32; Start 08/10/21 at 19:30; Stop 08/10/21 at 19:31; Status DC Albuterol/ Ipratropium (Duoneb) 3 ml 1X ONCE NEB Last administered on 08/10/21at 19:30; Start 08/10/21 at 19:30; Stop 08/10/21 at 19:31; Status DC Iohexol (Omnipaque 300 Mg/ml) 60 ml 1X ONCE IV Last administered on 08/10/21at 20:58; Start 08/10/21 at 21:00; Stop 08/10/21 at 21:01; Status DC Doxycycline Hyclate 100 mg/ Dextrose 100 ml @ 50 mls/hr 1X ONCE IV Last administered on 08/10/21at 23:02; Start 08/10/21 at 22:00; Stop 08/10/21 at 23:59; Status DC Acetaminophen (Tylenol) 650 mg PRN Q6HRS PRN PO MILD PAIN / TEMP > 100.3'F Last administered on 08/11/21at 21:28; Start 08/11/21 at 00:00 Diphenhydramine HCl (Benadryl) 25 mg PRN QHS PRN PO INSOMNIA Last administered on 08/11/21at 21:28; Start 08/11/21 at 00:00 Ondansetron HCl (Zofran) 4 mg PRN Q8HRS PRN IVP NAUSEA/VOMITING 1ST CHOICE; Start 08/11/21 at 06:30; Stop 08/12/21 at 06:29; Status DC Dexamethasone (Decadron) 6 mg DAILYWBKFT PO ; Start 08/11/21 at 08:00; Stop 08/11/21 at 07:23; Status DC Methylprednisolone Sodium Succinate (SOLU-Medrol 40MG VIAL) 40 mg Q8HRS IV Last administered on 08/16/21at 05:31; Start 08/11/21 at 14:00 Methylprednisolone Sodium Succinate (SOLU-Medrol 40MG VIAL) 40 mg 1X ONCE IV Last administered on 08/11/21at 08:37; Start 08/11/21 at 08:00; Stop 08/11/21 at 08:01; Status DC Ceftriaxone Sodium (Rocephin) 1 gm Q24H IVP Last administered on 08/15/21at 10:56; Start 08/11/21 at 09:00 Sodium Chloride 1,000 ml @ 100 mls/hr Q10H IV Last administered on 08/12/21at 21:37; Start 08/11/21 at 13:00; Stop 08/13/21 at 10:51; Status DC Insulin Human Lispro (HumaLOG) 0-8 UNITS TIDBFRMEAL SQ ; Start 08/12/21 at 11:30; Stop 08/16/21 at 07:39; Status DC Heparin Sodium (Porcine) (Heparin Sodium) 5,000 unit Q12HR SQ Last administered on 08/15/21at 22:39; Start 08/12/21 at 11:00 Dexmedetomidine HCl 400 mcg/ Sodium Chloride 100 ml @ 2.345 mls/ hr CONT PRN IV PER PROTOCOL; Start 08/12/21 at 22:30; Stop 08/13/21 at 16:20; Status DC Sodium Chloride 500 ml @ 500 mls/hr 1X PRN PRN IV SEE COMMENTS; Start 08/12/21 at 22:30 Atropine Sulfate (ATROPINE 0.5mg SYRINGE) 0.5 mg PRN Q5MIN PRN IV SEE COMMENTS; Start 08/12/21 at 22:30; Stop 08/13/21 at 16:20; Status DC Sodium Bicarbonate 150 meq/Dextrose 1,150 ml @ 100 mls/hr 1X ONCE IV Last administered on 08/13/21at 12:35; Start 08/13/21 at 12:00; Stop 08/13/21 at 23:29; Status DC Info (PHARMACY MONITORING -- do not chart) 1 each PRN DAILY PRN MC SEE COMMENTS; Start 08/13/21 at 12:45; Stop 08/15/21 at 11:41; Status DC Heparin Sodium (Porcine) (Heparin Sodium) 10,000 unit STK-MED ONCE .ROUTE ; Start 08/13/21 at 13:18; Stop 08/13/21 at 13:18; Status DC Heparin Sodium (Porcine) (Heparin Sodium) 2,500 unit 1X ONCE INT CAT Last administered on 08/13/21at 15:12; Start 08/13/21 at 15:00; Stop 08/13/21 at 15:01; Status DC Albumin Human 100 ml @ 0 mls/hr PRN Q1HR ONCE IV Last administered on 08/13/21at 16:05; Start 08/13/21 at 15:30; Stop 08/13/21 at 15:33; Status DC Norepinephrine Bitartrate 8 mg/ Dextrose 258 ml @ 8.862 mls/ hr CONT PRN IV PER PROTOCOL Last administered on 08/15/21at 00:31; Start 08/13/21 at 15:30 Dexmedetomidine HCl 400 mcg/ Sodium Chloride 100 ml @ 2.29 mls/hr CONT PRN IV PER PROTOCOL Last administered on 08/15/21at 21:13; Start 08/13/21 at 16:15 Sodium Chloride 500 ml @ 500 mls/hr 1X PRN PRN IV SEE COMMENTS; Start 08/13/21 at 16:15 Atropine Sulfate (ATROPINE 0.5mg SYRINGE) 0.5 mg PRN Q5MIN PRN IV SEE COMMENTS; Start 08/13/21 at 16:15 Sodium Chloride 1,000 ml @ 1,000 mls/hr Q1H PRN IV hypotension; Start 08/14/21 at 12:00; Stop 08/14/21 at 17:59; Status DC Albumin Human 200 ml @ 200 mls/hr 1X PRN PRN IV Hypotension; Start 08/14/21 at 12:00; Stop 08/14/21 at 17:59; Status DC Sodium Chloride 1,000 ml @ 400 mls/hr Q2H30M PRN IV PATENCY; Start 08/14/21 at 12:00; Stop 08/14/21 at 23:59; Status DC Info (PHARMACY MONITORING -- do not chart) 1 each PRN DAILY PRN MC SEE COMMENTS; Start 08/14/21 at 12:00; Status UNV Info (PHARMACY MONITORING -- do not chart) 1 each PRN DAILY PRN MC SEE COMMENTS; Start 08/14/21 at 12:00; Stop 08/15/21 at 11:41; Status DC Sodium Chloride 1,000 ml @ 1,000 mls/hr Q1H PRN IV hypotension; Start 08/15/21 at 07:15; Stop 08/15/21 at 13:14; Status DC Sodium Chloride 1,000 ml @ 400 mls/hr Q2H30M PRN IV PATENCY; Start 08/15/21 at 07:15; Stop 08/15/21 at 19:14; Status DC Info (PHARMACY MONITORING -- do not chart) 1 each PRN DAILY PRN MC SEE COMMENTS; Start 08/15/21 at 07:15 Info (Tpn Per Pharmacy) 1 each PRN DAILY PRN MC SEE COMMENTS Last administered on 08/15/21at 13:48; Start 08/15/21 at 11:00 Ampicillin Sodium 1 gm/Sodium Chloride 50 ml @ 100 mls/hr Q6HRS IV ; Start 08/15/21 at 13:00; Status Cancel Sodium Chloride 60 meq/Potassium Chloride 40 meq/ Potassium Phosphate 3.4 mmol/Magnesium Sulfate 5 meq/ Calcium Gluconate 5 meq/ Multivitamins 10 ml/Zinc/Copper/ Manganese/ Selenium 1 ml/ Total Parenteral Nutrition/Amino Acids/Dextrose/ Fat Emulsion Intravenous 1,512 ml @ 63 mls/hr TPN CONT IV ; Start 08/15/21 at 22:00; Stop 08/16/21 at 21:59; Status Cancel Lactobacillus Rhamnosus (Culturelle) 1 cap BID PO ; Start 08/16/21 at 09:00 Sodium Chloride 60 meq/Potassium Chloride 40 meq/ Potassium Phosphate 3.4 mmol/Magnesium Sulfate 5 meq/ Multivitamins 10 ml/Zinc/Copper/ Manganese/ Selenium 1 ml/ Total Parenteral Nutrition/Amino Acids/Dextrose/ Fat Emulsion Intravenous 1,512 ml @ 63 mls/hr TPN CONT IV Last administered on 08/15/21at 22:38; Start 08/15/21 at 22:00; Stop 08/16/21 at 21:59 Insulin Human Lispro (HumaLOG) 0-8 UNITS Q6HRS SQ ; Start 08/16/21 at 12:00 Active Scripts Active Reported Fish Oil 500 Mg Softgel ([place]-3/Dha/Epa/Fish Oil) 1 Each Capsule 1 Cap PO DAILY 30 Days Vitamin C (Ascorbic Acid) 500 Mg Capsule.er 500 Mg PO DAILY Aspirin Ec (Aspirin) 81 Mg Tablet.dr 81 Mg PO DAILY08 Benadryl (Diphenhydramine Hcl) 25 Mg Capsule 1 Cap PO QHS 30 Days Tylenol Extra Strength (Acetaminophen) 500 Mg Tablet 500 Mg PO PRN Q4HRS PRN Allergies Allergies: Coded Allergies: No Known Drug Allergies (Unverified , 08/10/21) ROS Review of System Unable to obtain due to clinical status Physical Exam General: Other (In mild respiratory distress. On BiPAP) HEENT: Atraumatic Lungs: Normal air movement Heart: Regular rate Abdomen: Soft Skin: No rashes Neuro: Normal tone MUSCULOSKELETAL: No swelling Vitals VITALS Vital Signs Date Time Temp Pulse Resp B/P (MAP) Pulse Ox O2 Delivery O2 Flow Rate FiO2 08/16/21 08:00 50.0 08/16/21 08:00 98.3 120 28 107/42 99 BiPAP/CPAP 98.3 Labs Labs Laboratory Tests Test 08/14/21 08:33 08/14/21 12:48 08/14/21 16:39 08/14/21 21:55 Glucose (Fingerstick) 174 mg/dL (70-99) 131 mg/dL (70-99) 107 mg/dL (70-99) 98 mg/dL (70-99) Test 08/15/21 05:50 08/15/21 08:10 08/15/21 16:14 08/15/21 22:45 White Blood Count 11.0 x10^3/uL (4.0-11.0) Red Blood Count 2.76 x10^6/uL (3.50-5.40) Hemoglobin 7.4 g/dL (12.0-15.5) Hematocrit 24.3 % (36.0-47.0) Mean Corpuscular Volume 88 fL (79-100) Mean Corpuscular Hemoglobin 27 pg (25-35) Mean Corpuscular Hemoglobin Concent 31 g/dL (31-37) Red Cell Distribution Width 15.6 % (11.5-14.5) Platelet Count 105 x10^3/uL (140-400) Neutrophils (%) (Auto) 96 % (31-73) Lymphocytes (%) (Auto) 1 % (24-48) Monocytes (%) (Auto) 4 % (0-9) Eosinophils (%) (Auto) 0 % (0-3) Basophils (%) (Auto) 0 % (0-3) Neutrophils # (Auto) 10.5 x10^3/uL (1.8-7.7) Lymphocytes # (Auto) 0.1 x10^3/uL (1.0-4.8) Monocytes # (Auto) 0.4 x10^3/uL (0.0-1.1) Eosinophils # (Auto) 0.0 x10^3/uL (0.0-0.7) Basophils # (Auto) 0.0 x10^3/uL (0.0-0.2) Sodium Level 142 mmol/L (136-145) Potassium Level 4.1 mmol/L (3.5-5.1) Chloride Level 102 mmol/L (98-107) Carbon Dioxide Level 30 mmol/L (21-32) Anion Gap 10 (6-14) Blood Urea Nitrogen 35 mg/dL (7-20) Creatinine 1.2 mg/dL (0.6-1.0) Estimated GFR (Cockcroft-Gault) 51.9 Glucose Level 118 mg/dL (70-99) Calcium Level 7.9 mg/dL (8.5-10.1) O2 Saturation 92 % (92-99) Arterial Blood pH 7.46 (7.35-7.45) Arterial Blood pCO2 at Patient Temp 44 mmHg (35-46) Arterial Blood pO2 at Patient Temp 66 mmHg (65-108) Arterial Blood HCO3 30 mmol/L (21-28) Arterial Blood Base Excess 6 mmol/L (-3-3) FiO2 40 Glucose (Fingerstick) 144 mg/dL (70-99) 146 mg/dL (70-99) Test 08/16/21 05:40 Sodium Level 143 mmol/L (136-145) Potassium Level 4.3 mmol/L (3.5-5.1) Chloride Level 103 mmol/L (98-107) Carbon Dioxide Level 35 mmol/L (21-32) Anion Gap 5 (6-14) Blood Urea Nitrogen 40 mg/dL (7-20) Creatinine 1.1 mg/dL (0.6-1.0) Estimated GFR (Cockcroft-Gault) 57.4 Glucose Level 347 mg/dL (70-99) Calcium Level 8.2 mg/dL (8.5-10.1) Phosphorus Level 4.5 mg/dL (2.6-4.7) Magnesium Level 2.5 mg/dL (1.8-2.4) Total Bilirubin 0.7 mg/dL (0.2-1.0) Direct Bilirubin 0.3 mg/dL (0.0-0.2) Aspartate Amino Transf (AST/SGOT) 64 U/L (15-37) Alanine Aminotransferase (ALT/SGPT) 325 U/L (14-59) Alkaline Phosphatase 71 U/L (46-116) Total Protein 6.4 g/dL (6.4-8.2) Albumin 2.7 g/dL (3.4-5.0) Triglycerides Level 135 mg/dL (0-150) Laboratory Tests Test 08/15/21 16:14 08/15/21 22:45 08/16/21 05:40 Glucose (Fingerstick) 144 mg/dL (70-99) 146 mg/dL (70-99) Sodium Level 143 mmol/L (136-145) Potassium Level 4.3 mmol/L (3.5-5.1) Chloride Level 103 mmol/L (98-107) Carbon Dioxide Level 35 mmol/L (21-32) Anion Gap 5 (6-14) Blood Urea Nitrogen 40 mg/dL (7-20) Creatinine 1.1 mg/dL (0.6-1.0) Estimated GFR (Cockcroft-Gault) 57.4 Glucose Level 347 mg/dL (70-99) Calcium Level 8.2 mg/dL (8.5-10.1) Phosphorus Level 4.5 mg/dL (2.6-4.7) Magnesium Level 2.5 mg/dL (1.8-2.4) Total Bilirubin 0.7 mg/dL (0.2-1.0) Direct Bilirubin 0.3 mg/dL (0.0-0.2) Aspartate Amino Transf (AST/SGOT) 64 U/L (15-37) Alanine Aminotransferase (ALT/SGPT) 325 U/L (14-59) Alkaline Phosphatase 71 U/L (46-116) Total Protein 6.4 g/dL (6.4-8.2) Albumin 2.7 g/dL (3.4-5.0) Triglycerides Level 135 mg/dL (0-150) Assessment/Plan Assessment/Plan Assessment: Malignant pleural effusion of unknown origin Suspected breast mass, declined evaluation in the past Right upper lobe cavitary lesion, possible malignancy COVID-19 pneumonia Acute hypoxic respiratory failure History of tobacco use LEONEL Recommendations: -Noted results of thoracentesis cytology. Noted adenocarcinoma. 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 Plan additional evaluation for adenocarcinoma after improvement of clinical course -Can consider supportive care alone if clinical status continues to decline. Noted that she is DNR and is on BiPAP with 100% oxygen at this time -Management of respiratory failure per pulmonology -Rest per Dr. Ramakrishna De Santiago MD Medical Oncology/Hematology Ph: [phone] MANN DE SANTIAGO MD Aug 16, 2021 08:47
--- NOTE | 2021-08-16 08:55 | PDOC ---
PROGRESS NOTES Date of Service: DATE: 08/16/21 TIME: 08:51 Subjective Subjective on 80% oxygen on BIPAP getting worse Objective Objective Vital Signs Date Time Temp Pulse Resp B/P (MAP) Pulse Ox O2 Delivery O2 Flow Rate FiO2 08/16/21 08:00 50.0 08/16/21 08:00 Bi-pap 08/16/21 08:00 98.3 120 28 107/42 99 98.3 Intake and Output 08/16/21 07:00 Intake Total 0 ml Output Total 480 ml Balance -480 ml Intake Oral 0 ml Output Urine Total 350 ml Chest Tube Drainage Total 130 ml Physical Exam Abdomen: Soft Heart: Regular rate Extremities: No cyanosis General: Other (In mild respiratory distress. On BiPAP) HEENT: Atraumatic Lungs: Normal air movement MUSCULOSKELETAL: No swelling Neck: No JVD Neuro: Normal tone Skin: No rashes COMMENT golf ball seize rt breast lump,?cancer Diagnosis Problem List Problems Medical Problems: (1) COVID-19 Status: Acute (2) Mass of left lung Status: Acute (3) Pleural effusion, left Status: Acute (4) Respiratory failure with hypoxia Status: Acute Assessment Assessment 1. Large pleural effusion, most probably underlying lung cancer. 2. Some cavitary lesion in the right upper lobe. 3. COVID positive, only got 1 J and J a month ago. 4. Chronic obstructive pulmonary disease and smoker, 60-pack years. 5. Family says she had a breast lump and they did not want to pursue further investigations, that could be also maybe the source of malignant pleural effusion. PLAN:pleural fluid cytology showed adeno ca malignant cells from lung . cxr worse rt lung infiltrates spoke with pts daughter,best option comfort care, she is going to talk to her siblings TPN for nutrition spoke with Renal. poor prognosis. spoke with pts daughter,wishes DNR ,code status changed to DNR hypoxia with met acidosis on BIPAP Ac kidney failure ,started on emergency dialysis,day #2 yesterday schocked liver LFT in 1000 range . large pleural effusion, left chest tube.2L drianed,chest tube spoke with Pulmonary poor prognosis will consult oncology also. spoke with RN central line placed. Critical care 31 mts coordinating care. At this time, Pulmonary is consulted. Interventional Radiology is consulted. Needs a chest tube. Send fluid for cytology, cultures. In the meantime, broad-spectrum antibiotic, Rocephin and Solu-Medrol. Discussed with the patient's daughter. The patient's daughter expressed that she did not want much things done because of her age, refused treatment for breast lump in the past and they wanted to talk about themselves about code status. Check labs in a.m. Acute renal failure-BUN is 100, creatinine 1.9. Increase normal saline 200 cc/h. Consult Dr. Pope for nephrology evaluation and management. Recheck labs in a.m. Prognosis of this patient is very poor due to her multiple medical problems. Start DVT prophylaxis with subcu heparin. Plan Plan of Care Problems Medical Problems: (1) COVID-19 Status: Acute (2) Mass of left lung Status: Acute (3) Pleural effusion, left Status: Acute (4) Respiratory failure with hypoxia Status: Acute Comment Review of Relevant I have reviewed the following items ambrocio (where applicable) has been applied. Labs Laboratory Tests Test 08/15/21 16:14 08/15/21 22:45 08/16/21 05:40 Glucose (Fingerstick) 144 mg/dL (70-99) 146 mg/dL (70-99) Sodium Level 143 mmol/L (136-145) Potassium Level 4.3 mmol/L (3.5-5.1) Chloride Level 103 mmol/L (98-107) Carbon Dioxide Level 35 mmol/L (21-32) Anion Gap 5 (6-14) Blood Urea Nitrogen 40 mg/dL (7-20) Creatinine 1.1 mg/dL (0.6-1.0) Estimated GFR (Cockcroft-Gault) 57.4 Glucose Level 347 mg/dL (70-99) Calcium Level 8.2 mg/dL (8.5-10.1) Phosphorus Level 4.5 mg/dL (2.6-4.7) Magnesium Level 2.5 mg/dL (1.8-2.4) Total Bilirubin 0.7 mg/dL (0.2-1.0) Direct Bilirubin 0.3 mg/dL (0.0-0.2) Aspartate Amino Transf (AST/SGOT) 64 U/L (15-37) Alanine Aminotransferase (ALT/SGPT) 325 U/L (14-59) Alkaline Phosphatase 71 U/L (46-116) Total Protein 6.4 g/dL (6.4-8.2) Albumin 2.7 g/dL (3.4-5.0) Triglycerides Level 135 mg/dL (0-150) Microbiology 08/13/21 Gram Stain - Final, Resulted 08/13/21 Aerobic and Anaerobic Culture - Preliminary, Resulted 08/12/21 Urine Culture - Final, Complete 08/10/21 Blood Culture - Final, Complete NO GROWTH AFTER 5 DAYS Medications Current Medications Ampicillin Sodium 1 gm/Sodium Chloride 50 ml @ 100 mls/hr Q6HRS IV ; Start 08/15/21 at 13:00; Status Cancel Info (Tpn Per Pharmacy) 1 each PRN DAILY PRN MC SEE COMMENTS Last administered on 08/15/21at 13:48; Start 08/15/21 at 11:00 Insulin Human Lispro (HumaLOG) 0-8 UNITS Q6HRS SQ ; Start 08/16/21 at 12:00 Lactobacillus Rhamnosus (Culturelle) 1 cap BID PO ; Start 08/16/21 at 09:00 Sodium Chloride 60 meq/Potassium Chloride 40 meq/ Potassium Phosphate 3.4 mmol/Magnesium Sulfate 5 meq/ Calcium Gluconate 5 meq/ Multivitamins 10 ml/Zinc/Copper/ Manganese/ Selenium 1 ml/ Total Parenteral Nutrition/Amino Acids/Dextrose/ Fat Emulsion Intravenous 1,512 ml @ 63 mls/hr TPN CONT IV ; Start 08/15/21 at 22:00; Stop 08/16/21 at 21:59; Status Cancel Sodium Chloride 60 meq/Potassium Chloride 40 meq/ Potassium Phosphate 3.4 mmol/Magnesium Sulfate 5 meq/ Multivitamins 10 ml/Zinc/Copper/ Manganese/ Selenium 1 ml/ Total Parenteral Nutrition/Amino Acids/Dextrose/ Fat Emulsion Intravenous 1,512 ml @ 63 mls/hr TPN CONT IV Last administered on 08/15/21at 22:38; Start 08/15/21 at 22:00; Stop 08/16/21 at 21:59 Vitals/I & O Vital Sign - Last 24 Hours 08/15/21 08/15/21 08/15/21 08/15/21 09:00 10:00 10:48 11:00 Pulse 104 82 96 Resp 30 26 28 B/P (MAP) 78/64 87/67 119/66 Pulse Ox 100 100 100 100 O2 Delivery BiPAP/CPAP BiPAP/CPAP High Flow Nasal Cannula Nasal Cannula O2 Flow Rate 5.0 8.0 08/15/21 08/15/21 08/15/21 08/15/21 12:00 13:00 13:12 14:00 Temp 97.4 97.4 Pulse 112 114 116 Resp 24 28 B/P (MAP) 129/57 136/66 130/82 Pulse Ox 100 100 100 99 O2 Delivery Nasal Cannula Nasal Cannula High Flow Nasal Cannula Nasal Cannula O2 Flow Rate 8.0 5.0 4.0 4.0 08/15/21 08/15/21 08/15/21 08/15/21 15:00 16:00 17:00 18:00 Temp 97.9 97.9 Pulse 118 104 116 122 Resp 24 28 B/P (MAP) 119/66 121/68 143/66 147/60 Pulse Ox 100 92 94 76 O2 Delivery Nasal Cannula Nasal Cannula Nasal Cannula BiPAP/CPAP O2 Flow Rate 4.0 6.0 6.0 40.0 08/15/21 08/15/21 08/15/21 08/15/21 19:00 20:00 20:15 20:15 Temp 98.0 98.0 Pulse 120 120 Resp 29 B/P (MAP) 118/53 153/63 Pulse Ox 91 93 O2 Delivery BiPAP/CPAP BiPAP/CPAP Bi-pap O2 Flow Rate 50.0 50.0 50.0 08/15/21 08/15/21 08/15/21 08/16/21 21:00 22:00 23:00 00:00 Temp 98.0 98.0 Pulse 112 120 120 110 Resp 17 36 26 B/P (MAP) 116/82 142/76 97/49 169/61 Pulse Ox 96 94 97 91 O2 Delivery BiPAP/CPAP BiPAP/CPAP BiPAP/CPAP BiPAP/CPAP O2 Flow Rate 50.0 50.0 50.0 50.0 08/16/21 08/16/21 08/16/21 08/16/21 00:18 00:19 01:00 02:00 Pulse 112 112 Resp 27 21 B/P (MAP) 155/70 142/62 Pulse Ox 92 94 O2 Delivery Bi-pap BiPAP/CPAP BiPAP/CPAP O2 Flow Rate 50.0 50.0 50.0 08/16/21 08/16/21 08/16/21 08/16/21 03:00 04:00 04:00 05:00 Temp 97.7 97.7 Pulse 108 100 108 Resp 24 15 19 B/P (MAP) 136/59 99/45 140/59 Pulse Ox 94 94 95 O2 Delivery BiPAP/CPAP BiPAP/CPAP BiPAP/CPAP O2 Flow Rate 50.0 60.0 50.0 60.0 08/16/21 08/16/21 08/16/21 08/16/21 05:01 06:00 07:00 07:57 Pulse 110 108 Resp 34 24 B/P (MAP) 111/51 134/62 Pulse Ox 96 98 98 98 O2 Delivery BiPAP/CPAP BiPAP/CPAP BiPAP/CPAP BiPAP/CPAP O2 Flow Rate 80.0 80.0 08/16/21 08/16/21 08/16/21 08:00 08:00 08:00 Temp 98.3 98.3 Pulse 120 Resp 28 B/P (MAP) 107/42 Pulse Ox 99 O2 Delivery BiPAP/CPAP Bi-pap O2 Flow Rate 60.0 50.0 Intake and Output 08/15/21 08/15/21 08/16/21 15:00 23:00 07:00 Intake Total 0 ml Output Total 165 ml 270 ml 45 ml Balance -165 ml -270 ml -45 ml Justifications for Admission Other Justification Nutrition Consultation Dietary Evaluation: Recommendations by RD: Dietary education by RD, Increase Calorie Intake, Protein supplementation Comments: REC regular diet sending Nepro oral nutrition supplements REC mvi and vit C for skin breakdown prevention Expected Outcomes/Goals: improved po intake- goal ongoing Malnutrition Findings: Muscle Mass (Severe): Severe Depletion Body Fat Depletion (Non Severe: Mod to Severe Weight Status: Underweight ODETTE MILIAN MD Aug 16, 2021 08:55
[2021-08-16] MEDS: HEPARIN for SUB-Q USE 5,000 UNIT/ML VIAL. SQ SCH ×2 (09:00→21:00)
[2021-08-16] MEDS ORDERED: LACTOBACILLUS RHAMNOSUS GG 1 CAPSULE. PO SCH (09:00)
[2021-08-16] MEDS: cefTRIAXone IV Push 1 GM VIAL. IVP SCH (09:00)
--- NOTE | 2021-08-16 09:53 | PDOC ---
Renal-Progress Notes Subjective Notes Notes CONFUSED History of Present Illness Hx of present illness NOT ANY BETTER. MALIGNANCY DIAGNOSED Vitals Vitals Vital Signs Date Time Temp Pulse Resp B/P (MAP) Pulse Ox O2 Delivery O2 Flow Rate FiO2 08/16/21 08:00 50.0 08/16/21 08:00 Bi-pap 08/16/21 08:00 98.3 120 28 107/42 99 98.3 Weight Weight [ ] I.O. Intake and Output Intake and Output 08/16/21 07:00 Intake Total 0 ml Output Total 480 ml Balance -480 ml Intake Oral 0 ml Output Urine Total 350 ml Chest Tube Drainage Total 130 ml Labs Labs Laboratory Tests Test 08/15/21 16:14 08/15/21 22:45 08/16/21 05:40 Glucose (Fingerstick) 144 mg/dL (70-99) 146 mg/dL (70-99) Sodium Level 143 mmol/L (136-145) Potassium Level 4.3 mmol/L (3.5-5.1) Chloride Level 103 mmol/L (98-107) Carbon Dioxide Level 35 mmol/L (21-32) Anion Gap 5 (6-14) Blood Urea Nitrogen 40 mg/dL (7-20) Creatinine 1.1 mg/dL (0.6-1.0) Estimated GFR (Cockcroft-Gault) 57.4 Glucose Level 347 mg/dL (70-99) Calcium Level 8.2 mg/dL (8.5-10.1) Phosphorus Level 4.5 mg/dL (2.6-4.7) Magnesium Level 2.5 mg/dL (1.8-2.4) Total Bilirubin 0.7 mg/dL (0.2-1.0) Direct Bilirubin 0.3 mg/dL (0.0-0.2) Aspartate Amino Transf (AST/SGOT) 64 U/L (15-37) Alanine Aminotransferase (ALT/SGPT) 325 U/L (14-59) Alkaline Phosphatase 71 U/L (46-116) Total Protein 6.4 g/dL (6.4-8.2) Albumin 2.7 g/dL (3.4-5.0) Triglycerides Level 135 mg/dL (0-150) Micro Micro Microbiology 08/13/21 Gram Stain - Final, Resulted 08/13/21 Aerobic and Anaerobic Culture - Preliminary, Resulted 08/12/21 Urine Culture - Final, Complete 08/10/21 Blood Culture - Final, Complete NO GROWTH AFTER 5 DAYS Review of Systems Constitutional: yes: unresponsive Physical Exam General Appearance: no apparent distress Skin: warm Respiratory: decreased breath sounds, other (NO AIR FLOW LEFT SIDE) Heart: S1S2 Abdomen: bowel sounds present Genitourinary: bladder flat Extremities: pulses present, atrophy Neurology: other (SEDATED) Assessment Assessment IMP [id number] HYPERKALEMIA HYPERNATREMIA MET AND RESP ACIDOSIS WITH SIGNIFICANT HYPERCARBIA ACUTE HYPOXIC RESP FAILURE LARGE LEFT PLEURAL EFFUSION RIGHT UPPER LOVER CAVITARY LESION COPD WITH AECOPD COVID 19 POS ELEVATED LFT'S LEUCOCYTOSIS-DEMARGINATION MOST LIKELY BREAST MASS PROB MALIGNANCY PLAN LUNG SUPPORT OFF IVF ANTIBIOTICS PROGNOSIS VERY POOR FAMILY WANTED FULL AGGRESSIVE CARE NOT IDEAL TO CONTINUE WITH DIALYSIS SUGGEST HOSPICE D/W ATTENDING NO PLANS FOR HD TODAY SEAN CORDOBA MD Aug 16, 2021 09:53
[2021-08-16] MEDS: TPN PER PHARMACY MC PRN (10:24)
--- NOTE | 2021-08-16 10:27 | NUR ---
Pharmacy TPN Dosing Note S: RAUL ALLEN is a 81 year old F Currently receiving Central Continuous TPN started 08/15/21 B:Pertinent PMH: ? Height: 5 feet, 3 inches Weight: 46.9 kg Current diet: REGULAR LABS: Sodium: 143 Potassium: 4.3 Chloride: 103 Calcium: 8.2 Corrected Calcium: 9.24 Magnesium: 2.5 CO2: 35 SCr: 1.2 Glucose: 347 Albumin: 2.7 AST: 1374 ALT: 925 TPN FORMULA: TPN TYPE: Central Continuous AMINO ACIDS: 60 gm DEXTROSE: 195 gm LIPIDS: 20 gm SODIUM CHLORIDE: 60 mEq SODIUM ACETATE: mEq SODIUM PHOSPHATE: mmol POTASSIUM CHLORIDE: 40 mEq POTASSIUM ACETATE: mEq POTASSIUM PHOSPHATE: 3.4 mmol MAGNESIUM: 5 mEq CALCIUM: 5 mEq INSULIN: units MULTIPLE VITAMIN: 10 ml TRACE ELEMENTS: 1 ml ml(s) TPN PLAN: Lipids (20gm) added on MWF due to national shortage. Remove mag from tpn BMP, Mg, Phos, in am R: Continue TPN as ordered Will monitor electrolytes, glucose, and tolerance to TPN. NORMA POWELL, [facility], 08/16/21 [id number]
--- NOTE | 2021-08-16 10:56 | NUR ---
SS following up with discharge planning. SS reviewed pt chart and discussed with pt RN. Pt is currently requiring BIPAP at 80%. COVID19 positive. Chest tube in place. Pt on IV Solu-Medrol, IV Rocephin, and Heparin Sub Q. DNR. TPN. Hemodialysis. Not stable. Possible withdraw of care in the next 24-48 hours. SS will continue to follow for discharge planning.
--- NOTE | 2021-08-16 10:58 | PDOC ---
PULMONARY PROGRESS NOTES DATE: 08/16/21 TIME: 10:53 Subjective Patient currently on BiPAP. 40% FiO2. Low-dose Levophed. Left chest tube placement/80 cc came out since last night. Vitals Vital Signs Date Time Temp Pulse Resp B/P (MAP) Pulse Ox O2 Delivery O2 Flow Rate FiO2 08/16/21 08:00 50.0 08/16/21 08:00 Bi-pap 08/16/21 08:00 98.3 120 28 107/42 99 98.3 Comments Unable to obtain, currently on BiPAP Cardiovascular: S1, S2 Abdomen: Soft Extremities: Other (Edema) Skin: Warm Labs Laboratory Tests Test 08/14/21 12:48 08/14/21 16:39 08/14/21 21:55 08/15/21 05:50 Glucose (Fingerstick) 131 mg/dL (70-99) 107 mg/dL (70-99) 98 mg/dL (70-99) White Blood Count 11.0 x10^3/uL (4.0-11.0) Red Blood Count 2.76 x10^6/uL (3.50-5.40) Hemoglobin 7.4 g/dL (12.0-15.5) Hematocrit 24.3 % (36.0-47.0) Mean Corpuscular Volume 88 fL (79-100) Mean Corpuscular Hemoglobin 27 pg (25-35) Mean Corpuscular Hemoglobin Concent 31 g/dL (31-37) Red Cell Distribution Width 15.6 % (11.5-14.5) Platelet Count 105 x10^3/uL (140-400) Neutrophils (%) (Auto) 96 % (31-73) Lymphocytes (%) (Auto) 1 % (24-48) Monocytes (%) (Auto) 4 % (0-9) Eosinophils (%) (Auto) 0 % (0-3) Basophils (%) (Auto) 0 % (0-3) Neutrophils # (Auto) 10.5 x10^3/uL (1.8-7.7) Lymphocytes # (Auto) 0.1 x10^3/uL (1.0-4.8) Monocytes # (Auto) 0.4 x10^3/uL (0.0-1.1) Eosinophils # (Auto) 0.0 x10^3/uL (0.0-0.7) Basophils # (Auto) 0.0 x10^3/uL (0.0-0.2) Sodium Level 142 mmol/L (136-145) Potassium Level 4.1 mmol/L (3.5-5.1) Chloride Level 102 mmol/L (98-107) Carbon Dioxide Level 30 mmol/L (21-32) Anion Gap 10 (6-14) Blood Urea Nitrogen 35 mg/dL (7-20) Creatinine 1.2 mg/dL (0.6-1.0) Estimated GFR (Cockcroft-Gault) 51.9 Glucose Level 118 mg/dL (70-99) Calcium Level 7.9 mg/dL (8.5-10.1) Test 08/15/21 08:10 08/15/21 16:14 08/15/21 22:45 08/16/21 05:40 O2 Saturation 92 % (92-99) Arterial Blood pH 7.46 (7.35-7.45) Arterial Blood pCO2 at Patient Temp 44 mmHg (35-46) Arterial Blood pO2 at Patient Temp 66 mmHg (65-108) Arterial Blood HCO3 30 mmol/L (21-28) Arterial Blood Base Excess 6 mmol/L (-3-3) FiO2 40 Glucose (Fingerstick) 144 mg/dL (70-99) 146 mg/dL (70-99) Sodium Level 143 mmol/L (136-145) Potassium Level 4.3 mmol/L (3.5-5.1) Chloride Level 103 mmol/L (98-107) Carbon Dioxide Level 35 mmol/L (21-32) Anion Gap 5 (6-14) Blood Urea Nitrogen 40 mg/dL (7-20) Creatinine 1.1 mg/dL (0.6-1.0) Estimated GFR (Cockcroft-Gault) 57.4 Glucose Level 347 mg/dL (70-99) Calcium Level 8.2 mg/dL (8.5-10.1) Phosphorus Level 4.5 mg/dL (2.6-4.7) Magnesium Level 2.5 mg/dL (1.8-2.4) Total Bilirubin 0.7 mg/dL (0.2-1.0) Direct Bilirubin 0.3 mg/dL (0.0-0.2) Aspartate Amino Transf (AST/SGOT) 64 U/L (15-37) Alanine Aminotransferase (ALT/SGPT) 325 U/L (14-59) Alkaline Phosphatase 71 U/L (46-116) Total Protein 6.4 g/dL (6.4-8.2) Albumin 2.7 g/dL (3.4-5.0) Triglycerides Level 135 mg/dL (0-150) Laboratory Tests Test 08/15/21 16:14 08/15/21 22:45 08/16/21 05:40 Glucose (Fingerstick) 144 mg/dL (70-99) 146 mg/dL (70-99) Sodium Level 143 mmol/L (136-145) Potassium Level 4.3 mmol/L (3.5-5.1) Chloride Level 103 mmol/L (98-107) Carbon Dioxide Level 35 mmol/L (21-32) Anion Gap 5 (6-14) Blood Urea Nitrogen 40 mg/dL (7-20) Creatinine 1.1 mg/dL (0.6-1.0) Estimated GFR (Cockcroft-Gault) 57.4 Glucose Level 347 mg/dL (70-99) Calcium Level 8.2 mg/dL (8.5-10.1) Phosphorus Level 4.5 mg/dL (2.6-4.7) Magnesium Level 2.5 mg/dL (1.8-2.4) Total Bilirubin 0.7 mg/dL (0.2-1.0) Direct Bilirubin 0.3 mg/dL (0.0-0.2) Aspartate Amino Transf (AST/SGOT) 64 U/L (15-37) Alanine Aminotransferase (ALT/SGPT) 325 U/L (14-59) Alkaline Phosphatase 71 U/L (46-116) Total Protein 6.4 g/dL (6.4-8.2) Albumin 2.7 g/dL (3.4-5.0) Triglycerides Level 135 mg/dL (0-150) Medications Active Scripts Medications Dose Route/Sig Max Daily Dose Days Date Category Fish Oil 500 Mg Softgel (Crivitz-3/Dha/Epa/Fish Oil) 1 Each Capsule 1 Cap PO DAILY 30 08/11/21 Reported Vitamin C (Ascorbic Acid) 500 Mg Capsule.er 500 Mg PO DAILY 08/11/21 Reported Aspirin Ec (Aspirin) 81 Mg Tablet.dr 81 Mg PO DAILY08 08/10/21 Reported Benadryl (Diphenhydramine Hcl) 25 Mg Capsule 1 Cap PO QHS 30 08/10/21 Reported Tylenol Extra Strength (Acetaminophen) 500 Mg Tablet 500 Mg PO PRN Q4HRS PRN 08/10/21 Reported Comments Chest x-ray reviewed dated 08/15/2021. There is significant improvement in left lung pleural effusion. Chest x-ray reviewed 08/13/2021. Partially loculated left upper and left lower lobe effusions. Chest tube is in place. Impression . IMPRESSION: 1. Acute hypoxemic respiratory failure, multifactorial in etiology. 2. Abnormal chest x-ray with large left pleural effusion. Status post thoracentesis. Cytology compatible with adenocarcinoma. 3. Right upper lobe lesion, cavitary lesion possible malignancy 4. Chronic obstructive pulmonary disease with acute exacerbation. 5. Smoker. 6. COVID-19 testing +. 7. Hypertension. 8. Acute renal failure 9. Positive for SARS-CoV-2 possible COVID-19 viral pneumonia 10. History of breast lump. Did not had any work-up in the past due to her r efusal. Could be source of primary malignancy Plan . Updated 08/16 Patient remains on BiPAP. Oncology has been consulted, patient with a history of breast lump declined work-up in the past Follow up on thoracentesis analysis. Continue chest tube to suction. Follow-up chest x-ray. Empiric antibiotics Follow nephrology input As needed Precedex. Overall prognosis is poor, Malignant left pleural effusion. Likely source could be breast cancer. I have been informed that the family is leaning towards comfort care. Plan to withdraw care today Updated 08/15 Patient has been on BiPAP. We will try high flow cannula. I expect oxygenation to improve since chest x-ray showing reduction in pleural effusion. Oncology has been consulted, patient with a history of breast lump declined work-up in the past Follow up on thoracentesis analysis. Continue chest tube to suction. Follow-up chest x-ray. Empiric antibiotics Follow nephrology input As needed Precedex. Overall prognosis is poor, Await pleural fluid cytology. If malignancy is confirmed would require additional work-up to look for primary LYNDSAY BOBO MD Aug 16, 2021 10:58
--- NOTE | 2021-08-16 11:00 | NUR ---
Patient's daughter Arlene Sanchez agreeable to comfort care measures; wants her on bipap until rest of family makes their final visit. aware.
[2021-08-16] MEDS: INSULIN LISPRO 300 UNITS/3 ML VIAL. SQ SCH ×2 (12:00→18:00)
[2021-08-16] MEDS ORDERED: ACETAMINOPHEN 650 MG SUPP.RECT. PR PRN (12:45)
[2021-08-16] MEDS ORDERED: MORPHINE SULFATE 4 MG/ML INJ. IVP PRN (12:45)
[2021-08-16] MEDS ORDERED: BISACODYL 10 MG SUPP.RECT. PR PRN (12:45)
[2021-08-16] MEDS ORDERED: ONDANSETRON PF 4 MG/2 ML VIAL. IVP PRN (12:45)
[2021-08-16] MEDS ORDERED: MORPHINE SULFATE 20 MG/ML CONC SOLUTION. PO/SL PRN ×2 (12:45)
[2021-08-16] MEDS ORDERED: SODIUM PHOSPHATES 19/7GM 133 ML ENEMA. PR PRN (12:45)
[2021-08-16] MEDS ORDERED: PROCHLORPERAZINE 10 MG/2 ML VIAL. IVP PRN (12:45)
[2021-08-16] MEDS ORDERED: HALOPERIDOL LACTATE 5 MG/ML VIAL. IVP PRN ×3 (12:45)
[2021-08-16] MEDS ORDERED: ACETAMINOPHEN 325 MG TABLET. PO PRN (12:45)
[2021-08-16] MEDS ORDERED: SCOPOLAMINE 1.5MG PATCH. TD PRN (12:45)
[2021-08-16] MEDS ORDERED: fentaNYL PF VIAL 100 MCG/2 ML VIAL IVP PRN ×3 (12:45)
[2021-08-16] MEDS ORDERED: 0.9 % SODIUM CHLORIDE 10 ML DISP.SYRIN. IV PRN (12:45)
[2021-08-16] MEDS ORDERED: ACETAMINOPHEN 650 MG/20.3 ML SOLUTION. PEG PRN (12:45)
[2021-08-16] MEDS: MORPHINE SULFATE 2 MG/ML INJ. IVP PRN ×2 (17:04→22:41)
[2021-08-16] MEDS ORDERED: [UNRECOGNIZED DRUG - OTHER] IV SCH (22:00)
[2021-08-16] MEDS ORDERED: AMINO ACID IV SCH (22:00)
[2021-08-16] MEDS ORDERED: TOTAL PARENTERAL NUTRITION IV SCH (22:00)
[2021-08-16] MEDS ORDERED: DEXTROSE 70% IV SCH (22:00)
[2021-08-17] MEDS: methylPREDNISolone SOD SUCC PF 40 MG/ML VIAL. IV SCH (05:08)
[2021-08-17 05:59] LABS: CALCIUM 8.8 mg/dL (8.5-10.1); CREATININE 1.5 mg/dL (0.6-1.0); GFR 40.1; MAGNESIUM 2.4 mg/dL (1.8-2.4); PHOSPHORUS 3.3 mg/dL (2.6-4.7); POTASSIUM 5.3 mmol/L (3.5-5.1)
[2021-08-17] MEDS: INSULIN LISPRO 300 UNITS/3 ML VIAL. SQ SCH ×2 (06:00)
--- NOTE | 2021-08-17 06:22 | NUR ---
Patient o2 saturations decreased to 78% around midnight. fio2 increased to 100% on bipap. patient recovered to upper 90's/100% quickly. Again around 545 this am, patient o2 saturations decreased into the low 80's. fio2 increased to 100% on bipap. patient recovered slowly to low 90s. At this time, patient heart rate irregular sinus tachycardia up to 145. patient with minimal intake volumes on bipap. Irregular breathing pattern noted. At 0550, patient daughter Arlene contacted and updated on patient condition. Family planning on coming up to unit after 5pm. RN encouraged family to come sooner if possible. Throughout shift, patient repositioned. Prn medications given for patient pain and comfort. Patient resting comfortably. O2 saturations 100%.
[2021-08-17 08:00] VITALS: BP 97/38
[2021-08-17] MEDS: cefTRIAXone IV Push 1 GM VIAL. IVP SCH (08:33)
[2021-08-17] MEDS: HEPARIN for SUB-Q USE 5,000 UNIT/ML VIAL. SQ SCH (08:33)
--- NOTE | 2021-08-17 09:06 | PDOC ---
PROGRESS NOTES Date of Service: DATE: 08/17/21 TIME: 09:02 Subjective Subjective seen in ICU on BIPAP,oxygen desaturation overnight Objective Objective Vital Signs Date Time Temp Pulse Resp B/P (MAP) Pulse Ox O2 Delivery O2 Flow Rate FiO2 08/17/21 08:00 97.7 121 6 97/38 (57) 100 BiPAP/CPAP 97.7 08/17/21 08:00 50.0 Intake and Output 08/17/21 07:00 Intake Total 564 ml Output Total 415 ml Balance 149 ml Intake Oral 0 ml IV Total 564 ml Output Urine Total 290 ml Other 125 ml Physical Exam Abdomen: Soft Heart: Regular rate Extremities: No cyanosis General: Other (In mild respiratory distress. On BiPAP) HEENT: Atraumatic Lungs: Normal air movement MUSCULOSKELETAL: No swelling Neck: No JVD Skin: No rashes COMMENT golf ball seize rt breast lump,?cancer Diagnosis Problem List Problems Medical Problems: (1) COVID-19 Status: Acute (2) Mass of left lung Status: Acute (3) Pleural effusion, left Status: Acute (4) Respiratory failure with hypoxia Status: Acute Assessment Assessment 1. Large pleural effusion, due to underlying lung cancer. 2. Some cavitary lesion in the right upper lobe. 3. COVID positive, only got 1 J and J a month ago. 4. Chronic obstructive pulmonary disease and smoker, 60-pack years. 5. Family says she had a breast lump and they did not want to pursue further investigations, that could be also maybe the source of malignant pleural effusion. PLAN: Pts daughter and son at bedside,plans to d/c BIPAP and comfort care. pt not going to survive more than 24 hours. pleural fluid cytology showed adeno ca malignant cells from lung . cxr worse rt lung infiltrates spoke with pts daughter,best option comfort care, she is going to talk to her siblings TPN for nutrition spoke with Renal. poor prognosis. spoke with pts daughter,wishes DNR ,code status changed to DNR hypoxia with met acidosis on BIPAP Ac kidney failure ,started on emergency dialysis,day #2 yesterday schocked liver LFT in 1000 range . large pleural effusion, left chest tube.2L drianed,chest tube spoke with Pulmonary poor prognosis will consult oncology also. spoke with RN central line placed. Critical care 31 mts coordinating care. At this time, Pulmonary is consulted. Interventional Radiology is consulted. Needs a chest tube. Send fluid for cytology, cultures. In the meantime, broad-spectrum antibiotic, Rocephin and Solu-Medrol. Discussed with the patient's daughter. The patient's daughter expressed that she did not want much things done because of her age, refused treatment for breast lump in the past and they wanted to talk about themselves about code status. Check labs in a.m. Acute renal failure-BUN is 100, creatinine 1.9. Increase normal saline 200 cc/h. Consult Dr. Pope for nephrology evaluation and management. Recheck labs in a.m. Prognosis of this patient is very poor due to her multiple medical problems. Start DVT prophylaxis with subcu heparin. Plan Plan of Care Problems Medical Problems: (1) COVID-19 Status: Acute (2) Mass of left lung Status: Acute (3) Pleural effusion, left Status: Acute (4) Respiratory failure with hypoxia Status: Acute Comment Review of Relevant I have reviewed the following items ambrocio (where applicable) has been applied. Labs Laboratory Tests Test 08/17/21 00:43 08/17/21 05:12 Glucose (Fingerstick) 184 mg/dL (70-99) Sodium Level 144 mmol/L (136-145) Potassium Level 5.3 mmol/L (3.5-5.1) Chloride Level 104 mmol/L (98-107) Carbon Dioxide Level 33 mmol/L (21-32) Anion Gap 7 (6-14) Blood Urea Nitrogen 71 mg/dL (7-20) Creatinine 1.5 mg/dL (0.6-1.0) Estimated GFR (Cockcroft-Gault) 40.1 Glucose Level 152 mg/dL (70-99) Calcium Level 8.8 mg/dL (8.5-10.1) Phosphorus Level 3.3 mg/dL (2.6-4.7) Magnesium Level 2.4 mg/dL (1.8-2.4) Microbiology 08/13/21 Gram Stain - Final, Resulted 08/13/21 Aerobic and Anaerobic Culture - Preliminary, Resulted 08/12/21 Urine Culture - Final, Complete 08/10/21 Blood Culture - Final, Complete NO GROWTH AFTER 5 DAYS Medications Current Medications Acetaminophen (Tylenol Supp) 650 mg PRN Q6HRS PRN NM MILD PAIN/TEMP >100.4; Start 08/16/21 at 12:45 Acetaminophen (Tylenol) 650 mg PRN Q6HRS PRN PEG MILD PAIN/TEMP >100.4; Start 08/16/21 at 12:45 Acetaminophen (Tylenol) 650 mg PRN Q6HRS PRN PO MILD PAIN/TEMP >100.4; Start 08/16/21 at 12:45 Bisacodyl (Dulcolax Supp) 10 mg PRN Q72HRS PRN NM CONSTIPATION, 1st CHOICE; Start 08/16/21 at 12:45 Fentanyl Citrate (Fentanyl 2ml Vial) 12.5 mcg PRN Q1HR PRN IVP PAIN OR DYSPNEA,2nd CHOICE; Start 08/16/21 at 12:45 Fentanyl Citrate (Fentanyl 2ml Vial) 25 mcg PRN Q1HR PRN IVP PAIN OR DYSPNEA,2nd CHOICE; Start 08/16/21 at 12:45 Fentanyl Citrate (Fentanyl 2ml Vial) 50 mcg PRN Q1HR PRN IVP PAIN OR DYSPN EA,2nd CHOICE; Start 08/16/21 at 12:45 Haloperidol Lactate (Haldol Inj) 1 mg PRN Q2HRS PRN IVP AGITATION, 2nd CHOICE; Start 08/16/21 at 12:45 Haloperidol Lactate (Haldol Inj) 1 mg PRN Q2HRS PRN IVP SEVERE DELIRIUM; Start 08/16/21 at 12:45 Haloperidol Lactate (Haldol Inj) 2 mg PRN Q2HRS PRN IVP SEVERE DELIRIUM; Start 08/16/21 at 12:45 Insulin Human Lispro (HumaLOG) 0-8 UNITS Q6HRS SQ ; Start 08/16/21 at 12:00 Lorazepam (Ativan Inj) 2 mg PRN 1X PRN IVP ANXIETY / AGITATION; Start 08/16/21 at 12:45 Lorazepam (Ativan Inj) 2 mg PRN Q4HRS PRN IVP ANXIETY / AGITATION Last administered on 08/17/21at 01:37; Start 08/16/21 at 12:45 Morphine Sulfate (Morphine Sulfate) 2 mg PRN Q2HR PRN IVP PAIN OR DYSPNEA,1st CHOICE Last administered on 08/16/21at 22:41; Start 08/16/21 at 12:45 Morphine Sulfate (Morphine Sulfate) 4 mg PRN Q2HR PRN IVP PAIN OR DYSPNEA,1st CHOICE; Start 08/16/21 at 12:45 Morphine Sulfate (Roxanol Conc) 5 mg PRN Q2HRS PRN PO/SL MODERATE PAIN OR DYSPNEA; Start 08/16/21 at 12:45 Morphine Sulfate (Roxanol Conc) 10 mg PRN Q2HRS PRN PO/SL MODERATE PAIN OR DYSPNEA; Start 08/16/21 at 12:45 Ondansetron HCl (Zofran) 4 mg PRN Q6HRS PRN IVP NAUSEA/VOMITING, 1st CHOICE; Start 08/16/21 at 12:45 Prochlorperazine Edisylate (Compazine) 10 mg PRN Q6HRS PRN IVP NAUSEA/VOMITING, 2nd CHOICE; Start 08/16/21 at 12:45 Scopolamine (Transderm-Scop) 1 patch PRN Q72HRS PRN TD SECRETIONS; Start 08/16/21 at 12:45 Sodium Monofluorophosphate (Fleet Adult) 133 ml PRN Q72HRS PRN NM CONSTIPATION, 2nd CHOICE; Start 08/16/21 at 12:45 Sodium Chloride (Normal Saline Flush) 10 ml QSHIFT PRN IV AFTER MEDS AND BLOOD DRAWS; Start 08/16/21 at 12:45 Sodium Chloride 60 meq/Potassium Chloride 40 meq/ Potassium Phosphate 3.4 mmol/ Multivitamins 10 ml/Zinc/Copper/ Manganese/ Selenium 1 ml/ Total Parenteral Nutrition/Amino Acids/Dextrose/ Fat Emulsion Intravenous 1,512 ml @ 63 mls/hr TPN CONT IV ; Start 08/16/21 at 22:00; Stop 08/17/21 at 21:59 Vitals/I & O Vital Sign - Last 24 Hours 08/16/21 08/16/21 08/16/21 08/16/21 11:33 15:39 17:04 17:04 Resp 25 Pulse Ox 100 100 100 100 O2 Delivery BiPAP/CPAP BiPAP/CPAP BiPAP/CPAP BiPAP/CPAP O2 Flow Rate 60.0 08/16/21 08/16/21 08/16/21 08/16/21 17:34 20:00 20:00 20:00 Temp 98.4 98.4 Pulse 104 Resp 24 26 B/P (MAP) 121/51 (74) Pulse Ox 100 100 O2 Delivery Ventilator Bi-pap BiPAP/CPAP O2 Flow Rate 60.0 50.0 08/16/21 08/16/21 08/16/21 08/17/21 20:50 22:41 23:11 00:52 Resp 26 24 Pulse Ox 100 100 100 O2 Delivery BiPAP/CPAP BiPAP/CPAP BiPAP/CPAP 08/17/21 08/17/21 08/17/21 08/17/21 04:00 08:00 08:00 08:00 Temp 97.7 97.7 Pulse 121 Resp 6 B/P (MAP) 97/38 (57) Pulse Ox 100 100 O2 Delivery BiPAP/CPAP Bi-pap BiPAP/CPAP O2 Flow Rate 50.0 Intake and Output 08/16/21 08/16/21 08/17/21 15:00 23:00 07:00 Intake Total 27 ml 537 ml 0 ml Output Total 60 ml 85 ml 270 ml Balance -33 ml 452 ml -270 ml Justifications for Admission Other Justification Nutrition Consultation Dietary Evaluation: Recommendations by RD: Dietary education by RD, Increase Calorie Intake, Protein supplementation, PPN/TPN Comments: REC regular diet sending Nepro oral nutrition supplements REC continue current TPN Expected Outcomes/Goals: improved po intake- goal ongoing Malnutrition Findings: Muscle Mass (Severe): Severe Depletion Body Fat Depletion (Non Severe: Mod to Severe Weight Status: Underweight ODETTE MILIAN MD Aug 17, 2021 09:06
--- NOTE | 2021-08-17 10:20 | NUR ---
pt family requested to have BIPAP removed from pt to allow pt to pass in comfort. BIPAP removed at 1020.
--- NOTE | 2021-08-17 11:15 | NUR ---
MTN NOTIFIED OF CARDIAC TOD AT 1046, NOT A CANDIDATE FOR TISSUE OR EYE DONATION, OK TO RELEASE BODY, REFERRAL NUMBER [id number]
--- NOTE | 2021-08-17 11:22 | PDOC ---
PULMONARY PROGRESS NOTES DATE: 08/17/21 TIME: 11:20 Subjective Patient currently on BiPAP. 100% FiO2. Low-dose Levophed. Left chest tube placement/80 cc came out since last night. Vitals Vital Signs Date Time Temp Pulse Resp B/P (MAP) Pulse Ox O2 Delivery O2 Flow Rate FiO2 08/17/21 08:00 97.7 121 6 97/38 (57) 100 BiPAP/CPAP 97.7 08/17/21 08:00 50.0 Comments Unable to obtain, currently on BiPAP Cardiovascular: S1, S2 Abdomen: Soft Extremities: Other (Edema) Skin: Warm Labs Laboratory Tests Test 08/15/21 16:14 08/15/21 22:45 08/16/21 05:40 08/17/21 00:43 Glucose (Fingerstick) 144 mg/dL (70-99) 146 mg/dL (70-99) 184 mg/dL (70-99) Sodium Level 143 mmol/L (136-145) Potassium Level 4.3 mmol/L (3.5-5.1) Chloride Level 103 mmol/L (98-107) Carbon Dioxide Level 35 mmol/L (21-32) Anion Gap 5 (6-14) Blood Urea Nitrogen 40 mg/dL (7-20) Creatinine 1.1 mg/dL (0.6-1.0) Estimated GFR (Cockcroft-Gault) 57.4 Glucose Level 347 mg/dL (70-99) Calcium Level 8.2 mg/dL (8.5-10.1) Phosphorus Level 4.5 mg/dL (2.6-4.7) Magnesium Level 2.5 mg/dL (1.8-2.4) Total Bilirubin 0.7 mg/dL (0.2-1.0) Direct Bilirubin 0.3 mg/dL (0.0-0.2) Aspartate Amino Transf (AST/SGOT) 64 U/L (15-37) Alanine Aminotransferase (ALT/SGPT) 325 U/L (14-59) Alkaline Phosphatase 71 U/L (46-116) Total Protein 6.4 g/dL (6.4-8.2) Albumin 2.7 g/dL (3.4-5.0) Triglycerides Level 135 mg/dL (0-150) Test 08/17/21 05:12 Sodium Level 144 mmol/L (136-145) Potassium Level 5.3 mmol/L (3.5-5.1) Chloride Level 104 mmol/L (98-107) Carbon Dioxide Level 33 mmol/L (21-32) Anion Gap 7 (6-14) Blood Urea Nitrogen 71 mg/dL (7-20) Creatinine 1.5 mg/dL (0.6-1.0) Estimated GFR (Cockcroft-Gault) 40.1 Glucose Level 152 mg/dL (70-99) Calcium Level 8.8 mg/dL (8.5-10.1) Phosphorus Level 3.3 mg/dL (2.6-4.7) Magnesium Level 2.4 mg/dL (1.8-2.4) Laboratory Tests Test 08/17/21 00:43 08/17/21 05:12 Glucose (Fingerstick) 184 mg/dL (70-99) Sodium Level 144 mmol/L (136-145) Potassium Level 5.3 mmol/L (3.5-5.1) Chloride Level 104 mmol/L (98-107) Carbon Dioxide Level 33 mmol/L (21-32) Anion Gap 7 (6-14) Blood Urea Nitrogen 71 mg/dL (7-20) Creatinine 1.5 mg/dL (0.6-1.0) Estimated GFR (Cockcroft-Gault) 40.1 Glucose Level 152 mg/dL (70-99) Calcium Level 8.8 mg/dL (8.5-10.1) Phosphorus Level 3.3 mg/dL (2.6-4.7) Magnesium Level 2.4 mg/dL (1.8-2.4) Medications Active Scripts Medications Dose Route/Sig Max Daily Dose Days Date Category Fish Oil 500 Mg Softgel (Dolphin-3/Dha/Epa/Fish Oil) 1 Each Capsule 1 Cap PO DAILY 30 08/11/21 Reported Vitamin C (Ascorbic Acid) 500 Mg Capsule.er 500 Mg PO DAILY 08/11/21 Reported Aspirin Ec (Aspirin) 81 Mg Tablet.dr 81 Mg PO DAILY08 08/10/21 Reported Benadryl (Diphenhydramine Hcl) 25 Mg Capsule 1 Cap PO QHS 30 08/10/21 Reported Tylenol Extra Strength (Acetaminophen) 500 Mg Tablet 500 Mg PO PRN Q4HRS PRN 08/10/21 Reported Comments Chest x-ray reviewed dated 08/15/2021. There is significant improvement in left lung pleural effusion. Chest x-ray reviewed 08/13/2021. Partially loculated left upper and left lower lobe effusions. Chest tube is in place. Impression . IMPRESSION: 1. Acute hypoxemic respiratory failure, multifactorial in etiology. 2. Abnormal chest x-ray with large left pleural effusion. Status post thoracentesis. Cytology compatible with adenocarcinoma. 3. Right upper lobe lesion, cavitary lesion possible malignancy 4. Chronic obstructive pulmonary disease with acute exacerbation. 5. Smoker. 6. COVID-19 testing +. 7. Hypertension. 8. Acute renal failure 9. Positive for SARS-CoV-2 possible COVID-19 viral pneumonia 10. History of breast lump. Did not had any work-up in the past due to her refusal. Could be source of primary malignancy Plan . Updated 08/17 Patient remains on BiPAP. 100% FiO2. At discussed with patient's son and daughter at the bedside. Prognosis explained to them. Both are agreeable to allow natural . We will stop the BiPAP. We will continue comfort care measures Updated 08/16 Patient remains on BiPAP. Oncology has been consulted, patient with a history of breast lump declined work-up in the past Follow up on thoracentesis analysis. Continue chest tube to suction. Follow-up chest x-ray. Empiric antibiotics Follow nephrology input As needed Precedex. Overall prognosis is poor, Malignant left pleural effusion. Likely source could be breast cancer. I have been informed that the family is leaning towards comfort care. Plan to withdraw care today Updated 08/15 Patient has been on BiPAP. We will try high flow cannula. I expect oxygenation to improve since chest x-ray showing reduction in pleural effusion. Oncology has been consulted, patient with a history of breast lump declined work-up in the past Follow up on thoracentesis analysis. Continue chest tube to suction. Follow-up chest x-ray. Empiric antibiotics Follow nephrology input As needed Precedex. Overall prognosis is poor, Await pleural fluid cytology. If malignancy is confirmed would require additional work-up to look for primary LYNDSAY BOBO MD Aug 17, 2021 11:22
--- NOTE | 2021-08-17 11:25 | NUR ---
PT BODY CLEANED AND TAKEN TO [facility] AT 1120. PT HAD BAG OF BELONGINGS WITH COAT, PANTS, AND SHIRTS TAKEN DOWN TO [facility] WITH THE BODY.
--- NOTE | 2021-08-19 18:45 | PDOC ---
Provider Note Date of Service: DATE: 08/19/21 TIME: 18:43 Provider Note summary dictated.#[id number] Justifications for Admission Other Justification ODETTE MILIAN MD Aug 19, 2021 18:45
--- NOTE | 2021-08-20 03:15 | DS ---
DATE OF DISCHARGE: 08/17/2021 SUMMARY HOSPITAL COURSE: She was an 81-year-old female. The patient was feeling weak, was diagnosed to have COVID pneumonia. She also had a complete whiteout of the left lung with x-ray shows complete effusion, whitening of the left lung. The patient had a CT of the chest, which shows large left pleural effusion with complete atelectasis of the left lung, cavitary lesion at the right upper lobe, which is 2 cm. The patient had a chest tube placed, 2 liters of bloody pleural fluid was removed. Cytology was sent and the patient also has a history of a right breast mass diagnosed 1 year ago and she did not want any investigations done golf ball size. The patient had a cytology report came back positive for malignant cells, adenocarcinoma, probably from the lung and the patient's condition deteriorated, went into acute kidney failure, hyperkalemia and the patient had emergency dialysis. Dialysis catheter was placed. The patient also had a central line placed for medications and the patient did place on BiPAP. On the simmons, the patient's condition deteriorated requiring 100% oxygen and as mentioned, the patient in the past did not want any aggressive measures or even treatment for her lung mass. The patient has had DPOA discussion with the DPOA and her daughter and son finally everybody was agreeable to DNR and comfort care and the patient on 08/17/2021. FINAL DIAGNOSES: 1. Malignant pleural effusion, left side.Hemothorax. 2. Adenocarcinoma of the lung. 3. Breast mass, golf ball size, no pathology was done, but consistent with breast cancer. 4. Acute kidney failure, requiring hemodialysis temporarily for emergency measures. 5. Chronic obstructive pulmonary disease. 6. COVID lung infection . DISPOSITION: The patient from medical causes. BENJIE/RODO/KURT DR: Adiel TID: [id number] [facility]
== END 2021-08-17 10:46 | DRG 871 ==
LOC: ER 16:58 → 6 SOUTH 21:11 → 1 WEST ICU 08-12 21:17
PROVIDERS: ADMIT Internal Medicine; ATTEND Internal Medicine
PROC: 5A09457 Assistance with Respiratory Ventilation, 24-96 Consecutive Hours, Continuous Positive Airway Pressure (ICD-10-PCS; 2021-08-12)
PROC: 02H633Z Insertion of Infusion Device into Right Atrium, Percutaneous Approach (ICD-10-PCS; principal; 2021-08-13)
PROC: 02H633Z Insertion of Infusion Device into Right Atrium, Percutaneous Approach (ICD-10-PCS; 2021-08-13)
PROC: B548ZZA Ultrasonography of Superior Vena Cava, Guidance (ICD-10-PCS; 2021-08-13)
PROC: B548ZZA Ultrasonography of Superior Vena Cava, Guidance (ICD-10-PCS; 2021-08-13)
PROC: 0W9B30Z Drainage of Left Pleural Cavity with Drainage Device, Percutaneous Approach (ICD-10-PCS; 2021-08-13)
PROC: 5A1D70Z Performance of Urinary Filtration, Intermittent, Less than 6 Hours Per Day (ICD-10-PCS; 2021-08-13)
PROC: 5A1D70Z Performance of Urinary Filtration, Intermittent, Less than 6 Hours Per Day (ICD-10-PCS; 2021-08-14)
PROC: 5A09457 Assistance with Respiratory Ventilation, 24-96 Consecutive Hours, Continuous Positive Airway Pressure (ICD-10-PCS; 2021-08-15)
PROC: 5A0935A Assistance with Respiratory Ventilation, Less than 24 Consecutive Hours, High Flow/Velocity Cannula (ICD-10-PCS; 2021-08-15)
PROC: 5A1D70Z Performance of Urinary Filtration, Intermittent, Less than 6 Hours Per Day (ICD-10-PCS; 2021-08-15)
DX: A41.89 Other specified sepsis (principal); U07.1 COVID-19; J96.01 Acute respiratory failure with hypoxia; J12.82 Pneumonia due to coronavirus disease 2019; N17.0 Acute kidney failure with tubular necrosis; E87.0 Hyperosmolality and hypernatremia; E87.2 Acidosis; J91.0 Malignant pleural effusion; J98.11 Atelectasis; E46 Unspecified protein-calorie malnutrition; C34.92 Malignant neoplasm of unspecified part of left bronchus or lung; Z68.1 Body mass index [BMI] 19.9 or less, adult; Z66 Do not resuscitate; E87.5 Hyperkalemia; F17.210 Nicotine dependence, cigarettes, uncomplicated; I10 Essential (primary) hypertension; R53.81 Other malaise; J43.9 Emphysema, unspecified; N63.0 Unspecified lump in unspecified breast; R79.89 Other specified abnormal findings of blood chemistry; Z82.49 Family history of ischemic heart disease and other diseases of the circulatory system; Z71.6 Tobacco abuse counseling
CPT/HCPCS: 32557; 36415; 36556; 36600; 71045; 71260; 76937; 80048; 80053; 80076; 81001; 82805; 82945; 82962; 83605; 83615; 83735; 83880; 83986; 84100; 84155; 84157; 84478; 84484; 85007; 85025; 86706; 87040; 87075; 87086; 87340; 87428; 88112; 88305; 89050; 93005; 94640; 94660; 94760; 96361; 96374; 99406; C1892; J0696; J1644; J1815; J2060; J2270; J2920; J2930; J3475; J3480; J3490; J7030; J7060; P9046; Q9967; 99285-25; G0378; Q0163